=== PATIENT | female | born 1960 | race Caucasian/White ===

== ENCOUNTER 2023-08-22 06:49 | Outpatient (OUT) | payer OTHER, SELFPAY ==
--- NOTE | 2023-08-22 07:15 | MM_ITS ---
Patient Name: KEITH PELAEZ MR#: [id number] : 1960 Exam Date: 08/22/2023 Ordering Doctor: DR FRANKLIN [facility] REPORT PROCEDURE: MM TOMOSYNTHESIS SCREENING BI COMPARISON: MG MAMM SCREEN 3D LARY CAD, 08/13/2022. MG MAMM LT DIAG FU, 09/06/2022. INDICATIONS: Screening, Z12.31 Calculator Name NCI Breast Cancer Risk Assessment Tool 5 Year Breast Cancer Risk 2.40% Lifetime Breast Cancer Risk 10.00% Personal Breast Cancer No Personal Ovarian Cancer No Treatments None Family Cancers Grandmother-maternal with colon cancer at age ~60. LOCATION: [facility] BREAST COMPOSITION: Heterogeneously dense,which may obscure small masses. FINDINGS: DIAGNOSTIC CATEGORY 0--INCOMPLETE: NEED ADDITIONAL IMAGING EVALUATION. Heterogeneous nodular parenchymal pattern limits diagnostic sensitivity. RIGHT BREAST: New round density measuring 1.3 x 1.3 x 1.4 cm upper-outer quadrant, posterior breast. Ultrasound follow up recommended. Stable micro clip marker upper outer quadrant, anterior breast. Stable calcifications.. LEFT BREAST: New oval nodular density measuring 0.9 x 0.8 cm upper-outer quadrant, mid to posterior breast. Ultrasound follow-up recommended. RECOMMENDATIONS: ULTRASOUND: BILATERAL BREASTS PLEASE NOTE: A NORMAL MAMMOGRAM DOES NOT EXCLUDE THE POSSIBILITY OF BREAST CANCER. A CLINICALLY SUSPICIOUS PALPABLE LUMP SHOULD BE BIOPSIED. Dictated by: Franklin Renteria MD on 08/22/2023 at 07:27 Approved by: Franklin Renteria MD on 08/22/2023 at 07:30
== END 2023-08-22 06:50 | disposition home or self-care (01) ==
LOC: MAMMO 06:49
PROVIDERS: PCP Family Medicine; Visit Provider Family Medicine
DX: Z12.31 Encounter for screening mammogram for malignant neoplasm of breast (principal); Z80.0 Family history of malignant neoplasm of digestive organs; N63.11 Unspecified lump in the right breast, upper outer quadrant; N63.21 Unspecified lump in the left breast, upper outer quadrant
CPT/HCPCS: 77063; 77067

== ENCOUNTER 2023-09-05 13:56 | Outpatient (OUT) | payer OTHER, SELFPAY ==
--- NOTE | 2023-09-05 13:59 | US_ITS ---
Patient Name: KEITH PELAEZ MR#: [id number] : 1960 Exam Date: 09/05/2023 Ordering Doctor: DR FRANKLIN ST[facility] REPORT PROCEDURE: US BREAST BI LIMITED COMPARISON: MM TOMOSYNTHESIS SCREENING BI, 08/22/2023. INDICATIONS: Abnormal Mammogram TECHNIQUE: Breast ultrasound was performed, with evaluation focusing only on specific areas of concern. FINDINGS: DIAGNOSTIC CATEGORY 3--PROBABLY BENIGN FINDING. THE FOLLOWING FINDING(S) HAS A HIGH PROBABILITY OF A BENIGN ETIOLOGY: Ultrasound of the right breast demonstrates multiple cystic lesions many of which are anechoic and simple cysts. Identified in the retroareolar location is a multilocular complex cystic structure measuring 1.2 x 1.0 x 1.3 cm in size with some components having low-level echoes in the largest component being anechoic. Identified in the left breast are multiple cystic lesions, sub cm in size. These either anechoic or demonstrate some low level echoes and likely represent a combination of simple cysts and cysts with some debris Given the multiplicity of lesions and the ultrasound lesions not definitively matching in location to the mammographic lesions, I favor a 6 month follow-up to evaluate stability. RECOMMENDATIONS: SHORT TERM FOLLOW-UP DIAGNOSTIC MAMMOGRAM BILATERAL BREASTS IN 6 MONTHS. SHORT TERM FOLLOW-UP ULTRASOUND BILATERAL BREASTS IN 6 MONTHS. PLEASE NOTE: A NORMAL ULTRASOUND EXAMINATION DOES NOT EXCLUDE THE POSSIBILITY OF BREAST CANCER. A CLINICALLY SUSPICIOUS PALPABLE LUMP SHOULD BE BIOPSIED. Dictated by: Franklin Renteria MD on 09/05/2023 at 14:50 Approved by: Franklin Renteria MD on 09/05/2023 at 14:58
--- OUTSIDE RECORDS SUMMARY | 2023-09-05 13:59 | XMS_ITS | CCD ---
Author Name Unknown Address [address] [place] [address] Organization [facility] Care Team Providers Care Jinriksha Driver Name Role Phone FRANCISCORANCE, DR SHEPARD Admitting Unavailable DEFRANCE, DR SHEPARD Attending Unavailable ZIEBER, DR LAZ Albrecht Consulting Unavailable DEFRANCE, DR SHEPARD Primary Care Unavailable DEFRANCE, DR SHEPARD Consulting Unavailable DEFRANCE, DR SHEPARD Primary Care Unavailable DEFRANCE, DR SHEPADR Admitting Unavailable DEFRANCE, DR SHEPARD Attending Unavailable ZIEBER, DR LAZ Albrecht Consulting Unavailable DEFRANCE, DR SHEPARD Consulting Unavailable Defrance Drea ALBARRAN Primary Care Provider Medications Current Medications Medication Drug Class(es) Dates Sig (Normalized) Sig (Original) atorvastatin 10 mg oral tablet (2 sources) HMG-CoA Reductase Inhibitor Start: 06-26-20 atorvastatin (LIPITOR) 10 mg tablet TAKE 1 TABLET IN THE MORNING 90 tablet 3 06/26/2023 Active azithromycin 250 mg oral tablet (1 source) Macrolide Antimicrobial Start: 08-07-20 23 End: 08-11-19 24 azithromycin (ZITHROMAX) 250 mg tablet Take 2 tablets the first day, then 1 tablet daily for 4 days. 6 tablet 0 08/07/2023 08/11/2023 Active benzonatate 200 mg oral capsule (2 sources) Non-narcotic Antitussive Start: 08-07-20 23 take 1 capsule by mouth three times daily as needed for cough benzonatate (TESSALON PERLES) 200 mg capsule Take 1 capsule (200 mg total) by mouth 3 (three) times a day as needed for cough. 30 capsule 1 08/07/2023 Active candesartan cilexetil 32 mg oral tablet (2 sources) Angiotensin 2 Receptor Kim Start: 07-11-20 23 take 1 tablet by mouth in the morning candesartan (ATACAND) 32 mg tablet Take 1 tablet (32 mg total) by mouth in the morning. 90 tablet 3 07/11/2023 Active carisoprodol 350 mg oral tablet (2 sources) Muscle Relaxant Start: 04-24-20 take 1 tablet by mouth three times daily as needed for muscle spasms carisoprodoL (SOMA) 350 mg tablet Indications: Rheumatoid arthritis, erosive, seronegative (CMS-HCC) Take 1 tablet (350 mg total) by mouth 3 (three) times a day as needed for muscle spasms. 30 tablet 0 04/24/2023 Active celecoxib 200 mg oral capsule (2 sources) Nonsteroidal Anti-inflammatory Drug Start: 07-30-20 22 take 1 capsule by mouth in the morning, then take 1 capsule by mouth at bedtime celecoxib (CeleBREX) 200 mg capsule Take 1 capsule (200 mg total) by mouth in the morning and 1 capsule (200 mg total) before bedtime. 180 capsule 3 07/30/2022 Active diclofenac sodium 0.01 mg/mg topical gel (2 sources) Nonsteroidal Anti-inflammatory Drug Start: 04-10-20 diclofenac sodium (VOLTAREN) 1 % gel Apply 2 g topically in the morning and 2 g at noon and 2 g in the evening and 2 g before bedtime. 100 g 5 04/10/2022 Active esomeprazole 40 mg delayed release oral capsule (2 sources) Proton Pump Inhibitor Start: 07-11-20 take 1 capsule by mouth in the morning esomeprazole (NexIUM) 40 mg capsule Take 1 capsule (40 mg total) by mouth in the morning. 90 capsule 3 07/11/2023 Active estradiol 2 mg oral tablet (2 sources) Estrogen Start: 08-26-19 23 estradioL (ESTRACE) 2 mg tablet TAKE 1 TABLET IN THE MORNING 90 tablet 3 08/26/2022 Active fluconazole 100 mg oral tablet (1 source) Azole Antifungal Start: 08-08-20 End: 08-22-19 24 take 1 tablet by mouth in the morning fluconazole (DIFLUCAN) 100 mg tablet Take 1 tablet (100 mg total) by mouth in the morning for 14 days. 14 tablet 0 08/08/2023 08/22/2023 Active hydroCHLOROthiazide 25 mg oral tablet (2 sources) Thiazide Diuretic Start: 06-26-20 23 hydroCHLOROthiazide (HYDRODIURIL) 25 mg tablet TAKE 1 TABLET DAILY 90 tablet 3 06/26/2023 Active lidocaine 0.05 mg/mg medicated patch (2 sources) Antiarrhythmic, Amide Local Anesthetic Start: 02-27-20 apply 1 dose transdermal route once daily lidocaine (LIDODERM) 5 % APPLY 1 PATCH DAILY AND REMOVE AND DISCARD WITHIN 12 HOURS DIRECTED 90 patch 1 02/26/2021 Active meclizine hydrochloride 25 mg oral tablet (2 sources) Antiemetic Start: 07-28-20 21 take 1 tablet by mouth three times daily as needed for dizziness meclizine (ANTIVERT) 25 mg tablet Take 1 tablet (25 mg total) by mouth 3 (three) times a day as needed for dizziness. 30 tablet 5 07/28/2021 Active medroxyPROGESTERone acetate 5 mg oral tablet (2 sources) Progestin Start: 08-26-19 23 medroxyPROGESTERone (PROVERA) 5 mg tablet TAKE 1 TABLET EVERY MORNING 90 tablet 3 08/26/2022 Active meloxicam 15 mg oral tablet (2 sources) Nonsteroidal Anti-inflammatory Drug Start: 11-21-19 23 take 1 tablet by mouth in the morning meloxicam (MOBIC) 15 mg tablet Take 1 tablet (15 mg total) by mouth in the morning. 90 tablet 3 11/20/2022 Active predniSONE 10 mg oral tablet (3 sources) Start: 08-22-19 24 predniSONE (DELTASONE) 10 mg tablet Takes as needed 90 tablet 3 08/22/2023 Active Start: 09-09-2022 End: 08-22-2023 take 1 tablet by mouth once daily predniSONE (DELTASONE) 10 mg tablet TAKE 1 TABLET BY MOUTH EVERY DAY 90 tablet 3 09/09/2022 08/22/2023 Discontinued Problems Active Problems Problem Classification Problem Date Documented Date Episodic/Chronic Anxiety disorders (2 sources) Panic disorder; Translations: [Panic disorder [episodic paroxysmal anxiety]] 08-17-2021 Chronic Esophageal disorders (2 sources) Gastroesophageal reflux disease; Translations: [Gastro-esophageal reflux disease without esophagitis] 08-17-2021 Chronic Nonmalignant breast conditions (1 source) Solitary cyst of left breast; Translations: [SOLITARY CYST OF LEFT BREAST] Onset: 09-10-2022 Episodic Osteoarthritis (6 sources) Osteoarthritis of left knee joint; Translations: [Unilateral primary osteoarthritis, left knee] Onset: 04-16-2018 Resolved: 08-17-2021 08-17-2021 Chronic Other connective tissue disease (2 sources) History of total knee arthroplasty; Translations: [Presence of left artificial knee joint] Onset: 07-31-2022 07-31-2022 Chronic Other screening for suspected conditions (not mental disorders or infectious disease) (9 sources) Other abnormal and inconclusive findings on diagnostic imaging of breast; Translations: [Encounter for screening mammogram for malignant neoplasm of breast] Onset: 08-13-2022 Episodic Residual codes; unclassified (1 source) Family history of malignant neoplasm of digestive organs; Translations: [FAM HX MALIG NEOPLASM DIGESTIV ORGN] Onset: 08-18-2022 Episodic Rheumatoid arthritis and related disease (2 sources) Rheumatoid arthritis; Translations: [Rheumatoid arthritis, unspecified] Onset: 07-01-2020 08-17-2021 Chronic Past or Other Problems Problem Classification Problem Date Documented Date Episodic/Chronic Biliary tract disease (2 sources) Cholelithiasis without obstruction; Translations: [Calculus of gallbladder without cholecystitis without obstruction] Onset: 07-11-2022 07-11-2022 Episodic Calculus of urinary tract (2 sources) Kidney stone; Translations: [Calculus of kidney] Onset: 04-17-2022 08-20-2022 Episodic Genitourinary symptoms and ill-defined conditions (2 sources) Difficulty passing urine; Translations: [Other difficulties with micturition] Onset: 04-17-2022 05-15-2022 Episodic Menopausal disorders (2 sources) Postmenopausal state; Translations: [Hormone replacement therapy] Onset: 08-16-2021 08-17-2021 Episodic Mood disorders (2 sources) Mood disorders Onset: 07-10-2022 07-10-2022 Other diseases of kidney and ureters (2 sources) Cyst of kidney; Translations: [Cyst of kidney, acquired] Onset: 05-15-2022 05-15-2022 Episodic Other non-traumatic joint disorders (2 sources) Pain in left knee; Translations: [Pain in joint, lower leg] Onset: 08-01-2021 08-01-2021 Episodic Results Test Name Value Interpretation Reference Range Facil ity MG MAMM LT DIAG FUon 023 MG MAMM LT DIAG Patient: SALMA DING. Exam Date: 09/06/2022 : 1960 Gender:F Ordering : DR DREA STEVENS Admission #: [id number] Family : Order #: [id number] CLICK HERE TO VIEW EXAM RADIOLOGY REPORT PROCEDURE: MAMMOGRAM LEFT DIAGNOSTIC DIGITAL FOLLOW UP, 09/06/2022, 12:40 ULTRASOUND BREAST LEFT LIMITED, 09/06/2022, 13:13 COMPARISON: MG MAMM SCREEN 3D LARY CAD, 08/13/2022. INDICATIONS: Abnormal findings on diagnostic imaging of breast Calculator Name NCI Breast Cancer Risk Assessment Tool 5 Year Breast Cancer Risk 2.30% Lifetime Breast Cancer Risk 10.30% Personal Breast Cancer No Personal Ovarian Cancer No Treatments None Family Cancers Grandmother-maternal with colon cancer at age 60. LOCATION: [facility] BREAST COMPOSITION: Heterogeneously dense,which may obscure small masses. FINDINGS: DIAGNOSTIC CATEGORY 2--BENIGN FINDING: LEFT BREAST: Spot magnification views demonstrate persistence of small subtle round opacities within the subareolar region. Ultrasound evaluation demonstrates several benign-appearing cysts, largest is 9 millimeters. Slightly complex but overall benign-appearing cyst or collection of cysts at the 6 o'clock subareolar region, 13 x 10 x 5 millimeters. Annual screening mammography is recommended. RECOMMENDATIONS: ROUTINE MAMMOGRAM AND CLINICAL EVALUATION IN 12 MONTHS. PLEASE NOTE: A NORMAL MAMMOGRAM DOES NOT EXCLUDE THE POSSIBILITY OF BREAST CANCER. A CLINICALLY SUSPICIOUS PALPABLE LUMP SHOULD BE BIOPSIED. Dictated by: Laz Jean M.D. on 09/06/2022 at 13:21 Approved by: Laz Jean M.D. on 09/06/2022 at 14:52 Normal [facility] US BREAST LEFT LIMITEDon US BREAST LEFT LIMITED Patient: SALMA DING. Exam Date: 09/06/2022 : 1960 Gender:F Ordering : DR DREA STEVENS Admission #: [id number] Family : Order #: [id number] CLICK HERE TO VIEW EXAM RADIOLOGY REPORT PROCEDURE: MAMMOGRAM LEFT DIAGNOSTIC DIGITAL FOLLOW UP, 09/06/2022, 12:40 ULTRASOUND BREAST LEFT LIMITED, 09/06/2022, 13:13 COMPARISON: MG MAMM SCREEN 3D LARY CAD, 08/13/2022. INDICATIONS: Abnormal findings on diagnostic imaging of breast Calculator Name NCI Breast Cancer Risk Assessment Tool 5 Year Breast Cancer Risk 2.30% Lifetime Breast Cancer Risk 10.30% Personal Breast Cancer No Personal Ovarian Cancer No Treatments None Family Cancers Grandmother-maternal with colon cancer at age 60. LOCATION: [facility] BREAST COMPOSITION: Heterogeneously dense,which may obscure small masses. FINDINGS: DIAGNOSTIC CATEGORY 2--BENIGN FINDING: LEFT BREAST: Spot magnification views demonstrate persistence of small subtle round opacities within the subareolar region. Ultrasound evaluation demonstrates several benign-appearing cysts, largest is 9 millimeters. Slightly complex but overall benign-appearing cyst or collection of cysts at the 6 o'clock subareolar region, 13 x 10 x 5 millimeters. Annual screening mammography is recommended. RECOMMENDATIONS: ROUTINE MAMMOGRAM AND CLINICAL EVALUATION IN 12 MONTHS. PLEASE NOTE: A NORMAL MAMMOGRAM DOES NOT EXCLUDE THE POSSIBILITY OF BREAST CANCER. A CLINICALLY SUSPICIOUS PALPABLE LUMP SHOULD BE BIOPSIED. Dictated by: Laz Jean M.D. on 09/06/2022 at 13:21 Approved by: Laz Jena M.D. on 09/06/2022 at 14:52 Normal [facility] MG MAMM SCREEN 3D LARY CADon 08-13-2022 MG MAMM SCREEN 3D LARY CAD Patient: SALMA DING Exam Date: 08/13/2022 : 1960 Gender:F Ordering : DR DREA STEVENS Admission #: [id number] Family : Order #: [id number] CLICK HERE TO VIEW EXAM RADIOLOGY REPORT PROCEDURE: MAMMOGRAM SCREENING 3D BILATERAL CAD COMPARISON: MG MAMM SCREEN LARY W CAD, 07/11/2020. MG MAMM SCREEN LARY W CAD, 07/07/2019. MAMMO LARY SCREEN, 07/13/2010. MG MAMM SCREEN 3D LARY CAD, 07/31/2021. INDICATIONS: Screening mammography Calculator Name NCI Breast Cancer Risk Assessment Tool 5 Year Breast Cancer Risk 2.30% Lifetime Breast Cancer Risk 10.30% Personal Breast Cancer No Personal Ovarian Cancer No Treatments None Family Cancers Grandmother-maternal with colon cancer at age 60. LOCATION: [facility] BREAST COMPOSITION: Heterogeneously dense,which may obscure small masses. FINDINGS: DIAGNOSTIC CATEGORY 0--INCOMPLETE: NEED ADDITIONAL IMAGING EVALUATION. RIGHT BREAST: No significant suspicious finding. No significant change has occurred. LEFT BREAST: 2 adjacent well-circumscribed nodules within the subareolar region seen only on tomography; approximately 12 millimeters and 9 millimeters respectively. Spot magnification views and ultrasound evaluation recommended. RECOMMENDATIONS: ADDITIONAL MAMMOGRAPHIC VIEWS REQUIRED: LEFT BREAST - LEFT CRANIOCAUDAL SPOT MAGNIFICATION VIEW - LEFT OBLIQUE SPOT MAGNIFICATION VIEW - ULTRASOUND: LEFT BREAST PLEASE NOTE: A NORMAL MAMMOGRAM DOES NOT EXCLUDE THE POSSIBILITY OF BREAST CANCER. A CLINICALLY SUSPICIOUS PALPABLE LUMP SHOULD BE BIOPSIED. Dictated by: Laz Jean M.D. on 08/15/2022 at 08:08 Approved by: Laz Jean M.D. on 08/15/2022 at 08:14 Normal [facility] 06-03-2020 ALT No additional P-5'-P [Catalytic activity/Vol] 16 Int._Unit/L Normal - [facility] Comment on above: Performed By: #### 2 019466, 4392886, 38523013, 3827490, 2173843, 5616938, [id number] #### [facility] [address] [place] [address] Diane 06-03-2020 AST [Catalytic activity/Vol] 17 Int._Unit/L Normal -43 [facility] Comment on above: Performed By: #### 2 638487, 0647009, 76774242, 0176774, 2654916, 6106052, [id number] #### [facility] [address] [place] [address] BMPon 06-03-2020 Anion gap [Moles/Vol] 13 mmol/L Normal 01-24 [facility] Comment on above: Performed By: #### 2 897487, 2765326, 00480930, 3854512, 9497258, 6509147, [id number] #### [facility] [address] [place] [address] Calcium [Mass/Vol] 9.2 mg/dL Normal 8.9-11.1 [facility] Comment on above: Performed By: #### 2 872281, 2817654, 81391721, 2528871, 2234848, 9213185, [id number] #### [facility] [address] [place] [address] Chloride [Moles/Vol] 103 mmol/L Normal 101-111 [facility] Comment on above: Performed By: #### 2 372251, 0925844, 24793541, 3146697, 7793663, 2070279, [id number] #### [facility] [address] [place] [address] CO2 [Moles/Vol] 29 mmol/L Normal 21-31 [facility] Comment on above: Performed By: #### 2 100469, 0330073, 30126411, 6628110, 3825717, 1450445, 195101986 #### [facility] [address] [place] [address] Creatinine [Mass/Vol] 0.6 mg/dL Normal 0.5-1.3 [facility] Comment on above: Performed By: #### 2 787364, 4546253, 45187384, 7401240, 1843900, 0169289, [id number] #### [facility] [address] [place] [address] Glucose [Mass/Vol] 88 mg/dL Normal 55-199 [facility] Comment on above: Result Comment: If t his glucose result represents a fasting glucose, interpretation should refer to the following reference range: 55-99 mg/dL Performed By: #### 2 169279, 3625400, 70806734, 3837676, 6729036, 8360643, 793810298 #### [facility] [address] [place] [address] Potassium [Moles/Vol] 4.6 mmol/L Normal 3.5-5.3 [facility] Comment on above: Performed By: #### 2 433943, 7141814, 16947254, 3271285, 4181649, 1688346, 740232646 #### [facility] [address] [place] [address] Sodium [Moles/Vol] 140 mmol/L Normal 135-145 [facility] Comment on above: Performed By: #### 2 034259, 2604809, 84272935, 9364105, 8416743, 7421882, 551276215 #### [facility] [address] [place] [address] Urea nitrogen [Mass/Vol] 19 mg/dL Normal 5-21 [facility] Comment on above: Performed By: #### 2 743160, 4130193, 63554302, 4764090, 5481734, 8343784, 246063610 #### [facility] [address] [place] [address] Urea nitrogen/Creatinine [Mass ratio] 32 No Units High 10-20 [facility] Comment on above: Performed By: #### 2 029836, 5243365, 71092311, 4974461, 0452104, 6820035, 139026803 #### [facility] [address] [place] [address] CBC w/Indiceson 06-03-2020 Erythrocyte distribution width (RBC) [Ratio] 13.5 % Normal 10.9-14.2 [facility] Comment on above: Performed By: #### 2 695659, 3787960, 52757937, 8013461, 5658434, 6196438, 490956763 #### [facility] [address] [place] [address] Hematocrit (Bld) [Volume fraction] 41.7 % Normal 34.0-46.0 [facility] Comment on above: Performed By: #### 2 386956, 5003517, 95347064, 3029241, 1884532, 9548476, 953426513 #### [facility] [address] [place] [address] Hemoglobin (Bld) [Mass/Vol] 14.2 g/dL Normal 12.0-16.0 [facility] Comment on above: Performed By: #### 2 056893, 0397041, 50034009, 2175462, 6808496, 1891829, 598946636 #### [facility] [address] [place] [address] MCH (RBC) [Entitic mass] 30.7 pg Normal 27.0-34.0 [facility] Comment on above: Performed By: #### 2 396216, 2411845, 74915432, 1407249, 2555329, 3078897, 341074795 #### [facility] [address] [place] [address] MCHC (RBC) [Mass/Vol] 34.0 g/dL Normal 31.4-36.0 [facility] Comment on above: Performed By: #### 2 634019, 3402114, 72537414, 9227485, 7388675, 3912767, 758264911 #### [facility] [address] [place] [address] MCV (RBC) [Entitic vol] 90.3 fL Normal 80.0-100.0 [facility] Comment on above: Performed By: #### 2 979018, 6577309, 72738776, 7188276, 5565206, 7812976, 346007748 #### [facility] [address] [place] [address] Platelet mean volume (Bld) [Entitic vol] 8.5 fL Normal 6.4-10.8 [facility] Comment on above: Performed By: #### 2 399829, 4240780, 86235081, 0219126, 7765785, 4195759, 776314371 #### [facility] [address] [place] [address] Platelets (Bld) [#/Vol] 258.0 E9/L Normal 150.0-500.0 [facility] Comment on above: Performed By: #### 2 016215, 2467564, 32200045, 7058623, 0669262, 9325884, 748028920 #### [facility] [address] [place] [address] RBC (Bld) [#/Vol] 4.6 E12/L Normal 4.3-5.9 [facility] Comment on above: Performed By: #### 2 967764, 1110480, 80057388, 4663007, 6926790, 7234606, 761380470 #### [facility] [address] [place] [address] WBC corrected for nucl RBC Auto (Bld) [#/Vol] 8.6 E9/L Normal 4.0-11.0 [facility] Comment on above: Performed By: #### 2 000679, 6800420, 64863683, 0135304, 8279154, 6772179, 125097956 #### [facility] [address] [place] [address] Lipid Panelon 06-03-2020 Cholesterol [Mass/Vol] 172 mg/dL Normal 120-200 [facility] Comment on above: Performed By: #### 2 653839, 9174663, 46617132, 7311710, 0284452, 2431655, 115454223 #### [facility] [address] [place] [address] Cholesterol in HDL [Mass/Vol] 53 mg/dL [facility] Comment on above: Result Comment: HDL > or equal to 60 mg/dL: Low cardiovascular risk HDL < 40 mg/dL : High cardiovascular risk Performed By: #### 2 464854, 8976483, 38493091, 6492834, 3310881, 6885656, 532072191 #### [facility] [address] [place] [address] Cholesterol in LDL [Mass/Vol] 104 mg/dL Normal <=129 [facility] Comment on above: Performed By: #### 2 259663, 6656770, 52012174, 4278918, 4611664, 5920885, 443300970 #### [facility] [address] [place] [address] Cholesterol in VLDL [Mass/Vol] 18 mg/dL Normal 7-40 [facility] Comment on above: Performed By: #### 2 554700, 2046151, 80684662, 9211803, 2423531, 2186664, 262240076 #### [facility] [address] [place] [address] Triglyceride [Mass/Vol] 88 mg/dL Normal <=149 [facility] Comment on above: Performed By: #### 2 480685, 2866342, 78693561, 7788781, 1629536, 2586056, 274852523 #### [facility] [address] [place] [address] Vitamin D 25 Hydroxyon 06-03 Calcidiol [Mass/Vol] 32.2 ng/mL Normal 30.0-100.0 [facility] Comment on above: Result Comment: Vit lopez D deficiency has been defined as a level of serum 25-OH vitamin D less than 20 ng/mL (1,2) by the [place] [employer] and an Endocrine Society practice guideline. The Endocrine Society further defined vitamin D insufficiency as a level between 21 and 29 ng/mL (2). 1. IOM ([place] [employer]). 2010. Dietary reference intakes for calcium and D. [place]: The National Academies Press. 2. Cullen MF, Meri NC, Krissy PIERCE, et al. Evaluation, treatment, and prevention of vitamin D deficiency: an Endocrine Society clinical practice guideline. JCEM. 2010; 96 (7):1911-30. Performed By: #### 2 173194, 8448109, 57319580, 0254980, 2617407, 9709030, 143488540 #### [facility] [address] [place] [address] eGFRon 06-03-2020 GFR/1.73 sq M predicted among blacks MDRD (S/P/Bld) [Vol rate/Area] mL/min/{1.73_m2} Normal >=59 [facility] Comment on above: Order Comment: Order added by Discern Expert. Result Comment: eGFR is race adjusted. AA=. Performed By: #### 2 033440, 8564904, 46046368, 4625064, 6263834, 3414708, 299527189 #### [facility] [address] [place] [address] GFR/1.73 sq M predicted among non-blacks MDRD (S/P/Bld) [Vol rate/Area] mL/min/{1.73_m2} Normal >=59 [facility] Comment on above: Order Comment: Order added by Discern Expert. Result Comment: Education Teacher anh kidney disease could be indicated at eGFR's of less than 60 mL/min/1.73m2. Kidney failure is indicated at less than 15 mL/min/1.73m2. Performed By: #### 2 952863, 7019566, 73010228, 4027240, 4877403, 1096773, [id number] #### [facility] [address] [place] [address] Encounters Encounter Date Encounter Type Care Provider Facility Start: 08-22-2023 Refill Drea gomez MD Work Phone: [facility] Start: 08-07-2023 Orders Only Drea gomez MD Work Phone: [facility] Start: 09-06-2022 End: 09-07-[address] DREA STEVENS Facility:[facility] Start: 08-13-2022 End: 08-14-[address] DREA STEVENS Facility:[facility] Procedures Date Procedure Procedure Detail Performing Clinician Start: 08-22-2023 Mammography Drea altamirano MD Work Phone: Start: 09-06-2022 Mammography Drea altamirano MD Work Phone: Start: 07-10-2022 Adult depression scr eening assessment Drea Stevens MD Work Phone: Plan of Treatment Date Care Activity Detail Author Start: 08-22-2024 Screening for malignant neoplasm of breast Mammogram [facility] Start: 07-11-2024 Adult BMI Screening Adult BMI Screening [facility] Start: 07-11-2024 Tobacco Screening Tobacco Screening [facility] Start: 07-06-2024 End: 11-26-2024 Patient encounter procedure 07/06/2024 8:00 AM EST Office Visit [facility] [address] [place] [address] Drea Stevens MD [address] [place] [address] [facility] Start: 09-06-2023 Screening for malignant neoplasm of breast Mammogram [facility] Start: 07-10-2023 Depression Screening Depression Screening [facility] Start: 04-11-2023 COVID-19 Vaccine ( season) COVID-19 Vaccine () [facility] Start: 2009 Administration of varicella zoster vaccine Zoster (Shingles) Vaccine (1 of 2) [facility] Start: 1980 Screening for malignant neoplasm of cervix Pap Smear [facility] Start: 1978 DTaP,Tdap and Td Vaccines (1 - Tdap) DTaP,Tdap and Td Vaccines (1 - Tdap) [facility] Start: 1977 Adult BMI Follow Up Plan Adult BMI Follow Up Plan [facility] Immunizations Immunization Date Immunization Notes Care Provider [facility] 06-08-2022 influenza, injectabl e, quadrivalent, preservative free Drea Stevens MD Work Phone: [facility] 09-15-2020 COVID-19, mRNA, LNP- S, PF, 100mcg/0.5mL Dose Drea Stevens MD Work Phone: [facility] 08-18-2020 COVID-19, mRNA, LNP- S, PF, 100mcg/0.5mL Dose Drea Stevens MD Work Phone: [facility] 05-26-2020 influenza, injectabl e, quadrivalent, preservative free Drea Stevens MD Work Phone: [facility] Payers Date Payer Category Payer Unknown [employer] [id number] 2018-Present [phone] [address] [place] [address] [id number] 1959 Unknown [id number] 1959 Unknown [id number] 1959 Unknown [id number] Social History Date Type Detail Facility Start: 07-11-2022 Tobacco smoking status NHIS Never smoked tobacco [facility] Start: 07-11-2022 Tobacco use and exposure Smokeless tobacco non-user [facility] Start: 07-11-2023 Alcohol intake Current drinker of alcohol (finding) [facility] Start: 07-10-2022 End: 07-10-2023 History of Social function [facility] Start: 07-10-2022 End: 07-10-2023 Social connection and isolation panel [facility] Do you belong to any clubs or organizations such as latter-day groups, unions, fraternal or athletic groups, or school groups? No [facility] Are you now , , , , never or living with a partner? [facility] How often to you hav e a drink containing alcohol? Monthly or less [facility] How many standard dr inks containing alcohol do you have on a typical day? 1 or 2 [facility] How often do you hav e 6 or more drinks on 1 occasion? Never [facility] How hard is it for y ou to pay for the very basics like food, housing, medical care, and heating Not hard at all [facility] Do you feel stress - tense, restless, nervous, or anxious, or unable to sleep at night because your mind is troubled all the time - these days [OSQ] Not at all [facility] Start: 06-29-2020 Education 15 [facility] Start: 07-11-2022 Alcohol Comment rarely [facility] Start: 1960 Sex Assigned At Female [facility] Start: 05-30-2021 Gender identity Identifies as female gender (finding) [facility] Start: 05-30-2021 Sexual orientation Heterosexual (finding) [facility] Medical Equipment Procedure Code Equipment Code Equipment Origin al Text Equipment Identifier Dates Bearing Tib [id number] Kn Ant Stab Inlay Vngrd Arcm - [id number] Start: 08-16-2021 Cement Bn Bio 40 gm Rpl [id number] - [id number] Start: 08-16-2021 Component Ptlr T hn 6.2mm 31mm 3 Pg Wr Vngrd Kn Strl Ser A - [id number] Start: 08-16-2021 Goals Date Patient Goal Desired Activity /State Personal health goal Comment on above: Formatting of this n ote might be different from the original. Evaluation of progress towards goal: Maximize work with PT at discharge to strengthen L knee Instructions Note Date & Type Note Facility Instructions Not on filedocumented in this en counter [facility] Instructions Note Date & Type Note Facility Instructions Not on filedocumented in this en counter [facility] Summary Purpose Family History No Family History Records FoundNo Family History Records Found Advance Directives Documents on File Type Date Recorded Patient Promotional Representative Expl anation Living Will 08/06/2021 1:39 PM [employer]IV[employer] [place] [employer] Durable Power of Filling Layer Up 08/06/2021 1:39 PM POA Latest Code Status on File Code Status Date Activated Date Inactivated Comments Full Code 08/16/2021 11:50 AM 08/17/2021 11:53 AM Additional Source Comments INFORMATION SOURCE (unrecogn ized section and content) DATE CREATED AUTHOR 06/03/2020 Leblanc Yusef [facility] DATE CREATED AUTHOR AUTHOR'S ORGANIZ ATION 09/11/2022 [facility] (unrecognized sec tion and content) Jinriksha Driver Relationship Specialty Start Date End Date Drea Stevens MD [address] [place] [address] PCP - General Family Medicine 05/09/22 Jinriksha Driver Relationship Specialty Start Date End Date Drea Stevens MD [address] [address] PCP - General Family Medicine 05/09/22 Reason for Visit (unrecogniz ed section and content) Reason Comments Med Refill FOR RECORDS PERTAINING TO PATIENTS WHO ARE OR HAVE BEEN ENROLLED IN A CHEMICAL DEPENDENCY/SUBSTANCEABUSE PROGRAM, SOME INFORMATION MAY BE OMITTED. This clinical summary was aggregated from multiple sources. Caution should be exercised in using it in the provision of clinical care. This summary normalizes information from multiple sources, and as a consequence, information in this document may materially change the coding, format and clinical context of patient data. In addition, data may be omitted in some cases. CLINICAL DECISIONS SHOULD BE BASED ON THE PRIMARY CLINICAL RECORDS. [employer] provides no warranty or guarantee of the accuracy or completeness of information in this document.
== END 2023-09-05 13:57 | disposition home or self-care (01) ==
LOC: US 13:56
PROVIDERS: PCP Family Medicine; Visit Provider Family Medicine
DX: R92.8 Other abnormal and inconclusive findings on diagnostic imaging of breast (principal); N60.02 Solitary cyst of left breast; N60.01 Solitary cyst of right breast
CPT/HCPCS: 76642

== ENCOUNTER 2023-10-15 07:52 | Outpatient (OUT) | payer OTHER, SELFPAY ==
--- OUTSIDE RECORDS SUMMARY | 2023-10-15 07:55 | XMS_ITS | CCD ---
Author Name Unknown Address [address] [place] [id number] Organization [facility] Care Team Providers Care Supervisor Rework Name Role Phone RODNEY, DR SHEPARD Admitting Unavailable DEFRANCE, DR SHEPARD Attending Unavailable ZIEBER, DR LAZ Albrecht Consulting Unavailable DEFRANCE, DR SHEPARD Primary Care Unavailable DEFRANCE, DR SHEPARD Consulting Unavailable DEFRANCE, DR SHEPARD Primary Care Unavailable DEFRANCE, DR SHEPARD Admitting Unavailable DEFRANCE, DR SEHPARD Attending Unavailable ZIEBER, DR LAZ Albrecht Consulting Unavailable DEFRANCE, DR SHEPARD Consulting Unavailable Defrance Drea ALBARRAN Primary Care Provider [phone] RODNEY, DREA Macias Referring Unavailable RODNEY, DREA Macias Primary Care Unavailable PROVIDER, UNKNOWN Attending Unavailable PROVIDER, UNKNOWN Referring Unavailable DEFRANCE, DREA Macias Primary Care Unavailable Medications Current Medications Medication Drug Class(es) Dates Sig (Normalized) Sig (Original) atorvastatin 10 mg oral tablet (4 sources) HMG-CoA Reductase Inhibitor Start: 06-26-2023 atorvastatin (LIPITOR) 10 mg tablet TAKE 1 TABLET IN THE MORNING 90 tablet 3 06/26/2023 Active azithromycin 250 mg oral tablet (1 source) Macrolide Antimicrobial Start: 08-07-2023 End: 08-11-2023 azithromycin (ZITHROMAX) 250 mg tablet Take 2 tablets the first day, then 1 tablet daily for 4 days. 6 tablet 0 08/07/2023 08/11/2023 Active benzonatate 200 mg oral capsule (4 sources) Non-narcotic Antitussive Start: 08-07-2023 take 1 capsule by mouth three times daily as needed for cough benzonatate (TESSALON PERLES) 200 mg capsule Take 1 capsule (200 mg total) by mouth 3 (three) times a day as needed for cough. 30 capsule 1 08/07/2023 Active candesartan cilexetil 32 mg oral tablet (4 sources) Angiotensin 2 Receptor Kim Start: 07-11-2023 take 1 tablet by mouth in the morning candesartan (ATACAND) 32 mg tablet Take 1 tablet (32 mg total) by mouth in the morning. 90 tablet 3 07/11/2023 Active carisoprodol 350 mg oral tablet (5 sources) Muscle Relaxant Start: 09-29-2023 take 1 tablet by mouth three times daily as needed for muscle spasms carisoprodoL (SOMA) 350 mg tablet Indications: Rheumatoid arthritis, erosive, seronegative (CMS-HCC) Take 1 tablet (350 mg total) by mouth 3 (three) times a day as needed for muscle spasms. 30 tablet 0 09/29/2023 Active Start: 04-24-2023 End: 09-29-2023 take 1 tablet by mouth three times daily as needed for muscle spasms carisoprodoL (SOMA) 350 mg tablet Indications: Rheumatoid arthritis, erosive, seronegative (CMS-HCC) Take 1 tablet (350 mg total) by mouth 3 (three) times a day as needed for muscle spasms. 30 tablet 0 04/24/2023 09/29/2023 Discontinued (Reorder) celecoxib 200 mg oral capsule (4 sources) Nonsteroidal Anti-inflammatory Drug Start: 07-30-2022 take 1 capsule by mouth in the morning, then take 1 capsule by mouth at bedtime celecoxib (CeleBREX) 200 mg capsule Take 1 capsule (200 mg total) by mouth in the morning and 1 capsule (200 mg total) before bedtime. 180 capsule 3 07/30/2022 Active diclofenac sodium 0.01 mg/mg topical gel (4 sources) Nonsteroidal Anti-inflammatory Drug Start: 04-10-2022 diclofenac sodium (VOLTAREN) 1 % gel Apply 2 g topically in the morning and 2 g at noon and 2 g in the evening and 2 g before bedtime. 100 g 5 04/10/2022 Active esomeprazole 40 mg delayed release oral capsule (4 sources) Proton Pump Inhibitor Start: 07-11-2023 take 1 capsule by mouth in the morning esomeprazole (NexIUM) 40 mg capsule Take 1 capsule (40 mg total) by mouth in the morning. 90 capsule 3 07/11/2023 Active estradiol 2 mg oral tablet (5 sources) Estrogen Start: 09-11-2023 estradioL (ESTRACE) 2 mg tablet TAKE 1 TABLET EVERY MORNING 90 tablet 3 09/11/2023 Active Start: 08-26-2022 End: 09-11-2023 estradioL (ESTRACE) 2 mg tab let TAKE 1 TABLET IN THE MORNING 90 tablet 3 08/26/2022 09/11/2023 Discontinued fluconazole 100 mg oral tablet (1 source) Azole Antifungal Start: 08-08-2023 End: 08-22-2023 take 1 tablet by mouth in the morning fluconazole (DIFLUCAN) 100 mg tablet Take 1 tablet (100 mg total) by mouth in the morning for 14 days. 14 tablet 0 08/08/2023 08/22/2023 Active hydroCHLOROthiazide 25 mg oral tablet (4 sources) Thiazide Diuretic Start: 06-26-2023 hydroCHLOROthiazide (HYDRODIURIL) 25 mg tablet TAKE 1 TABLET DAILY 90 tablet 3 06/26/2023 Active lidocaine 0.05 mg/mg medicated patch (4 sources) Antiarrhythmi c, Amide Local Anesthetic Start: 02-26-2021 apply 1 dose transdermal route once daily lidocaine (LIDODERM) 5 % APPLY 1 PATCH DAILY AND REMOVE AND DISCARD WITHIN 12 HOURS DIRECTED 90 patch 1 02/26/2021 Active meclizine hydrochloride 25 mg oral tablet (4 sources) Antiemetic Start: 07-28-2021 take 1 tablet by mouth three times daily as needed for dizziness meclizine (ANTIVERT) 25 mg tablet Take 1 tablet (25 mg total) by mouth 3 (three) times a day as needed for dizziness. 30 tablet 5 07/28/2021 Active medroxyPROGESTERone acetate 5 mg oral tablet (5 sources) Progestin Start: 09-11-2023 medroxyPROGESTERone (PROVERA) 5 mg tablet TAKE 1 TABLET EVERY MORNING 90 tablet 3 09/11/2023 Active Start: 08-26-2022 End: 09-11-2023 medroxyPROGESTERone (PROVERA ) 5 mg tablet TAKE 1 TABLET EVERY MORNING 90 tablet 3 08/26/2022 09/11/2023 Discontinued meloxicam 15 mg oral tablet (4 sources) Nonsteroidal Anti-inflammatory Drug Start: 11-20-2022 take 1 tablet by mouth in the morning meloxicam (MOBIC) 15 mg tablet Take 1 tablet (15 mg total) by mouth in the morning. 90 tablet 3 11/20/2022 Active predniSONE 10 mg oral tablet (5 sources) Start: 08-22-2023 predniSONE (DELTASONE) 10 mg tablet Takes as needed 90 tablet 3 08/22/2023 Active Start: 09-09-2022 End: 08-22-2023 take 1 tablet by mouth once daily predniSONE (DELTASONE) 10 mg tablet TAKE 1 TABLET BY MOUTH EVERY DAY 90 tablet 3 09/09/2022 08/22/2023 Discontinued Problems Active Problems Problem Classification Problem Date Documented Date Episodic/Chronic Anxiety disorders (4 sources) Panic disorder; Translations: [Panic disorder [episodic paroxysmal anxiety]] 08-17-2021 Chronic Esophageal disorders (4 sources) Gastroesophageal reflux disease; Translations: [Gastro-esophageal reflux disease without esophagitis] 08-17-2021 Chronic Nonmalignant breast conditions (1 source) Solitary cyst of left breast; Translations: [SOLITARY CYST OF LEFT BREAST] Onset: 09-10-2022 Episodic Osteoarthritis (12 sources) Osteoarthritis of left knee joint; Translations: [Unilateral primary osteoarthritis, left knee] Onset: 04-16-2018 Resolved: 08-17-2021 08-17-2021 Chronic Other connective tissue disease (4 sources) History of total knee arthroplasty; Translations: [...] 08-18-2022 Episodic Rheumatoid arthritis and related disease (5 sources) Rheumatoid arthritis; Translations: [Rheumatoid arthritis, unspecified] Onset: 07-01-2020 08-17-2021 Chronic Past or Other Problems Problem Classification Problem Date Documented Date Episodic/Chronic Biliary tract disease (4 sources) Cholelithiasis without obstruction; Translations: [Calculus of gallbladder without cholecystitis without obstruction] Onset: 07-11-2022 07-11-2022 Episodic Calculus of urinary tract (5 sources) Kidney stone; Translations: [Calculus of kidney] Onset: 04-17-2022 08-20-2022 Episodic Genitourinary symptoms and ill-defined conditions (4 sources) Difficulty passing urine; Translations: [Other difficulties with micturition] Onset: 04-17-2022 05-15-2022 Episodic Menopausal disorders (4 sources) Postmenopausal state; Translations: [Hormone replacement therapy] Onset: 08-16-2021 08-17-2021 Episodic Mood disorders (4 sources) Mood disorders Onset: 07-10-2022 07-10-2022 Other diseases of kidney and ureters (4 sources) Cyst of kidney; Translations: [Cyst of kidney, acquired] Onset: 05-15-2022 05-15-2022 Episodic Other non-traumatic joint disorders (4 sources) Pain in left knee; Translations: [Pain in joint, lower leg] Onset: 08-01-2021 08-01-2021 Episodic Results Test Name Value Interpretation Reference Range Facil ity XR ABDOMEN AP 1 VWon 024 XR ABDOMEN AP 1 VW XR ABDOMEN AP 1 VW HISTORY: Nephrolithiasis. COMPARISON: CT abdomen and pelvis on 04/30/2022. Abdominal radiograph on 04/17/2022. TECHNIQUE: Frontal views of the abdomen. FINDINGS: Overlying bowel gas limits assessment. Within this limitation: Numerous calculi projecting over the bilateral renal shadows are redemonstrated, without significant change in size or position. The largest on the left within the superior renal pole and measures 5 mm. The largest on the right measures 4 mm in the right superior renal pole. Nonobstructive bowel gas pattern. Levoscoliosis of the lumbar spine, with apex at L2. IMPRESSION: Essentially stable numerous bilateral renal calculi measuring up to 5 mm on the left and 4 mm on the right. Approved by Resident Simi Dorantes MD on 09/12/2023 9:52 AM I, Michael Hughes MD have personally reviewed the image(s) and agree with and/or edited the report Finalized by Michael Hughes MD on 09/12/2023 10:00 AM Normal [facility] CBC AND AUTO DIFFon 09-04-19 ABSOLUTE BASOPHIL 0.0 X10E9/L Normal 0.0-0.2 [facility] Comment on above: Performed By: #### C BCA, CMP, 19309-1, THYR, 30501-9 #### [facility] ([id number]) [address] [address] [place] [address] ABSOLUTE NEUTROPHIL 4.1 X10E9/L Normal 1.5-6.6 [facility] Comment on above: Performed By: #### C BCA, CMP, 55402-8, THYR, 43902-2 #### [facility] ([id number]) [address] [address] [place] [address] Basophils/100 WBC (Bld) 0.4 % Normal [facility] Comment on above: Performed By: #### C BCA, CMP, 36967-5, THYR, 97580-5 #### [facility] ([id number]) [address] [place] [address] Eosinophils (Bld) [#/Vol] 0.2 10*3/uL Normal 0.0-0.4 [facility] Comment on above: Performed By: #### C BCA, CMP, 20959-0, THYR, 51744-8 #### [facility] ([id number]) [address] [address] [place] [address] Eosinophils/100 WBC (Bld) 3.4 % Normal [facility] Comment on above: Performed By: #### C BCA, CMP, 41819-1, THYR, 56706-6 #### [facility] ([id number]) [address] [address] [place] [address] Erythrocyte distribution width (RBC) [Ratio] 13.8 % Normal 11.5-15.0 [facility] Comment on above: Performed By: #### C BCA, CMP, 11094-5, THYR, 02430-1 #### [facility] ([id number]) [address] [address] [place] [address] Hematocrit (Bld) [Volume fraction] 39.0 % Normal 35-47 [facility] Comment on above: Performed By: #### C BCA, CMP, 64979-7, THYR, 03385-5 #### [facility] ([id number]) [address] [address] [place] [address] Hemoglobin (Bld) [Mass/Vol] 12.9 g/dL Normal 11.7-15.5 [facility] Comment on above: Performed By: #### C BCA, CMP, 88063-4, THYR, 64051-0 #### [facility] ([id number]) [address] [facility] [address] [place] [address] Lymphocytes (Bld) [#/Vol] 1.9 10*3/uL Normal 1.0-3.5 [facility] Comment on above: Performed By: #### C BCA, CMP, 12269-5, THYR, 36898-2 #### [facility] ([id number]) [address] [address] [place] [address] Lymphocytes/100 WBC (Bld) 28.0 % Normal [facility] Comment on above: Performed By: #### C BCA, CMP, 95437-6, THYR, 31028-0 #### [facility] ([id number]) [address] [facility] [address] [place] [address] MCH (RBC) [Entitic mass] 29.7 pg Normal 27-34 [facility] Comment on above: Performed By: #### C BCA, CMP, 21751-7, THYR, 81863-4 #### [facility] ([id number]) [address], [address] [place] [address] MCHC (RBC) [Mass/Vol] 33.1 g/dL Normal 32-36 [facility] Comment on above: Performed By: #### C BCA, CMP, 58575-7, THYR, 40807-7 #### [facility] ([id number]) [address], [address] [place] [address] MCV (RBC) [Entitic vol] 90 fL Normal 80-100 [facility] Comment on above: Performed By: #### C BCA, CMP, 25720-7, THYR, 57106-6 #### [facility] ([id number]) [address], [address] [place] [address] Monocytes (Bld) [#/Vol] 0.6 10*3/uL Normal 0-0.9 [facility] Comment on above: Performed By: #### C BCA, CMP, 64371-4, THYR, 26159-4 #### [facility] ([id number]) [address], [address] [place] [address] Monocytes/100 WBC (Bld) 8.8 % Normal [facility] Comment on above: Performed By: #### C BCA, CMP, 18370-5, THYR, 34090-5 #### [facility] ([id number]) [address], [address] [place] [address] Neutrophils/100 WBC (Bld) 59.4 % Normal [facility] Comment on above: Performed By: #### Daisy BCA, CMP, 97094-4, THYR, 59647-0 #### [facility] ([id number]) [address], [address] [place] [address] Platelet mean volume (Bld) [Entitic vol] 8.7 fL Normal 7-12 [facility] Comment on above: Performed By: #### C BCA, CMP, 49033-3, THYR, 77255-5 #### [facility] ([id number]) [address], [address] [place] [address] Platelets (Bld) [#/Vol] 248 10*3/uL Normal 150-450 [facility] Comment on above: Performed By: #### C BCA, CMP, 56299-0, THYR, 39872-8 #### [facility] ([id number]) [address], [address] [place] [address] RBC COUNT 4.36 X10E12/L Normal 3.80-5.20 [facility] Comment on above: Performed By: #### C BCA, CMP, 33460-5, THYR, 06466-0 #### [facility] ([id number]) [address], [address] [place] [address] WBC (Bld) [#/Vol] 6.9 10*3/uL Normal 4.0-11.0 [facility] Comment on above: Performed By: #### C BCA, CMP, 61689-3, THYR, 04453-4 #### [facility] ([id number]) [address] [place] [address] COMPREHENSIVE METABOLIC PANE Judah 09-04-2023 Albumin [Mass/Vol] 4.3 g/dL Normal 3.2-5.3 [facility] Comment on above: Performed By: #### C BCA, CMP, 56791-6, THYR, 87788-0 #### [facility] ([id number]) [address], [address] [place] [address] ALP [Catalytic activity/Vol] 51 U/L Normal 39-130 [facility] Comment on above: Performed By: #### C BCA, CMP, 75693-7, THYR, 57076-1 #### [facility] ([id number]) [address], [address] [place] [address] ALT [Catalytic activity/Vol] 13 U/L Normal 0-31 [facility] Comment on above: Performed By: #### C BCA, CMP, 39132-6, THYR, 85692-7 #### [facility] ([id number]) [address], [address] [place] [address] Anion gap [Moles/Vol] 6 mmol/L Normal 5-15 [facility] Comment on above: Performed By: #### C BCA, CMP, 60712-4, THYR, 78621-7 #### [facility] ([id number]) [address], [address] [place] [address] AST [Catalytic activity/Vol] 16 U/L Normal 0-41 [facility] Comment on above: Performed By: #### C BCA, CMP, 01690-3, THYR, 21815-0 #### [facility] ([id number]) [address], [address] [place] [address] Bilirubin [Mass/Vol] 0.4 mg/dL Normal 0.3-1.2 [facility] Comment on above: Performed By: #### C BCA, CMP, 47340-7, THYR, 59396-0 #### [facility] ([id number]) [address], [address] [place] [address] Calcium [Mass/Vol] 9.6 mg/dL Normal 8.5-10.5 [facility] Comment on above: Performed By: #### C BCA, CMP, 74595-3, THYR, 71478-5 #### [facility] ([id number]) [address] [place] [address] Chloride [Moles/Vol] 100 mmol/L Normal 98-109 [facility] Comment on above: Performed By: #### C BCA, CMP, 81611-3, THYR, 63350-6 #### [facility] ([id number]) [address] [place] [address] CO2 [Moles/Vol] 30 mmol/L Normal 22-32 [facility] Comment on above: Performed By: #### C BCA, CMP, 07310-7, THYR, 16961-0 #### [facility] ([id number]) [address] [address] [place] [address] Creatinine [Mass/Vol] 0.73 mg/dL Normal 0.40-1.00 [facility] Comment on above: Result Comment: METH OD TRACEABLE TO IDMS STANDARD Performed By: #### C BCA, CMP, 06533-7, THYR, 82269-3 #### [facility] ([id number]) [address] [place] [address] eGFR (CKD-EPI) NON-RACE DEPENDENT >90 Normal >59 [facility] Comment on above: Result Comment: Reported eGFR is based on the CKD-EPI 2020 equation that does not use a race coefficient. Performed By: #### C BCA, CMP, 18788-8, THYR, 46163-3 #### [facility] ([id number]) [address] [address] [place] [address] Glucose [Mass/Vol] 98 mg/dL Normal 65-99 [facility] Comment on above: Performed By: #### C BCA, CMP, 03118-4, THYR, 31801-8 #### [facility] ([id number]) [address] [address] [place] [address] Potassium [Moles/Vol] 4.0 mmol/L Normal 3.5-5.0 [facility] Comment on above: Performed By: #### C BCA, CMP, 00004-3, THYR, 19261-0 #### [facility] ([id number]) [address] [address] [place] [address] Protein [Mass/Vol] 7.2 g/dL Normal 6.0-8.0 [facility] Comment on above: Performed By: #### C BCA, CMP, 80369-6, THYR, 73706-7 #### [facility] ([id number]) [address] [address] [place] [address] Sodium [Moles/Vol] 136 mmol/L Normal 134-146 [facility] Comment on above: Performed By: #### Daisy BCA, CMP, 20213-1, THYR, 97906-6 #### [facility] ([id number]) [address], [address] [place] [address] Urea nitrogen [Mass/Vol] 24 mg/dL Normal 5-27 [facility] Comment on above: Performed By: #### Daisy BCA, CMP, 89266-7, THYR, 32327-5 #### [facility] ([id number]) [address] [place] [address] Lipid 1996 panelon 4 Cholesterol [Mass/Vol] 215 mg/dL High 150-200 [facility] Comment on above: Performed By: #### Daisy BCA, CMP, 99250-5, THYR, 25354-7 #### [facility] ([id number]) [address] [place] [address] Cholesterol in HDL [Mass/Vol] 47 mg/dL Normal >39 [facility] Comment on above: Result Comment: HDL <40 mg/dL - High Risk HDL > or = 40mg/dL- Desirable HDL >60 mg/dL - Negative Risk Performed By: #### Daisy BCA, CMP, 79563-9, THYR, 16967-9 #### [facility] ([id number]) [address] [place] [address] Cholesterol in LDL [Mass/Vol] 141 mg/dL High <130 [facility] Comment on above: Result Comment: LDL <100 mg/dL - Desirable LDL >160 mg/dL - High Risk Performed By: #### C BCA, CMP, 78931-2, THYR, 02528-4 #### [facility] ([id number]) [address] [place] [address] Cholesterol in VLDL [Mass/Vol] 27 mg/dL Normal 0-30 [facility] Comment on above: Performed By: #### C BCA, CMP, 33835-2, THYR, 25497-6 #### [facility] ([id number]) [address] [place] [address] CHOLESTEROL:HDL 4.6 Normal 1.0-5.0 [facility] Comment on above: Performed By: #### C BCA, CMP, 63876-8, THYR, 13338-7 #### [facility] ([id number]) [address] [place] [address] Triglyceride [Mass/Vol] 134 mg/dL Normal 27-150 [facility] Comment on above: Performed By: #### C BCA, CMP, 14218-4, THYR, 65531-0 #### [facility] ([id number]) [address] [place] [address] THYROID PROFILEon 09-04-2023 Free T4 [Mass/Vol] 0.67 ng/dL Normal 0.61-1.60 [facility] Comment on above: Performed By: #### C BCA, CMP, 78235-3, THYR, 15338-4 #### [facility] ([id number]) [address] [address] [place] [address] TSH 0.91 uIU/mL Normal 0.49-4.67 [facility] Comment on above: Performed By: #### C BCA, CMP, 58448-9, THYR, 08467-7 #### [facility] ([id number]) [address] [place] [address] Vitamin D+Metabolites [Mass/ Vol]on 09-04-2023 VITAMIN D 25 HYD TOT 35.0 ng/mL Normal 30-100 [facility] Comment on above: Result Comment: Vitamin D status 25 [place] Vitamin D Deficiency <20 ng/mL Insufficiency 20-29 ng/mL Sufficiency 30-100 ng/mL Toxicity >100 ng/mL NOTE: A pediatric reference range has not been established by the electrician office of this kit. The [employer] recommends a Vitamin D level of = or >20ng/mL in infants and children. Performed By: #### C BCA, CMP, 40283-1, THYR, 73820-2 #### [facility] ([id number]) [address] [facility] [place] [address] MG MAMM LT DIAG FUon 023 MG MAMM LT DIAG FU Patient: SALMA PELAEZ Exam Date: 09/06/2022 : 1960 Gender:F Ordering : DR DREA ROA Admission #: [id number] Family : Order #: [id number] CLICK HERE TO VIEW EXAM RADIOLOGY REPORT [...] colon cancer at age 59. LOCATION: [facility] BREAST COMPOSITION: Heterogeneously dense,which may obscure small [...] M.D. on 09/06/2022 at 14:52 Normal [facility] US BREAST LEFT LIMITEDon US BREAST LEFT LIMITED Patient: SALMA PELAEZ Exam Date: 09/06/2022 : 1960 Gender:F Ordering : DR DREA ROA Admission #: [id number] Family : Order #: [id number] CLICK HERE TO VIEW EXAM RADIOLOGY REPORT [...] colon cancer at age 59. LOCATION: [facility] BREAST COMPOSITION: Heterogeneously dense,which may obscure small [...] M.D. on 09/06/2022 at 14:52 Normal [facility] MG MAMM SCREEN 3D LARY CADon 08-13-2022 MG MAMM SCREEN 3D LARY CAD Patient: SALMA PELAEZ Exam Date: 08/13/2022 : 1960 Gender:F Ordering : DR DREA ROA Admission #: [id number] Family : Order #: [id number] CLICK HERE TO VIEW EXAM RADIOLOGY REPORT [...] colon cancer at age 59. LOCATION: [facility] BREAST COMPOSITION: Heterogeneously dense,which may obscure small [...] Jean M.D. on 08/15/2022 at 08:14 Normal [facility] [place] 06-03-2020 ALT No additional P-5'-P [Catalytic activity/Vol] 16 Int._Unit/L Normal 6-46 [facility] Comment on above: Performed By: #### 2 383037, 9568777, 86346060, 8014109, 5736581, 8331953, [id number] #### [facility] [address] [place] [address] [place] 06-03-2020 AST [Catalytic activity/Vol] 17 Int._Unit/L Normal 5-43 [facility] Comment on above: Performed By: #### 2 885349, 1476250, 58109931, 0623440, 5620763, 1423064, [id number] #### [facility] [address] [place] [address] BMPon 06-03-2020 Anion gap [Moles/Vol] 13 mmol/L Normal 6-16 [facility] Comment on above: Performed By: #### 2 699637, 6881973, 39890805, 3422626, 3059747, 4360810, [id number] #### [facility] [address] [place] [address] Calcium [Mass/Vol] 9.2 mg/dL Normal 8.9-11.1 [facility] Comment on above: Performed By: #### 2 562409, 0910823, 23395641, 0286984, 1210280, 8867842, [id number] #### [facility] [address] [place] [address] Chloride [Moles/Vol] 103 mmol/L Normal 101-111 [facility] Comment on above: Performed By: #### 2 123208, 1434028, 61914052, 5744576, 2198808, 5337171, [id number] #### [facility] [address] [place] [address] CO2 [Moles/Vol] 29 mmol/L Normal 21-31 [facility] Comment on above: Performed By: #### 2 706984, 0187395, 04146514, 2317863, 6071522, 3266434, [id number] #### [facility] [address] [place] [address] Creatinine [Mass/Vol] 0.6 mg/dL Normal 0.5-1.3 [facility] Comment on above: Performed By: #### 2 411261, 3373231, 97055813, 1749631, 8422567, 3573232, [id number] #### [facility] [address] [place] [address] Glucose [Mass/Vol] 88 mg/dL Normal 55-199 [facility] Comment on above: Result Comment: If t his glucose result represents a fasting glucose, interpretation should refer to the following reference range: 55-99 mg/dL Performed By: #### 2 202243, 7763872, 90043593, 2069371, 1581705, 2058655, [id number] #### [facility] [address] [place] [address] Potassium [Moles/Vol] 4.6 mmol/L Normal 3.5-5.3 [facility] Comment on above: Performed By: #### 2 507845, 8619004, 83288954, 5651215, 1049615, 0836822, 188016972 #### [facility] [address] [place] [address] Sodium [Moles/Vol] 140 mmol/L Normal 135-145 [facility] Comment on above: Performed By: #### 2 383556, 8359127, 74587040, 7412857, 8827178, 7015638, 912118524 #### [facility] [address] [place] [address] Urea nitrogen [Mass/Vol] 19 mg/dL Normal 5-21 [facility] Comment on above: Performed By: #### 2 110522, 8724383, 38230432, 5605550, 4519561, 4538005, 902913204 #### [facility] [address] [place] [address] Urea nitrogen/Creatinine [Mass ratio] 32 No Units High 10- [facility] Comment on above: Performed By: #### 2 161026, 7042551, 23613807, 4803803, 8751299, 8053489, 926346056 #### [facility] [address] [place] [address] CBC w/Indiceson 06-03-2020 Erythrocyte distribution width (RBC) [Ratio] 13.5 % Normal 10.9-14.2 [facility] Comment on above: Performed By: #### 2 784557, 1348614, 49616796, 3276254, 7282192, 6807648, 645286277 #### [facility] [address] [place] [address] Hematocrit (Bld) [Volume fraction] 41.7 % Normal 34.0-46.0 [facility] Comment on above: Performed By: #### 2 505130, 4595822, 69409128, 0160833, 1497265, 3146030, 550474439 #### [facility] [address] [place] [address] Hemoglobin (Bld) [Mass/Vol] 14.2 g/dL Normal 12.0-16.0 [facility] Comment on above: Performed By: #### 2 924760, 1602476, 79688470, 7845448, 5177184, 5176874, 737071195 #### [facility] [address] [place] [address] MCH (RBC) [Entitic mass] 30.7 pg Normal 27.0-34.0 [facility] Comment on above: Performed By: #### 2 560450, 3417255, 53642820, 9664757, 2512001, 0965741, 378649065 #### [facility] [address] [place] [address] MCHC (RBC) [Mass/Vol] 34.0 g/dL Normal 31.4-36.0 [facility] Comment on above: Performed By: #### 2 255542, 9126005, 32056343, 0240799, 0844519, 5819701, 742464537 #### [facility] [address] [place] [address] MCV (RBC) [Entitic vol] 90.3 fL Normal 80.0-100.0 [facility] Comment on above: Performed By: #### 2 249956, 0576069, 52660462, 1216517, 2536636, 7887997, 131663675 #### [facility] [address] [place] [address] Platelet mean volume (Bld) [Entitic vol] 8.5 fL Normal 6.4-10.8 [facility] Comment on above: Performed By: #### 2 745088, 6920997, 59888316, 4148236, 7422172, 7516296, 399562426 #### [facility] [address] [place] [address] Platelets (Bld) [#/Vol] 258.0 E9/L Normal 150.0-500.0 [facility] Comment on above: Performed By: #### 2 091367, 3226007, 93428525, 0128820, 9613151, 3008760, 567583273 #### [facility] [address] [place] [address] RBC (Bld) [#/Vol] 4.6 E12/L Normal 4.3-5.9 [facility] Comment on above: Performed By: #### 2 656978, 8259290, 03887022, 9325476, 0798149, 8669323, 310821395 #### [facility] [address] [place] [address] WBC corrected for nucl RBC Auto (Bld) [#/Vol] 8.6 E9/L Normal 4.0-11.0 [facility] Comment on above: Performed By: #### 2 900045, 4090751, 49499822, 4223891, 9628826, 4351475, 750818145 #### [facility] [address] [place] [address] Lipid Panelon 06-03-2020 Cholesterol [Mass/Vol] 172 mg/dL Normal 120-200 [facility] Comment on above: Performed By: #### 2 021160, 1765055, 31305951, 9516004, 7056639, 6041453, 880905595 #### [facility] [address] [place] [address] Cholesterol in HDL [Mass/Vol] 53 mg/dL [facility] Comment on above: Result Comment: HDL > or equal to 60 mg/dL: Low cardiovascular risk HDL < 40 mg/dL : High cardiovascular risk Performed By: #### 2 886169, 8408286, 48709343, 1308941, 5196873, 1121454, 060734978 #### [facility] [address] [place] [address] Cholesterol in LDL [Mass/Vol] 104 mg/dL Normal <=129 [facility] Comment on above: Performed By: #### 2 280832, 1254982, 44438305, 5730573, 2021499, 1803972, 442391917 #### [facility] [address] [place] [address] Cholesterol in VLDL [Mass/Vol] 18 mg/dL Normal 7-40 [facility] Comment on above: Performed By: #### 2 324382, 4067743, 20368171, 5561082, 9718329, 7372916, 253044259 #### [facility] [address] [place] [address] Triglyceride [Mass/Vol] 88 mg/dL Normal <=149 [facility] Comment on above: Performed By: #### 2 232263, 9579474, 99478991, 7793132, 7044777, 6024860, 038590438 #### [facility] [address] [place] [address] Vitamin D 25 Hydroxyon 10-24 -2020 Calcidiol [Mass/Vol] 32.2 ng/mL Normal 30.0-100.0 [facility] Comment on above: Result Comment: Vit lopez D deficiency has been defined as a level of serum 25-OH vitamin D less than 20 ng/mL (1,2) by the [employer] of [employer] and an Endocrine Society practice guideline. The Endocrine Society further defined vitamin D insufficiency as a level between 21 and 29 ng/mL (2). 1. IOM ([employer] of [employer]). 2010. Dietary reference intakes for calcium and D. [place]: The National Academies Press. 2. Cullen MF, Meri NC, Krissy PIERCE, et al. Evaluation, treatment, and prevention of vitamin D deficiency: an Endocrine Society clinical practice guideline. JCEM. 2010; 96 (7):1911-30. Performed By: #### 2 074778, 6122244, 17209158, 3688877, 1669204, 0751791, 775935063 #### [facility] [address] [place] [address] eGFRon 06-03-2020 GFR/1.73 sq M predicted among blacks MDRD (S/P/Bld) [Vol rate/Area] mL/min/{1.73_m2} Normal >=59 [facility] Comment on above: Order Comment: Order added by Discern Expert. Result Comment: eGFR is race adjusted. AA=. Performed By: #### 2 421529, 1538314, 26799389, 3322385, 9617369, 6468995, 715543679 #### [facility] [address] [place] [address] GFR/1.73 sq M predicted among non-blacks MDRD (S/P/Bld) [Vol rate/Area] mL/min/{1.73_m2} Normal >=59 [facility] Comment on above: Order Comment: Order added by Discern Expert. Result Comment: Junior Programmer Analyst anh kidney disease could be indicated at eGFR's of less than 60 mL/min/1.73m2. Kidney failure is indicated at less than 15 mL/min/1.73m2. Performed By: #### 2 528264, 6436275, 84750512, 6974525, 7470267, 7332082, 864237373 #### [facility] [address] [place] [address] Encounters Encounter Date Encounter Type Care Provider Facility Start: 09-29-2023 Orders Only Drea gomez MD Work Phone: [facility] Comment on above: Rheumatoid arthritis , erosive, seronegative ([facility]) Start: 09-11-2023 Refill Drea gomez MD Work Phone: [facility] Start: 09-11-2023 End: 09-12-2023 ambulatory UNKNOWN PROVIDER [facility] Start: 09-04-2023 End: 09-05-2023 ambulatory DREA ROA [facility] Start: 09-04-2023 Encounter for genera l adult medical examination without abnormal findings DREA ROA [facility] Start: 08-22-2023 Refill Drea gomez MD Work Phone: [facility] Start: 08-07-2023 Orders Only Drea gomez MD Work Phone: [facility] Start: 09-06-2022 End: 09-07-[address] DREA ROA Facility:[facility] Start: 08-13-2022 End: 08-14-[address] DREA ROA Facility:[facility] Procedures Date Procedure Procedure Detail Performing Clinician Start: 08-22-2023 Mammography Drea altamirano MD Work Phone: Start: 09-06-2022 Mammography Drea altamirano MD Work Phone: Start: 07-10-2022 Adult depression scr eening assessment Drea Roa MD Work Phone: Plan of Treatment Date Care Activity Detail Author Start: 08-22-2024 Screening for malignant neoplasm of breast Mammogram [facility] Start: 07-11-2024 Adult BMI Screening Adult BMI Screening [facility] Start: 07-11-2024 Tobacco Screening Tobacco Screening [facility] Start: 07-06-2024 End: 07-06-2024 Patient encounter procedure 07/06/2024 8:00 AM EST Office Visit [facility] [address] Drea Roa MD [address] [place], [place] [address] [facility] Start: 09-06-2023 Screening for malignant neoplasm of breast Mammogram [facility] Start: 07-10-2023 Depression Screening Depression Screening [facility] Start: 04-11-2023 COVID-19 Vaccine ( season) COVID-19 Vaccine ( season) [facility] Start: 2009 Administration of varicella zoster vaccine Zoster (Shingles) Vaccine (1 of 2) [facility] Start: 1980 Screening for malignant neoplasm of cervix Pap Smear [facility] Start: 1978 DTaP,Tdap and Td Vaccines (1 - Tdap) DTaP,Tdap and Td Vaccines (1 - Tdap) [facility] Start: 1977 Adult BMI Follow Up Plan Adult BMI Follow Up Plan [facility] Immunizations Immunization Date Immunization Notes Care Provider Fa [facility] 06-08-2022 influenza, injectabl e, quadrivalent, preservative free Drea Roa MD Work Phone: [facility] 09-15-2020 COVID-19, mRNA, LNP- S, PF, 100mcg/0.5mL Dose Drea Roa MD Work Phone: [facility] 08-18-2020 COVID-19, mRNA, LNP- S, PF, 100mcg/0.5mL Dose Drea Roa MD Work Phone: [facility] 05-26-2020 influenza, injectabl e, quadrivalent, preservative free Drea Roa MD Work Phone: [facility] Payers Date Payer Category Payer Unknown [employer] [id number] 2018-Present [phone] [address] [place] [address] [id number] 1959 Unknown [id number] 1959 Unknown [id number] 1959 Unknown [id number] 6 1960 Unknown [id number] 6 1960 Unknown [id number] Social History Date Type Detail Facility Start: 07-11-2022 Tobacco smoking status ORIS Never smoked tobacco [facility] Start: 07-11-2022 Tobacco use and exposure Smokeless tobacco non-user [facility] Start: 07-11-2023 Alcohol intake Current drinker of alcohol (finding) [facility] Start: 07-10-2022 End: 07-10-2023 History of Social function [facility] Start: 07-10-2022 End: 07-10-2023 Social connection and isolation panel [facility] Do you belong to any clubs or organizations such as bahai groups, unions, fraternal or athletic groups, or school groups? No [facility] Are you now , , , , never or living with a partner? [facility] How often to you hav e a drink containing alcohol? Monthly or less [facility] How many standard dr inks containing alcohol do you have on a typical day? 1 or [address] [facility] How often do you hav e 6 or more drinks on 1 occasion? Never [facility] How hard is it for y ou to pay for the very basics like food, housing, medical care, and heating Not hard at all [facility] Do you feel stress - tense, restless, nervous, or anxious, or unable to sleep at night because your mind is troubled all the time - these days [OSQ] Not at all [facility] Start: 06-29-2020 Education [address] [facility] Start: 07-11-2022 Alcohol Comment rarely [facility] Start: 1960 Sex Assigned At Female [facility] Start: 05-30-2021 Gender identity Identifies as female gender (finding) [facility] Start: 05-30-2021 Sexual orientation Heterosexual (finding) [facility] Medical Equipment Procedure Code Equipment Code Equipment Origin al Text Equipment Identifier Dates Bearing Tib [id number] Kn Ant Stab Inlay Vngrd Arcm - [id number] Start: 08-16-2021 Cement Bn Bio 40 gm Rpl [id number] - [id number] Start: 08-16-2021 Component Ptlr T hn 6.2mm 31mm 3 Pg Wr Vngrd Kn Strl Ser A - [id number] Start: 08-16-2021 Goals Date Patient Goal Desired Activity /State Personal health goal Comment on above: Formatting of this n ote might be different from the original. Evaluation of progress towards goal: Maximize work with PT at discharge to strengthen L knee History of Present illness Narrative 09-29-2023 Drea Roa MD - 09/29/2023 8:58 AM EST Note Date & Type Note Facility 09-29-2023 History of Presen t illness Narrative OAARS check for soma refill documented in this encounter [facility] Evaluation note Note Date & Type Note Facility Evaluation note Diagnosis Rheumatoid arthritis, erosive, seronegative (CMS-HCC) documented in this encounter [facility] Instructions Note Date & Type Note Facility Instructions Not on filedocumented in this en counter [facility] Instructions Note Date & Type Note Facility Instructions Not on filedocumented in this en counter [facility] Summary Purpose Family History No Family History Records FoundNo Family History Records FoundNo Family History Records Found Advance Directives Documents on File Type Date Recorded Patient Power Superintendent Expl anation Living Will 08/06/2021 1:39 PM LIVING [place] [employer] Durable Power of Physician Office Rep 08/06/2021 1:39 PM POA Latest Code Status on File Code Status Date Activated Date Inactivated Comments Full Code 08/16/2021 11:50 AM 08/17/2021 11:53 AM Additional Source Comments INFORMATION SOURCE (unrecogn ized section and content) DATE CREATED AUTHOR 06/03/2020 Benji Desouzaus [facility] DATE CREATED AUTHOR AUTHOR'S ORGANIZ ATION 09/11/2022 [facility] DATE CREATED AUTHOR AUTHOR'S ORGANIZ ATION 09/14/2023 [facility] Care Teams (unrecognized sec tion and content) Supervisor Rework Relationship Specialty Start Date End Date Drea Roa MD [address] [place] [address] PCP - General Family Medicine 05/09/22 Supervisor Rework Relationship Specialty Start Date End Date Drea Roa MD [address] [place] [address] PCP - General Family Medicine 05/09/22 Reason [...] BE BASED ON THE PRIMARY CLINICAL RECORDS. [facility] [employer] provides no warranty or guarantee of the accuracy or completeness of information in this document.
--- NOTE | 2023-10-15 07:58 | US_ITS ---
The [address] [address] Patient Name: KEITH PELAEZ MRN: [id number] date: 1960 Sex: F Assigned Patient Location: US Current Patient Location: US Accession/Order Number: [id number] Exam Date: 10/15/2023 08:00 Report Date: 10/15/2023 08:54 At the request of: DREA STEVENS Procedure: US right upper quadrant EXAM: US right upper quadrant HISTORY: Calculus Of Gallbladder K80.20 COMPARISON: None. TECHNIQUE: Grayscale, color and Doppler FINDINGS: The liver is normal in size, contour and echotexture with no focal mass. Hepatopedal flow in the main portal vein with a velocity of 27 cm/s. The gallbladder is normal in appearance. The gallbladder wall measures 1.4 mm per the common bile duct measures 2.3 mm. Negative sonographic Lozano sign. The visualized pancreas is normal The right kidney is normal measuring 10.2 x 6.0 x 5.4 cm. Echogenic foci measuring 4 mm, nonobstructing nephrolith No free fluid US/US right upper quadrant IMPRESSION: No cholelithiasis Electronically authenticated by: DREA LEON Date: 10/15/2023 08:54
== END 2023-10-15 07:53 | disposition home or self-care (01) ==
LOC: US 07:52
PROVIDERS: PCP Family Medicine; Visit Provider Family Medicine
DX: K80.20 Calculus of gallbladder without cholecystitis without obstruction (principal)
CPT/HCPCS: 76705

== ENCOUNTER 2024-03-19 12:44 | Outpatient (OUT) | payer OTHER, SELFPAY ==
--- NOTE | 2024-03-19 12:47 | MM_ITS ---
Patient Name: KEITH PELAEZ MR#: [id number] : 1960 Exam Date: 03/19/2024 Ordering Doctor: DR DREA STEVENS RADIOLOGY REPORT PROCEDURE: MM TOMOSYNTHESIS DIAGNOSTIC BI, 03/19/2024, 12:46 US BREAST BI LIMITED, 03/19/2024, 13:00 COMPARISON: US BREAST BI LIMITED, 09/05/2023. MM TOMOSYNTHESIS SCREENING BI, 08/22/2023. MG MAMM LT DIAG FU, 09/06/2022. MG MAMM SCREEN 3D LARY CAD, 08/13/2022. MAMMO LARY SCREEN, 07/13/2010. INDICATIONS: Abnormal Mammogram Calculator Name NCI Breast Cancer Risk Assessment Tool 5 Year Breast Cancer Risk 2.50% Lifetime Breast Cancer Risk 9.70% Personal Breast Cancer No Personal Ovarian Cancer No Treatments None Family Cancers Grandmother-maternal with colon cancer at age ~60. LOCATION: [facility] BREAST COMPOSITION: The breasts are heterogeneously dense,which may obscure small masses. FINDINGS: DIAGNOSTIC CATEGORY 3--PROBABLY BENIGN FINDING. THE FOLLOWING FINDING(S) HAS A HIGH PROBABILITY OF A BENIGN ETIOLOGY: RIGHT BREAST: Stable partially circumscribed masses and a few benign-appearing scattered calcifications. Ultrasound demonstrates multiple complex but overall benign-appearing cysts/lesions. No appreciable change. Follow-up diagnostic mammography and ultrasound in 6 months. LEFT BREAST: Stable partially circumscribed masses/cysts. Ultrasound demonstrates multiple complex but overall benign-appearing cysts/lesions. No appreciable change. Follow-up diagnostic mammography and ultrasound in 6 months. RECOMMENDATIONS: SHORT TERM FOLLOW-UP DIAGNOSTIC MAMMOGRAM BILATERAL BREASTS IN 6 MONTHS. FOLLOW-UP ULTRASOUND BILATERAL BREASTS IN 12 MONTHS. PLEASE NOTE: A NORMAL MAMMOGRAM DOES NOT EXCLUDE THE POSSIBILITY OF BREAST CANCER. A CLINICALLY SUSPICIOUS PALPABLE LUMP SHOULD BE BIOPSIED. Dictated by: Laz Jean M.D. on 03/19/2024 at 14:27 Approved by: Laz Jean M.D. on 03/19/2024 at 14:43
--- OUTSIDE RECORDS SUMMARY | 2024-03-19 12:47 | XMS_ITS | CCD ---
Author Organization [facility] Inform ion [facility] Care Team Providers Care Assembly Detailer Name Role Phone DEFRANCE, DR SHEPARD Admitting Unavailable DEFRANCE, DR SHEPARD Attending Unavailable ZIEBER, DR LAZ Albrecht Consulting Unavailable DEFRANCE, DR SHEPARD Primary Care Unavailable DEFRANCE, DR SHEPARD Consulting Unavailable DEFRANCE, DR SHEPARD Primary Care Unavailable DEFRANCE, DR SHEPARD Admitting Unavailable DEFRANCE, DR SHEPARD Attending Unavailable ZIEBER, DR LAZ Albrecht Consulting Unavailable DEFRANCE, DR SHEPARD Consulting Unavailable Defrance Drea ALBARRAN Primary Care Provider RODNEY, DREA Macias Referring Unavailable DEFRANCE, DREA Macias Primary Care Unavailable DEFRANCE, DREA Macias Referring Unavailable DEFRANCE, DREA Macias Primary Care Unavailable DEFRANCE, DREA Macias Referring Unavailable DEFRANCE, DREA Macias Primary Care Unavailable AGUSTO BELL Attending Unavailable AGUSTO BELL Referring Unavailable DEFRANCE, DREA Macias Primary Care Unavailable Medications Current Medications Medication Drug Class(es) Dates Sig (Normalized) Sig (Original) atorvastatin 10 mg oral tablet (7 sources) HMG-CoA Reductase Inhibitor Start: 06-26-20 atorvastatin [...] 08/11/2023 Active benzonatate 200 mg oral capsule (7 sources) Non-narcotic Antitussive Start: 08-07-20 23 take 1 capsule by mouth three times daily as needed for cough benzonatate (TESSALON PERLES) 200 mg capsule Take 1 capsule (200 mg total) by mouth 3 (three) times a day as needed for cough. 30 capsule 1 08/07/2023 Active candesartan cilexetil 32 mg oral tablet (7 sources) Angiotensin 2 Receptor Kim Start: 07-11-20 take 1 tablet by mouth in the morning candesartan (ATACAND) 32 mg tablet Take 1 tablet (32 mg total) by mouth in the morning. 90 tablet 3 07/11/2023 Active carisoprodol 350 mg oral tablet (8 sources) Muscle Relaxant Start: 04-24-20 23 End: 09-29-19 24 take 1 tablet by mouth three times daily as needed for muscle spasms carisoprodoL (SOMA) 350 mg tablet Indications: Rheumatoid arthritis, erosive, seronegative (CMS-HCC) Take 1 tablet (350 mg total) by mouth 3 (three) times a day as needed for muscle spasms. 30 tablet 0 09/29/2023 Active celecoxib 200 mg oral capsule (8 sources) Nonsteroidal Anti-inflammatory Drug Start: 07-30-20 End: 11-14-19 24 take 1 capsule by mouth in the morning, then take 1 capsule by mouth at bedtime celecoxib (CeleBREX) 200 mg capsule Take 1 capsule (200 mg total) by mouth in the morning and 1 capsule (200 mg total) before bedtime. 180 capsule 3 11/14/2023 Active diclofenac sodium 0.01 mg/mg topical gel (7 sources) Nonsteroidal Anti-inflammatory Drug Start: 04-10-20 diclofenac sodium (VOLTAREN) 1 % gel Apply 2 g topically in the morning and 2 g at noon and 2 g in the evening and 2 g before bedtime. 100 g 5 04/10/2022 Active esomeprazole 40 mg delayed release oral capsule (7 sources) Proton Pump Inhibitor Start: 07-11-20 take 1 capsule by mouth in the morning esomeprazole (NexIUM) 40 mg capsule Take 1 capsule (40 mg total) by mouth in the morning. 90 capsule 3 07/11/2023 Active estradiol 2 mg oral tablet (8 sources) Estrogen Start: 08-26-19 23 End: 09-11-19 24 estradioL (ESTRACE) 2 mg tablet TAKE 1 TABLET EVERY MORNING 90 tablet 3 09/11/2023 Active fluconazole 100 mg oral tablet (1 source) Azole Antifungal Start: 08-08-20 23 End: 08-22-19 24 take 1 tablet by mouth in the morning fluconazole (DIFLUCAN) 100 mg tablet Take 1 tablet (100 mg total) by mouth in the morning for 14 days. 14 tablet 0 08/08/2023 08/22/2023 Active hydroCHLOROthiazide 25 mg oral tablet (7 sources) Thiazide Diuretic Start: 06-26-20 23 hydroCHLOROthiazide (HYDRODIURIL) 25 mg tablet TAKE 1 TABLET DAILY 90 tablet 3 06/26/2023 Active lidocaine 0.05 mg/mg medicated patch (7 sources) Antiarrhythmic, Amide Local Anesthetic Start: 02-27-20 apply 1 dose transdermal route once daily lidocaine (LIDODERM) 5 % APPLY 1 PATCH DAILY AND REMOVE AND DISCARD WITHIN 12 HOURS DIRECTED 90 patch 1 02/26/2021 Active meclizine hydrochloride 25 mg oral tablet (7 sources) Antiemetic Start: 07-28-20 21 take 1 tablet by mouth three times daily as needed for dizziness meclizine (ANTIVERT) 25 mg tablet Take 1 tablet (25 mg total) by mouth 3 (three) times a day as needed for dizziness. 30 tablet 5 07/28/2021 Active medroxyPROGESTERone acetate 5 mg oral tablet (8 sources) Progestin Start: 08-26-19 End: 09-11-19 24 medroxyPROGESTERone (PROVERA) 5 mg tablet TAKE 1 TABLET EVERY MORNING 90 tablet 3 09/11/2023 Active predniSONE 10 mg oral tablet (9 sources) Start: 11-14-19 24 End: 11-22-19 24 take 6 tablets by mouth once daily, then take 1 tablet by mouth once daily at mealtime predniSONE (STERAPRED DS) 10 mg tablet pack Take by mouth daily for 8 days. 6 tabs qd x 3 d then 1 less each day with food 33 tablet 0 11/14/2023 11/22/2023 Active Start: 08-22-2023 predniSONE (DE LTASONE) 10 mg tablet Takes as needed 90 tablet 3 08/22/2023 Active Start: 09-09-2022 End: 08-22-2023 take 1 tablet by mouth once daily predniSONE (DELTASONE) 10 mg tablet TAKE 1 TABLET BY MOUTH EVERY DAY 90 tablet 3 09/09/2022 08/22/2023 Discontinued Completed/Discontinued Medications Medication Drug Class(es) Dates Sig (Normalized) Sig (Original) meloxicam 15 mg oral tablet (6 sources) Nonsteroidal Anti-inflammatory Drug Start: 11-20-2022 End: 11-14-2023 take 1 tablet by mouth in the morning meloxicam (MOBIC) 15 mg tablet Take 1 tablet (15 mg total) by mouth in the morning. 90 tablet 3 11/20/2022 11/14/2023 Discontinued Problems Active Problems Problem Classification Problem Date Documented Date Episodic/Chronic Anxiety disorders (7 sources) Panic disorder; Translations: [Panic disorder [episodic paroxysmal anxiety]] 08-17-2021 Chronic Esophageal disorders (7 sources) Gastroesophageal reflux disease; Translations: [Gastro-esophageal reflux disease without esophagitis] 08-17-2021 Chronic Nonmalignant breast conditions (1 source) Solitary cyst of left breast; Translations: [SOLITARY CYST OF LEFT BREAST] Onset: 09-10-2022 Episodic Osteoarthritis (20 sources) Osteoarthritis of left knee joint; Translations: [Unilateral primary osteoarthritis, left knee] Onset: 04-16-2018 Resolved: 08-17-2021 08-17-2021 Chronic Other acquired deformities (1 source) Other forms of scoliosis, site unspecified; Translations: [Other forms of scoliosis, site unspecified] Onset: 12-15-2023 Chronic Other connective tissue disease (7 sources) History of total knee arthroplasty; Translations: [Presence of left artificial knee joint] Onset: 07-31-2022 07-31-2022 Chronic Other non-traumatic joint disorders (1 source) Pain in right hip; Translations: [Pain in right hip] Onset: 12-15-2023 Episodic Other screening for suspected conditions (not mental [...] 08-18-2022 Episodic Rheumatoid arthritis and related disease (8 sources) Rheumatoid arthritis; Translations: [Rheumatoid arthritis, unspecified] Onset: 07-01-2020 08-17-2021 Chronic Past or Other Problems Problem Classification Problem Date Documented Date Episodic/Chronic Biliary tract disease (7 sources) Cholelithiasis without obstruction; Translations: [Calculus of gallbladder without cholecystitis without obstruction] Onset: 07-11-2022 07-11-2022 Episodic Calculus of urinary tract (8 sources) Kidney stone; Translations: [Calculus of kidney] Onset: 04-17-2022 08-20-2022 Episodic Genitourinary symptoms and ill-defined conditions (7 sources) Difficulty passing urine; Translations: [Other difficulties with micturition] Onset: 04-17-2022 05-15-2022 Episodic Menopausal disorders (7 sources) Postmenopausal state; Translations: [Hormone replacement therapy] Onset: 08-16-2021 08-17-2021 Episodic Mood disorders (7 sources) Mood disorders Onset: 07-10-2022 07-10-2022 Other diseases of kidney and ureters (7 sources) Cyst of kidney; Translations: [Cyst of kidney, acquired] Onset: 05-15-2022 05-15-2022 Episodic Other non-traumatic joint disorders (7 sources) Pain in left knee; Translations: [Pain in joint, lower leg] Onset: 08-01-2021 08-01-2021 Episodic Results Test Name Value Interpretation Reference Range Facil ity XR SPINE SCOLIOSIS 1 VIEWon 12-17-2023 XR SPINE SCOLIOSIS 1 VIEW XR SPINE SCOLIOSIS 1 VIEW STUDY: XR SPINE SCOLIOSIS 1 VIEW INDICATION: Levoscoliosis; Right hip pain. COMPARISON: None FINDINGS: 24 degrees dextroconvex curvature of the thoracic spine from T1-T12. 44 degrees levoconvex curvature of the lumbar spine from L1-L4. Slight pelvic tilt, with the right iliac crest roughly 1.3 cm above the left. No acute cardiopulmonary process. Mild colonic stool burden. IMPRESSION: Scoliotic changes as described. Finalized by Hipolito Trujillo on 12/17/2023 11:15 AM [facility] XR PELVIS 1 OR 2 VWSon 12-14 XR PELVIS 1 OR 2 VWS XR PELVIS 1 OR 2 VWS XR PELVIS 1 OR 2 VWS: 12/15/2023 5:34 PM CLINICAL INDICATION: Right hip pain COMPARISON: None. TECHNIQUE: AP view of the pelvis FINDINGS: The bony pelvis is intact without evidence of acute fracture or dislocation. SI joints are symmetric. The pubic symphysis is intact. Very left hip joints are aligned without acute abnormality. Degenerative changes of the lower lumbar spine are seen. IMPRESSION: No acute osseous abnormality of the pelvis. Finalized by Patrick Ibanez MD on 12/15/2023 9:32 PM Normal [facility] XR ABDOMEN AP 1 VWon 024 XR [...] Hughes MD on 09/12/2023 10:00 AM Normal [facility] CBC AND AUTO DIFFon 09-04-19 24 ABSOLUTE BASOPHIL 0.0 X10E9/L Normal 0.0-0.2 [facility] [place] Comment on above: Performed By: #### C BCA, CMP, 28930-9, THYR, 76013-8 #### [facility] ([id number]) [address], [address] [place] [address] ABSOLUTE NEUTROPHIL 4.1 X10E9/L Normal 1.5-6.6 [facility] Comment on above: Performed By: #### C BCA, CMP, 40912-3, THYR, 92258-3 #### [facility] ([id number]) [address], [address] [place] [address] Basophils/100 WBC (Bld) 0.4 % Normal [facility] Comment on above: Performed By: #### C BCA, CMP, 31285-3, THYR, 58251-7 #### [facility] ([id number]) [address], [address] [place] [address] Eosinophils (Bld) [#/Vol] 0.2 10*3/uL Normal 0.0-0.4 [facility] Comment on above: Performed By: #### C BCA, CMP, 54925-7, THYR, 47532-7 #### [facility] ([id number]) [address], [address] [place] [address] Eosinophils/100 WBC (Bld) 3.4 % Normal [facility] Comment on above: Performed By: #### C BCA, CMP, 37806-5, THYR, 36880-6 #### [facility] ([id number]) [address], [address] [place] [address] Erythrocyte distribution width (RBC) [Ratio] 13.8 % Normal 11.5-15.0 [facility] Comment on above: Performed By: #### C BCA, CMP, 64867-3, THYR, 72024-8 #### [facility] ([id number]) [address], [address] [place] [address] Hematocrit (Bld) [Volume fraction] 39.0 % Normal 35-47 [facility] Comment on above: Performed By: #### C BCA, CMP, 67115-6, THYR, 22203-3 #### [facility] ([id number]) [address], [address] [place] [address] Hemoglobin (Bld) [Mass/Vol] 12.9 g/dL Normal 11.7-15.5 [facility] Comment on above: Performed By: #### C BCA, CMP, 32431-4, THYR, 98815-6 #### [facility] ([id number]) [address] [place] [address] Lymphocytes (Bld) [#/Vol] 1.9 10*3/uL Normal 1.0-3.5 [facility] Comment on above: Performed By: #### C BCA, CMP, 29905-6, THYR, 45022-0 #### [facility] ([id number]) [address], [facility] [address] [place] [address] Lymphocytes/100 WBC (Bld) 28.0 % Normal [facility] Comment on above: Performed By: #### Daisy BCA, CMP, 06497-6, THYR, 32079-2 #### [facility] ([id number]) [address], [address] [place] [address] MCH (RBC) [Entitic mass] 29.7 pg Normal 27-34 [facility] Comment on above: Performed By: #### C BCA, CMP, 24200-6, THYR, 23541-8 #### [facility] ([id number]) [address] [place] [address] MCHC (RBC) [Mass/Vol] 33.1 g/dL Normal 32-36 [facility] Comment on above: Performed By: #### Daisy BCA, CMP, 53345-6, THYR, 79712-8 #### [facility] ([id number]) [address] [place] [address] MCV (RBC) [Entitic vol] 90 fL Normal 80-100 [facility] Comment on above: Performed By: #### C BCA, CMP, 38223-3, THYR, 57403-7 #### [facility] ([id number]) [address], [address] [place] [address] Monocytes (Bld) [#/Vol] 0.6 10*3/uL Normal 0-0.9 [facility] Comment on above: Performed By: #### C BCA, CMP, 83396-9, THYR, 85172-1 #### [facility] ([id number]) [address], [address] [place] [address] Monocytes/100 WBC (Bld) 8.8 % Normal [facility] Comment on above: Performed By: #### C BCA, CMP, 14609-9, THYR, 71577-1 #### [facility] ([id number]) [address], [address] [place] [address] Neutrophils/100 WBC (Bld) 59.4 % Normal [facility] Comment on above: Performed By: #### C BCA, CMP, 82764-2, THYR, 66948-1 #### [facility] ([id number]) [address], [address] [place] [address] Platelet mean volume (Bld) [Entitic vol] 8.7 fL Normal 7-12 [facility] Comment on above: Performed By: #### C BCA, CMP, 34954-6, THYR, 58899-6 #### [facility] ([id number]) [address], [address] [place] [address] Platelets (Bld) [#/Vol] 248 10*3/uL Normal 150-450 [facility] Comment on above: Performed By: #### C BCA, CMP, 55794-3, THYR, 03761-6 #### [facility] ([id number]) [address], [address] [place] [address] RBC COUNT 4.36 X10E12/L Normal 3.80-5.20 [facility] Comment on above: Performed By: #### C BCA, CMP, 37823-2, THYR, 19052-7 #### [facility] ([id number]) [address], [address] [place] [address] WBC (Bld) [#/Vol] 6.9 10*3/uL Normal 4.0-11.0 [facility] [place] Comment on above: Performed By: #### C BCA, CMP, 32522-0, THYR, 35138-8 #### [facility] ([id number]) [address], [address] [place] [address] COMPREHENSIVE METABOLIC PANE Judah 09-04-2023 Albumin [Mass/Vol] 4.3 g/dL Normal 3.2-5.3 [facility] [place] Comment on above: Performed By: #### C BCA, CMP, 93042-5, THYR, 34592-9 #### [facility] ([id number]) [address], [address] [place] [address] ALP [Catalytic activity/Vol] 51 U/L Normal 39-130 [facility] Comment on above: Performed By: #### C BCA, CMP, 24034-5, THYR, 63364-0 #### [facility] ([id number]) [address], [address] [place] [address] ALT [Catalytic activity/Vol] 13 U/L Normal 0-31 [facility] Comment on above: Performed By: #### C BCA, CMP, 33985-1, THYR, 89412-5 #### [facility] ([id number]) [address], [address] [place] [address] Anion gap [Moles/Vol] 6 mmol/L Normal 5-15 [facility] Comment on above: Performed By: #### C BCA, CMP, 39791-6, THYR, 30454-8 #### [facility] ([id number]) [address], [address] [place] [address] AST [Catalytic activity/Vol] 16 U/L Normal 0-41 [facility] Comment on above: Performed By: #### C BCA, CMP, 78519-9, THYR, 79250-6 #### [facility] ([id number]) [address], [address] [place] [address] Bilirubin [Mass/Vol] 0.4 mg/dL Normal 0.3-1.2 [facility] Comment on above: Performed By: #### C BCA, CMP, 40511-3, THYR, 00044-4 #### [facility] ([id number]) [address], [address] [place] [address] Calcium [Mass/Vol] 9.6 mg/dL Normal 8.5-10.5 [facility] [place] Comment on above: Performed By: #### C BCA, CMP, 33450-5, THYR, 16519-0 #### [facility] ([id number]) [address], [address] [place] [address] Chloride [Moles/Vol] 100 mmol/L Normal 98-109 [facility] Comment on above: Performed By: #### C BCA, CMP, 16816-0, THYR, 18138-4 #### [facility] ([id number]) [address], [address] [place] [address] CO2 [Moles/Vol] 30 mmol/L Normal 22-32 [facility] Comment on above: Performed By: #### C BCA, CMP, 48285-7, THYR, 99979-4 #### [facility] ([id number]) [address], [address] [place] [address] Creatinine [Mass/Vol] 0.73 mg/dL Normal 0.40-1.00 [facility] Comment on above: Result Comment: METH OD TRACEABLE TO IDMS STANDARD Performed By: #### C BCA, CMP, 22585-7, THYR, 51107-9 #### [facility] ([id number]) [address] [place] [address] eGFR (CKD-EPI) NON-RACE DEPENDENT >90 Normal >59 [facility] Comment on above: Result Comment: Reported eGFR is based on the CKD-EPI 2020 equation that does not use a race coefficient. Performed By: #### C BCA, CMP, 48933-7, THYR, 96808-0 #### [facility] ([id number]) [address], [address] [place] [address] Glucose [Mass/Vol] 98 mg/dL Normal 65-99 [facility] [place] Comment on above: Performed By: #### C BCA, CMP, 66982-7, THYR, 63229-7 #### [facility] ([id number]) [address] [address] [place] [address] Potassium [Moles/Vol] 4.0 mmol/L Normal 3.5-5.0 [facility] Comment on above: Performed By: #### C BCA, CMP, 96542-6, THYR, 92380-2 #### [facility] ([id number]) [address] [place] [address] Protein [Mass/Vol] 7.2 g/dL Normal 6.0-8.0 [facility] [place] Comment on above: Performed By: #### C BCA, CMP, 60774-4, THYR, 18603-3 #### [facility] ([id number]) [address] [place] [address] Sodium [Moles/Vol] 136 mmol/L Normal 134-146 [facility] [place] Comment on above: Performed By: #### C BCA, CMP, 31193-2, THYR, 80292-0 #### [facility] ([id number]) [address] [place] [address] Urea nitrogen [Mass/Vol] 24 mg/dL Normal 5-27 [facility] Comment on above: Performed By: #### C BCA, CMP, 79782-5, THYR, 90030-8 #### [facility] ([id number]) [address] [place] [address] Lipid 1996 panelon 4 Cholesterol [Mass/Vol] 215 mg/dL High 150-200 [facility] Comment on above: Performed By: #### Daisy BCA, CMP, 92751-0, THYR, 78745-9 #### [facility] ([id number]) [address], [address] [place] [address] Cholesterol in HDL [Mass/Vol] 47 mg/dL Normal >39 [facility] Comment on above: Result Comment: HDL <40 mg/dL - High Risk HDL > or = 40mg/dL- Desirable HDL >60 mg/dL - Negative Risk Performed By: #### C BCA, CMP, 90774-4, THYR, 93649-1 #### [facility] ([id number]) [address], [address] [place] [address] Cholesterol in LDL [Mass/Vol] 141 mg/dL High <130 [facility] Comment on above: Result Comment: LDL <100 mg/dL - Desirable LDL >160 mg/dL - High Risk Performed By: #### C BCA, CMP, 65340-2, THYR, 50336-3 #### [facility] ([id number]) [address], [address] [place] [address] Cholesterol in VLDL [Mass/Vol] 27 mg/dL Normal 0-30 [facility] Comment on above: Performed By: #### C BCA, CMP, 88498-9, THYR, 43359-4 #### [facility] ([id number]) [address], [address] [place] [address] CHOLESTEROL:HDL 4.6 Normal 1.0-5.0 [facility] Comment on above: Performed By: #### C SILVIANO, CMP, 04603-9, THYR, 57607-5 #### [facility] ([id number]) [address], [address] [place] [address] Triglyceride [Mass/Vol] 134 mg/dL Normal 27-150 [facility] Comment on above: Performed By: #### C BCA, CMP, 26821-6, THYR, 42409-3 #### [facility] ([id number]) [address], [address] [place] [address] THYROID PROFILEon 09-04-2023 Free T4 [Mass/Vol] 0.67 ng/dL Normal 0.61-1.60 [facility] [place] Comment on above: Performed By: #### Daisy SHORE, CMP, 22618-7, THYR, 06829-1 #### [facility] ([id number]) [address] [place] [address] TSH 0.91 uIU/mL Normal 0.49-4.67 [facility] Comment on above: Performed By: #### C SILVIANO, CMP, 17426-5, THYR, 79569-4 #### [facility] ([id number]) [address] [place] [address] Vitamin D+Metabolites [Mass/ Vol]on 09-04-2023 VITAMIN D 25 HYD TOT 35.0 ng/mL Normal 30-100 [facility] Comment on above: Result Comment: Vitamin D status 25 [place] Vitamin D Deficiency <20 ng/mL Insufficiency 20-29 ng/mL Sufficiency 30-100 ng/mL Toxicity >100 ng/mL NOTE: A pediatric reference range has not been established by the wheat [employer] oats flake miller of this kit. The [employer] [employer] recommends a Vitamin D level of = or >20ng/mL in infants and children. Performed By: #### C BCA, [facility], 12427-7, THYR, 82822-1 #### [facility] ([id number]) [address] [place] [address] MG MAMM LT DIAG FUon 023 MG MAMM LT DIAG FU Patient: KEITH PELAEZ Exam Date: 09/06/2022 : 1960 Gender:F Ordering : DR DREA ROA Admission #: [id number] Family : Order #: [id number] CLICK HERE TO VIEW EXAM RADIOLOGY REPORT [...] colon cancer at age 59. LOCATION: [facility] BREAST COMPOSITION: Heterogeneously dense,which may obscure [...] PALPABLE LUMP SHOULD BE BIOPSIED. Dictated by: Lza Jean M.D. on 09/06/2022 at 13:21 Approved by: Laz Jean M.D. on 09/06/2022 at 14:52 Normal [facility] US BREAST LEFT LIMITEDon US BREAST LEFT LIMITED Patient: KEITH PELAEZ Exam Date: 09/06/2022 : 1960 Gender:F Ordering : DR DREA ROA Admission #: [id number] Family : Order #: [id number] CLICK HERE TO VIEW EXAM RADIOLOGY REPORT [...] colon cancer at age 59. LOCATION: [facility] BREAST COMPOSITION: Heterogeneously dense,which may obscure [...] M.D. on 09/06/2022 at 14:52 Normal [facility] MAMM SCREEN 3D LARY CADon 08-13-2022 MG MAMM SCREEN 3D LARY CAD Patient: KEITH PELAEZ Exam Date: 08/13/2022 : 1960 Gender:F Ordering : DR DREA ROA Admission #: [id number] Family : Order #: [id number] CLICK HERE TO VIEW EXAM RADIOLOGY REPORT [...] colon cancer at age 59. LOCATION: [facility] BREAST COMPOSITION: Heterogeneously dense,which may obscure [...] Jean M.D. on 08/15/2022 at 08:14 Normal [facility] 06-03-2020 ALT No additional P-5'-P [Catalytic activity/Vol] 16 Int._Unit/L Normal 6-46 [facility] Comment on above: Performed By: #### 2 [id number], [id number], [id number], [id number], [id number], [id number], [id number] #### [facility] [address] [place] [address] Diane 06-03-2020 AST [Catalytic activity/Vol] 17 Int._Unit/L Normal 5-43 [facility] Comment on above: Performed By: #### 2 199351, 8736996, 70682629, 3901783, 3972211, 0326640, [id number] #### [facility] [address] [place] [address] BMPon 06-03-2020 Anion gap [Moles/Vol] 13 mmol/L Normal 6-16 [facility] Comment on above: Performed By: #### 2 486803, 7136327, 04579695, 0261594, 2820363, 5200452, [id number] #### [facility] [address] [place] [address] Calcium [Mass/Vol] 9.2 mg/dL Normal 8.9-11.1 [facility] Comment on above: Performed By: #### 2 669151, 9259871, 59082192, 5169384, 9537791, 4352560, 959691707 #### [facility] [address] [place] [address] Chloride [Moles/Vol] 103 mmol/L Normal 101-111 [facility] Comment on above: Performed By: #### 2 047939, 6930099, 09408618, 4651651, 4814263, 5943105, 248333130 #### [facility] [address] [place] [address] CO2 [Moles/Vol] 29 mmol/L Normal 21-31 [facility] Comment on above: Performed By: #### 2 362523, 0822052, 56631717, 6838847, 7282461, 2814469, [id number] #### [facility] [address] [place] [address] Creatinine [Mass/Vol] 0.6 mg/dL Normal 0.5-1.3 [facility] Comment on above: Performed By: #### 2 534901, 2917179, 69438269, 0157936, 6038418, 2579229, [id number] #### [facility] [address] [place] [address] Glucose [Mass/Vol] 88 mg/dL Normal 55-199 [facility] Comment on above: Result Comment: If t his glucose result represents a fasting glucose, interpretation should refer to the following reference range: 55-99 mg/dL Performed By: #### 2 894470, 2151321, 79610012, 9598350, 4936630, 3919136, 279517535 #### [facility] [address] [place] [address] Potassium [Moles/Vol] 4.6 mmol/L Normal 3.5-5.3 [facility] Comment on above: Performed By: #### 2 896167, 7524471, 35703194, 5054089, 7796345, 3378808, 157375916 #### [facility] [address] [place] [address] Sodium [Moles/Vol] 140 mmol/L Normal 135-145 [facility] Comment on above: Performed By: #### 2 657244, 5354442, 16567050, 7256852, 2020446, 8040526, 248787896 #### [facility] [address] [place] [address] Urea nitrogen [Mass/Vol] 19 mg/dL Normal 5-21 [facility] Comment on above: Performed By: #### 2 889847, 5839425, 79320159, 5659266, 8319124, 8536415, 036663212 #### [facility] [address] [place] [address] Urea nitrogen/Creatinine [Mass ratio] 32 No Units High 10-20 [facility] Comment on above: Performed By: #### 2 017209, 0017272, 25793835, 6528710, 3319243, 8772813, 379304907 #### [facility] [address] [place] [address] CBC w/Indiceson 06-03-2020 Erythrocyte distribution width (RBC) [Ratio] 13.5 % Normal 10.9-14.2 [facility] Comment on above: Performed By: #### 2 219304, 1791459, 78690426, 2456814, 1124016, 4035147, 408558420 #### [facility] [address] [place] [address] Hematocrit (Bld) [Volume fraction] 41.7 % Normal 34.0-46.0 [facility] Comment on above: Performed By: #### 2 171428, 9608744, 17556093, 7128903, 3288021, 1673675, 552870101 #### [facility] [address] [place] [address] Hemoglobin (Bld) [Mass/Vol] 14.2 g/dL Normal 12.0-16.0 [facility] Comment on above: Performed By: #### 2 095198, 3776779, 46900906, 3664911, 9578281, 9389783, 151179463 #### [facility] [address] [place] [address] MCH (RBC) [Entitic mass] 30.7 pg Normal 27.0-34.0 [facility] Comment on above: Performed By: #### 2 039892, 5617952, 18211716, 7319941, 5283584, 1873001, 811418130 #### [facility] [address] [place] [address] MCHC (RBC) [Mass/Vol] 34.0 g/dL Normal 31.4-36.0 [facility] Comment on above: Performed By: #### 2 886013, 7253382, 55140437, 5174391, 9631592, 9727999, 201770548 #### [facility] [address] [place] [address] MCV (RBC) [Entitic vol] 90.3 fL Normal 80.0-100.0 [facility] Comment on above: Performed By: #### 2 444356, 9446403, 65595716, 9392196, 9331854, 9656305, 918364303 #### [facility] [address] [place] [address] Platelet mean volume (Bld) [Entitic vol] 8.5 fL Normal 6.4-10.8 [facility] Comment on above: Performed By: #### 2 187757, 8360377, 09194804, 7670551, 5423047, 6158484, 573354431 #### [facility] [address] [place] [address] Platelets (Bld) [#/Vol] 258.0 E9/L Normal 150.0-500.0 [facility] Comment on above: Performed By: #### 2 825408, 5410425, 21647894, 2042392, 3087605, 6332758, 745133360 #### [facility] [address] [place] [address] RBC (Bld) [#/Vol] 4.6 E12/L Normal 4.3-5.9 [facility] Comment on above: Performed By: #### 2 468038, 0305258, 52906916, 8672716, 2571417, 7162393, 868586245 #### [facility] [address] [place] [address] WBC corrected for nucl RBC Auto (Bld) [#/Vol] 8.6 E9/L Normal 4.0-11.0 [facility] Comment on above: Performed By: #### 2 321826, 4539880, 51994862, 0130072, 5579553, 8109333, 497543465 #### [facility] [address] [place] [address] Lipid Panelon 06-03-2020 Cholesterol [Mass/Vol] 172 mg/dL Normal 120-200 [facility] Comment on above: Performed By: #### 2 431168, 4278737, 53527181, 9925811, 3405065, 0707546, 018148616 #### [facility] [address] [place] [address] Cholesterol in HDL [Mass/Vol] 53 mg/dL [facility] Comment on above: Result Comment: HDL > or equal to 60 mg/dL: Low cardiovascular risk HDL < 40 mg/dL : High cardiovascular risk Performed By: #### 2 294585, 9215396, 45970222, 9373700, 2122102, 6413182, 845952262 #### [facility] [address] [place] [address] Cholesterol in LDL [Mass/Vol] 104 mg/dL Normal <=129 [facility] Comment on above: Performed By: #### 2 042170, 5857944, 15181627, 9037815, 8727565, 7194567, 760276205 #### [facility] [address] [place] [address] Cholesterol in VLDL [Mass/Vol] 18 mg/dL Normal 7-40 [facility] Comment on above: Performed By: #### 2 443742, 8598629, 62328929, 4565598, 1834893, 9237922, 324229196 #### [facility] [address] [place] [address] Triglyceride [Mass/Vol] 88 mg/dL Normal <=149 [facility] Comment on above: Performed By: #### 2 301590, 0471842, 74114241, 9534161, 4429752, 6775433, 444538154 #### [facility] [address] [place] [address] Vitamin D 25 Hydroxyon 06-03 Calcidiol [Mass/Vol] 32.2 ng/mL Normal 30.0-100.0 [facility] Comment on above: Result Comment: Vit lopez D deficiency has been defined as a level of serum 25-OH vitamin D less than 20 ng/mL (1,2) by the [place] of [employer] and an Endocrine Society practice guideline. The Endocrine Society further defined vitamin D insufficiency as a level between 21 and 29 ng/mL (2). 1. IOM ([place] of [employer]). 2010. Dietary reference intakes for calcium and D. [place]: The National Academies Press. 2. Cullen LONG, Meri NC, Krissy PIERCE, et al. Evaluation, treatment, and prevention of vitamin D deficiency: an Endocrine Society clinical practice guideline. JCEM. 2010; 96 (7):1911-30. Performed By: #### 2 569878, 1275928, 07612686, 5209859, 8051965, 4414348, 531131001 #### [facility] [address] [place] [address] eGFRon 06-03-2020 GFR/1.73 sq M predicted among blacks MDRD (S/P/Bld) [Vol rate/Area] mL/min/{1.73_m2} Normal >=59 [facility] Comment on above: Order Comment: Order added by Discern Expert. Result Comment: eGFR is race adjusted. AA=. Performed By: #### 2 559191, 3593095, 18165372, 2116810, 1437209, 2910256, 930898646 #### [facility] [address] [place] [address] GFR/1.73 sq M predicted among non-blacks MDRD (S/P/Bld) [Vol rate/Area] mL/min/{1.73_m2} Normal >=59 [facility] Comment on above: Order Comment: Order added by Discern Expert. Result Comment: Envelope Maker anh kidney disease could be indicated at eGFR's of less than 60 mL/min/1.73m2. Kidney failure is indicated at less than 15 mL/min/1.73m2. Performed By: #### 2 354493, 2775769, 50896820, 9392737, 5384437, 9127742, 484977582 #### [facility] [address] [place] [address] Encounters Encounter Date Encounter Type Care Provider Facility Start: 12-15-2023 End: 12-16-2023 ambulatory DRAE ROA [facility] Start: 11-14-2023 Orders Only Drea gomez MD Work Phone: [facility] Start: 10-16-2023 Telephone encounter Drea Sam MD Work Phone: [facility] Start: 09-29-2023 Orders Only Drea gomez MD Work Phone: [facility] Comment on above: Rheumatoid arthritis , erosive, seronegative ([facility]) Start: 09-11-2023 Refill Drea gomez MD Work Phone: [facility] Start: 09-11-2023 End: 09-12-2023 ambulatory AGUSTO BELL [facility] Start: 09-04-2023 End: 09-05-2023 ambulatory DREA ROA [facility] Start: 09-04-2023 Encounter for genera l adult medical examination without abnormal findings DREA ROA [facility] Start: 08-22-2023 Refill Drea gomez MD Work Phone: [facility] Start: 08-07-2023 Orders Only Drea gomez MD Work Phone: [facility] Start: 09-06-2022 End: 09-07-[address] DREA [...] Screening for malignant neoplasm of breast Mammogram [facility] Start: 07-11-2024 Adult BMI Screening Adult BMI Screening [facility] Start: 07-11-2024 Tobacco Screening Tobacco Screening [facility] Start: 07-06-2024 End: 07-06-2024 Patient encounter procedure 07/06/2024 8:00 AM EST Office Visit [facility] [address] [address] Drea Roa MD [address] [place], [place] [id number] [facility] Start: 04-11-2024 Influenza vaccination Influenza Vaccine [facility] Start: 09-06-2023 Screening for malignant neoplasm of breast Mammogram [facility] Start: 07-10-2023 Depression Screening Depression Screening [facility] Start: 04-11-2023 COVID-19 Vaccine ( season) COVID-19 Vaccine ( season) [facility] Start: 2009 Administration of varicella zoster vaccine Zoster (Shingles) Vaccine (1 of 2) [facility] Start: 1980 Screening for malignant neoplasm of cervix Pap Smear [facility] Start: 1978 DTaP,Tdap and Td Vaccines (1 - Tdap) DTaP,Tdap and Td Vaccines (1 - Tdap) [facility] Start: 1977 Adult BMI Follow Up Plan Adult BMI Follow Up Plan [facility] Immunizations Immunization Date Immunization Notes Care Provider Fa [facility] 05-28-2023 influenza virus vaccine, unspecified formulation Drea Roa MD Work Phone: [facility] 06-08-2022 influenza, injectabl e, quadrivalent, preservative free Drea Roa MD Work Phone: [facility] 09-15-2020 COVID-19, mRNA, LNP- S, PF, 100mcg/0.5mL Dose Drea Roa MD Work Phone: [facility] 08-18-2020 COVID-19, mRNA, LNP- S, PF, 100mcg/0.5mL Dose Drea Roa MD Work Phone: [facility] 05-26-2020 influenza, injectabl e, quadrivalent, preservative free Drea Roa MD Work Phone: [facility] Payers Date Payer Category Payer Unknown [employer] [id number] 2018-Present [phone] [address] [place] [address] [id number] 1959 Unknown [id number] 1959 Unknown [id number] 1959 Unknown [id number] 6 1959 Unknown [id number] 6 1959 Unknown [id number] 6 1959 Unknown [id number] 6 1960 Unknown [id number] Social History Date Type Detail Facility Start: 07-11-2022 Tobacco smoking status MIIS Never smoked tobacco [facility] Start: 07-11-2022 Tobacco use and exposure Smokeless tobacco non-user [facility] Start: 07-11-2023 Alcohol intake Current drinker of alcohol (finding) [facility] Start: 07-10-2022 End: 07-10-2023 History of Social function [facility] Start: 07-10-2022 End: 07-10-2023 Social connection and isolation panel [facility] Do you belong to any clubs or organizations such as orthodoxy groups, unions, fraternal or athletic groups, or school groups? No [facility] Are you now , , , , never or living with a partner? [facility] How often to you hav e a drink containing alcohol? Monthly or less [facility] How many standard dr inks containing alcohol do you have on a typical day? 1 or 2 [facility] How often do you hav e 6 or more drinks on 1 occasion? Never [facility] How hard is it for y ou to pay for the very basics like food, housing, medical care, and heating Not hard at all [facility] Do you feel stress - tense, restless, nervous, or anxious, or unable to sleep at night because your mind is troubled all the time - these days [OSQ] Not at all [facility] Start: 06-29-2020 Education 15 [facility] Start: 07-11-2022 Alcohol Comment rarely [facility] Start: 1960 Sex Assigned At Female [facility] Start: 05-30-2021 Gender identity Identifies as female gender (finding) [facility] Start: 05-30-2021 Sexual orientation Heterosexual (finding) [facility] Medical Equipment Procedure Code Equipment Code Equipment Origin al Text Equipment Identifier Dates Bearing Tib [id number] Kn Ant Stab Inlay Vngrd Arcm - [id number] Start: 08-16-2021 Cement Bn Bio 40 gm Rpl [id number] - [id number] Start: 08-16-2021 Component Ptlr T hn 6.2mm 31mm 3 Pg Wr Vngrd Kn Strl Ser A - [id number] Start: 08-16-2021 Goals Date Patient Goal Desired Activity /State Personal health goal Comment on above: Formatting of this n ote might be different from the original. Evaluation of progress towards goal: Maximize work with PT at discharge to strengthen L knee Note 10-16-2023 Telephone Encounter - Drea Roa MD - 10/16/2023 8:16 AM EST Note Date & Type Note Facility 10-16-2023 Miscellaneous Notes Formattin g of this note might be different from the original. US wnl's documented in this encounter [facility] Telephone encounter Note 10-16-2023 Telephone Encounter - Drea Roa MD - 10/16/2023 8:16 AM EST Note Date & Type Note Facility 10-16-2023 Telephone encount er Note US wnl's [facility] History of Present illness Narrative 09-29-2023 Drea [...] on filedocumented in this en counter [facility] Instructions Note Date & Type Note Facility Instructions Not on filedocumented in this en counter [facility] Instructions Note Date & Type Note Facility Instructions Not on filedocumented in this en counter [facility] Summary Purpose Family History No Family History Records FoundNo Family History Records FoundNo Family History Records Found Advance Directives No Advanced Directives Records FoundDocuments on File Type Date Recorded Patient Animal Sitter Expl anation Living Will 08/06/2021 1:39 PM LIVING [place] [employer] Durable Power of Business Systems Developer 08/06/2021 1:39 PM POA Latest Code Status on File Code Status Date Activated Date Inactivated Comments Full Code 08/16/2021 11:50 AM 08/17/2021 11:53 AM Additional Source Comments INFORMATION SOURCE (unrecogn ized section and content) DATE CREATED AUTHOR 06/03/2020 Leblanc Yusef [facility] DATE CREATED AUTHOR AUTHOR'S ORGANIZ ATION 09/11/2022 [facility] DATE CREATED AUTHOR AUTHOR'S ORGANIZ ATION 12/19/2023 [facility] Care Teams (unrecognized sec tion and content) Assembly Detailer Relationship Specialty Start Date End Date Drea Roa MD [address] [address] PCP - General Family Medicine 05/09/22 Assembly Detailer Relationship Specialty Start Date End Date Drea Roa MD [address] [place] [address] PCP - General Family Medicine 05/09/22 Assembly Detailer Relationship Specialty Start Date End Date Drea Roa MD [address] [address] PCP - General Family Medicine 05/09/22 Reason [...] BE BASED ON THE PRIMARY CLINICAL RECORDS. [facility]. provides no warranty or guarantee of the accuracy or completeness of information in this document.
== END 2024-03-19 12:45 | disposition home or self-care (01) ==
LOC: MAMMO 12:44
PROVIDERS: PCP Family Medicine; Visit Provider Family Medicine
DX: R92.8 Other abnormal and inconclusive findings on diagnostic imaging of breast (principal); Z80.0 Family history of malignant neoplasm of digestive organs
CPT/HCPCS: 76642; 77066; G0279

== ENCOUNTER 2024-10-08 07:57 | Outpatient (OUT) | payer MEDICARE, SELFPAY ==
--- OUTSIDE RECORDS SUMMARY | 2024-10-08 08:19 | XMS_ITS | CCD ---
Author Organization [facility] Care Team Providers Care Ship'S Officer Name Role Phone DEFRANCE, DR SHEPARD Admitting Unavailable DEFRANCE, DR SHEPARD Attending Unavailable ZIEBER, DR LAZ Albrecht Consulting Unavailable DEFRANCE, DR SHEPARD Primary Care Unavailable DEFRANCE, DR SHEPARD Consulting Unavailable DEFRANCE, DR SHEPARD Primary Care Unavailable DEFRANCE, DR SHEPARD Admitting Unavailable DEFRANCE, DR SHEPARD Attending Unavailable ZIEBER, DR LAZ Albrecht Consulting Unavailable DEFRANCE, DR SHEPARD Consulting Unavailable DEFRANCE, DREA Macias Attending Unavailable DEFRANCE, DREA Macias Referring Unavailable DEFRANCE, DREA Macias Primary Care Unavailable DEFRANCE, DREA Macias Referring Unavailable DEFRANCE, DREA Macias Primary Care Unavailable DEFRANCE, DREA Macias Referring Unavailable DEFRANCE, DREA Macias Primary Care Unavailable DEFRANCE, DREA Macias Referring Unavailable DEFRANCE, DREA Macias Primary Care Unavailable ARABELLA, AGUSTO Coon Attending Unavailable ARABELLA, AGUSTO Coon Referring Unavailable DEFRANCE, DREA Macias Primary Care Unavailable DEFRANCE, DREA Macias Referring Unavailable DEFRANCE, DREA Macias Primary Care Unavailable DEFRANCE, DREA Macias Referring Unavailable DEFRANCE, DREA Macias Primary Care Unavailable Defrance Drea ALBARRAN Primary Care Provider Medications Current Medications Medication Drug Class(es) Dates Sig (Normalized) Sig (Original) atorvastatin 10 mg oral tablet (17 sources) HMG-CoA Reductase Inhibitor Start: 07-14-2024 take 1 tablet by mouth in the morning atorvastatin (LIPITOR) 10 mg tablet Take 1 tablet (10 mg total) by mouth in the morning. 90 tablet 3 07/14/2024 Active Start: 06-26-2023 End: 07-14-2024 take 1 tablet by mouth in the morning atorvastatin (LIPITOR) 10 mg tablet Take 1 tablet (10 mg total) by mouth in the morning. 90 tablet 3 07/14/2024 Active azithromycin 250 mg oral tablet (3 sources) Macrolide Antimicrobial Start: 07-06-2024 End: 07-11-2024 azithromycin (ZITHROMAX) 250 mg tablet Take 2 tablets the first day, then 1 tablet daily for 4 days. 6 tablet 07/06/2024 07/11/2024 Active Start: 08-07-2023 End: 08-11-2023 azithromycin (ZITHROMAX) 250 mg tablet Take 2 tablets the first day, then 1 tablet daily for 4 days. 6 tablet 0 08/07/2023 08/11/2023 Active benzonatate 200 mg oral capsule (14 sources) Non-narcotic Antitussive Start: 03-17-2024 End: 07-14-2024 take 1 capsule by mouth three times daily as needed for cough benzonatate (TESSALON PERLES) 200 mg capsule Take 1 capsule (200 mg total) by mouth 3 (three) times a day as needed for cough. 30 capsule 1 03/17/2024 07/14/2024 Discontinued (Alternate therapy) Start: 08-07-2023 take 1 capsule by [facility] three times daily as needed for cough benzonatate (TESSALON PERLES) 200 mg capsule Take 1 capsule (200 mg total) by mouth 3 (three) times a day as needed for cough. 30 capsule 1 08/07/2023 Active candesartan cilexetil 32 mg oral tablet (17 sources) Angiotensin 2 Receptor Kim Start: 07-14-2024 take 1 tablet by mouth in the morning candesartan (ATACAND) 32 mg tablet Take 1 tablet (32 mg total) by mouth in the morning. 90 tablet 3 07/14/2024 Active Start: 07-11-2023 End: 07-14-2024 take 1 tablet by mouth in the morning candesartan (ATACAND) 32 mg tablet Take 1 tablet (32 mg total) by mouth in the morning. 90 tablet 3 07/14/2024 Active carisoprodol 350 mg oral tablet (17 sources) Muscle Relaxant Start: 10-07-2024 take 1 tablet by mouth three times daily as needed for muscle spasms carisoprodoL (SOMA) 350 mg tablet Indications: Levoscoliosis Take 1 tablet (350 mg total) by mouth 3 (three) times a day as needed for muscle spasms. 60 tablet 10/07/2024 Active Start: 10-05-2024 End: 10-07-2024 take 1 tablet by mouth three times daily as needed for muscle spasms carisoprodoL (SOMA) 350 mg tablet Indications: Levoscoliosis Take 1 tablet (350 mg total) by mouth 3 (three) times a day as needed for muscle spasms. 60 tablet 10/05/2024 10/07/2024 Discontinued (Reorder) Start: 08-06-2024 take 1 tablet by frankie th three times daily as needed for muscle spasms carisoprodoL (SOMA) 350 mg tablet Indications: Levoscoliosis Take 1 tablet (350 mg total) by mouth 3 (three) times a day as needed for muscle spasms. 60 tablet 08/06/2024 Active Start: 02-27-2024 End: 05-20-2024 take 1 tablet by mouth three times daily as needed for muscle spasms carisoprodoL (SOMA) 350 mg tablet Indications: Rheumatoid arthritis, erosive, seronegative (CMS-HCC) Take 1 tablet (350 mg total) by mouth 3 (three) times a day as needed for muscle spasms for up to 20 days. 60 tablet 04/30/2024 05/20/2024 Active Start: 04-24-2023 End: 09-29-2023 take 1 tablet by mouth three times daily as needed for muscle spasms carisoprodoL (SOMA) 350 mg tablet Indications: Rheumatoid arthritis, erosive, seronegative (CMS-HCC) Take 1 tablet (350 mg total) by mouth 3 (three) times a day as needed for muscle spasms. 30 tablet 0 09/29/2023 Active celecoxib 200 mg oral capsule (18 sources) Nonsteroidal Anti-inflammatory Drug Start: 07-14-2024 take 1 capsule by mouth in the morning, then take 1 capsule by mouth at bedtime celecoxib (CeleBREX) 200 mg capsule Take 1 capsule (200 mg total) by mouth in the morning and 1 capsule (200 mg total) before bedtime. 180 capsule 3 07/14/2024 Active Start: 07-30-2022 End: 07-14-2024 take 1 capsule by mouth in the morning, then take 1 capsule by mouth at bedtime celecoxib (CeleBREX) 200 mg capsule Take 1 capsule (200 mg total) by mouth in the morning and 1 capsule (200 mg total) before bedtime. 180 capsule 3 07/14/2024 Active 12 hr chlorpheniramine polistirex 1.6 mg/ml / HYDROcodone polistirex 2 mg/ml extended release suspension (2 sources) Histamine-1 Receptor Antagonist, Opioid Agonist Start: 07-07-2024 End: 07-14-2024 chlorpheniramine-HYDROcodone (TUSSIONEX PENNKINETIC) 8-10 mg/5 mL ER suspension Indications: Acute cough Take 5 mL by mouth every 12 (twelve) hours as needed for cough. Max Daily Amount: 10 mL 115 mL 07/07/2024 07/14/2024 Discontinued (Alternate therapy) clotrimazole 10 mg oral lozenge (7 sources) Azole Antifungal Start: 04-29-2024 End: 10-21-2024 take 1 tablet by mouth three times daily clotrimazole (MYCELEX) 10 mg brian DISSOLVE 1 TABLET (10 MG TOTAL) IN THE MOUTH 3 (THREE) TIMES A DAY 140 tablet 3 09/06/2024 10/21/2024 Active Start: 01-29-2024 End: 03-09-2024 take 1 tablet by mouth three times daily clotrimazole (MYCELEX) 10 mg brian Dissolve 1 tablet (10 mg total) in the mouth 3 (three) times a day for 40 days. 30 tablet 3 01/29/2024 03/09/2024 Active diclofenac sodium 0.01 mg/mg topical gel (16 sources) Nonsteroidal Anti-inflammatory Drug Start: 08-06-2024 diclofenac sodium (VOLTAREN) 1 % gel Apply 2 g topically in the morning and 2 g at noon and 2 g in the evening and 2 g before bedtime. 100 g 5 08/06/2024 Active Start: 04-10-2022 diclofenac sod ium (VOLTAREN) 1 % gel Apply 2 g topically in the morning and 2 g at noon and 2 g in the evening and 2 g before bedtime. 100 g 5 04/10/2022 Active esomeprazole 40 mg delayed release oral capsule (16 sources) Proton Pump Inhibitor Start: 07-28-2024 take 1 capsule by mouth once daily in the morning esomeprazole (NexIUM) 40 mg capsule TAKE 1 CAPSULE BY MOUTH EVERY DAY IN THE MORNING 90 capsule 3 07/28/2024 Active Start: 07-11-2023 End: 07-14-2024 take 1 capsule by mouth in the morning esomeprazole (NexIUM) 40 mg capsule Take 1 capsule (40 mg total) by mouth in the morning. 90 capsule 3 07/11/2023 07/14/2024 Discontinued (Alternate therapy) estradiol 2 mg oral tablet (18 sources) Estrogen Start: 07-14-2024 take 1 tablet by mouth in the morning estradioL (ESTRACE) 2 mg tablet Take 1 tablet (2 mg total) by mouth in the morning. 90 tablet 3 07/14/2024 Active Start: 08-26-2022 End: 07-14-2024 take 1 tablet by mouth in the morning estradioL (ESTRACE) 2 mg tablet Take 1 tablet (2 mg total) by mouth in the morning. 90 tablet 3 07/14/2024 Active fluconazole 100 mg oral tablet (1 source) Azole Antifungal Start: 08-08-2023 End: 08-22-2023 take 1 tablet by mouth in the morning fluconazole (DIFLUCAN) 100 mg tablet Take 1 tablet (100 mg total) by mouth in the morning for 14 days. 14 tablet 0 08/08/2023 08/22/2023 Active hydroCHLOROthiazide 25 mg oral tablet (17 sources) Thiazide Diuretic Start: 07-14-2024 take 1 tablet by mouth once daily hydroCHLOROthiazide (HYDRODIURIL) 25 mg tablet Take 1 tablet (25 mg total) by mouth daily. 90 tablet 3 07/14/2024 Active Start: 06-26-2023 End: 07-14-2024 take 1 tablet by mouth once daily hydroCHLOROthiazide (HYDRODIURIL) 25 mg tablet Take 1 tablet (25 mg total) by mouth daily. 90 tablet 3 07/14/2024 Active lidocaine 0.05 mg/mg medicated patch (16 sources) Antiarrhythmic, Amide Local Anesthetic Start: 08-06-2024 apply 1 dose transdermal route once daily, then apply 1 dose transdermal route every twelve hours lidocaine (LIDODERM) 5 % Place 1 patch on the skin daily. Remove & Discard patch within 12 hours or as directed by 90 patch 3 08/06/2024 Active Start: 02-26-2021 apply 1 dose transde rmal route once daily lidocaine (LIDODERM) 5 % APPLY 1 PATCH DAILY AND REMOVE AND DISCARD WITHIN 12 HOURS DIRECTED 90 patch 1 02/26/2021 Active meclizine hydrochloride 25 mg oral tablet (16 sources) Antiemetic Start: 08-06-2024 take 1 tablet by mouth three times daily as needed for dizziness meclizine (ANTIVERT) 25 mg tablet Take 1 tablet (25 mg total) by mouth 3 (three) times a day as needed for dizziness. 270 tablet 08/06/2024 Active Start: 07-28-2021 take 1 tablet by frankie th three times daily as needed for dizziness meclizine (ANTIVERT) 25 mg tablet Take 1 tablet (25 mg total) by mouth 3 (three) times a day as needed for dizziness. 30 tablet 5 07/28/2021 Active medroxyPROGESTERone acetate 5 mg oral tablet (18 sources) Progestin Start: 07-14-2024 take 1 tablet by mouth in the morning medroxyPROGESTERone (PROVERA) 5 mg tablet Take 1 tablet (5 mg total) by mouth in the morning. 90 tablet 3 07/14/2024 Active Start: 08-26-2022 End: 07-14-2024 take 1 tablet by mouth in the morning medroxyPROGESTERone (PROVERA) 5 mg tablet Take 1 tablet (5 mg total) by mouth in the morning. 90 tablet 3 07/14/2024 Active meloxicam 7.5 mg oral tablet (9 sources) Nonsteroidal Anti-inflammatory Drug Start: 08-06-2024 take 2 tablets by mouth in the morning meloxicam (MOBIC) 7.5 mg tablet Take 2 tablets (15 mg total) by mouth in the morning. 90 tablet 3 08/06/2024 Active Start: 11-20-2022 End: 11-14-2023 take 1 tablet by mouth in the morning meloxicam (MOBIC) 15 mg tablet Take 1 tablet (15 mg total) by mouth in the morning. 90 tablet 3 11/20/2022 11/14/2023 Discontinued meloxicam (MOBIC ) 7.5 mg tablet Active pantoprazole 40 mg delayed release oral tablet (1 source) Proton Pump Inhibitor Start: 07-14-2024 take 1 tablet by mouth in the morning, then take 1 tablet by mouth at bedtime pantoprazole (PROTONIX) 40 mg EC tablet Take 1 tablet (40 mg total) by mouth in the morning and 1 tablet (40 mg total) before bedtime. 180 tablet 3 07/14/2024 Active Start: 07-14-2024 take 1 tablet by frankie th in the morning, then take 1 tablet by mouth at bedtime pantoprazole (PROTONIX) 40 mg EC tablet Take 1 tablet (40 mg total) by mouth in the morning and 1 tablet (40 mg total) before bedtime. 180 tablet 3 07/14/2024 Active predniSONE 10 mg oral tablet (20 sources) Start: 10-05-2024 End: 10-13-2024 take 6 tablets by mouth once daily, then take 1 tablet by mouth once daily at mealtime predniSONE (STERAPRED DS) 10 mg tablet pack Take by mouth daily for 8 days. 6 tabs qd x 3 d then 1 less each day with food 33 tablet 10/05/2024 10/13/2024 Active Start: 03-05-2024 predniSONE (DE LTASONE) 10 mg tablet TAKE 6 TABS DAILY X 3 DAYS THEN 1 LESS EACH DAY WITH FOOD 33 tablet 03/05/2024 Active Start: 11-14-2023 End: 11-22-2023 take 6 tablets by mouth once daily, [...] tablet 3 08/22/2023 Active Start: 09-09-2022 End: 07-14-2024 take 1 tablet by mouth in the morning predniSONE (DELTASONE) 10 mg tablet Take 1 tablet (10 mg total) by mouth in the morning. 90 tablet 3 07/14/2024 Active Problems Active Problems Problem Classification Problem Date Documented Date Episodic/Chronic Anxiety disorders (16 sources) Panic disorder; Translations: [Panic disorder [episodic paroxysmal anxiety]] 08-17-2021 Chronic Esophageal disorders (16 sources) Gastroesophageal reflux disease; Translations: [Gastro-esophageal reflux disease without esophagitis] 08-17-2021 Chronic Nonmalignant breast conditions (1 source) Solitary cyst of left breast; Translations: [SOLITARY CYST OF LEFT BREAST] Onset: 09-10-2022 Episodic Osteoarthritis (20 sources) Osteoarthritis of left knee joint; Translations: [Unilateral primary osteoarthritis, left knee] Onset: 04-16-2018 Resolved: 08-17-2021 08-17-2021 Chronic Other acquired deformities (2 sources) Other forms of scoliosis, site unspecified; Translations: [Other forms of scoliosis, site unspecified] Onset: 12-15-2023 Chronic Other acquired deformities (2 sources) Levoscoliosis; Translations: [Other forms of scoliosis, site unspecified] 07-14-2024 Chronic Other connective tissue disease (16 sources) History of total knee arthroplasty; Translations: [Presence of left artificial knee joint] Onset: 07-31-2022 07-31-2022 Chronic Other connective tissue disease (1 source) Trigger finger, unspecified finger; Translations: [Trigger finger, unspecified finger] Onset: 07-14-2024 Episodic Other connective tissue disease (2 sources) Trigger finger of left hand; Translations: [Trigger finger, unspecified finger] 07-14-2024 Episodic Other lower respiratory disease (1 source) Cough; Translations: [Acute cough] 07-07-2024 Episodic Other screening for suspected conditions (not mental disorders or infectious disease) (12 sources) Other abnormal and inconclusive findings on diagnostic imaging of breast; Translations: [Encounter for screening mammogram for malignant neoplasm of breast] Onset: 08-13-2022 Episodic Residual codes; unclassified (1 source) Family history of malignant neoplasm of digestive organs; Translations: [FAM HX MALIG NEOPLASM DIGESTIV ORGN] Onset: 08-18-2022 Episodic Rheumatoid arthritis and related disease (18 sources) Rheumatoid arthritis; Translations: [Rheumatoid arthritis, unspecified] Onset: 07-01-2020 08-17-2021 Chronic Unclassified (1 source) Annual Exam Onset: 07-14-2024 Past or Other Problems Problem Classification Problem Date Documented Date Episodic/Chronic Biliary tract disease (16 sources) Cholelithiasis without obstruction; Translations: [Calculus of gallbladder without cholecystitis without obstruction] Onset: 07-11-2022 07-11-2022 Episodic Calculus of urinary tract (17 sources) Calculus of kidney; Translations: [Kidney stone] Onset: 04-17-2022 08-20-2022 Episodic Genitourinary symptoms and ill-defined conditions (16 sources) Difficulty passing urine; Translations: [Other difficulties with micturition] Onset: 04-17-2022 05-15-2022 Episodic Menopausal disorders (16 sources) Postmenopausal state; Translations: [Hormone replacement therapy] Onset: 08-16-2021 08-17-2021 Episodic Mood disorders (16 sources) Mood disorders Onset: 07-10-2022 Resolved: 07-14-2024 07-14-2024 Other diseases of kidney and ureters (16 sources) Cyst of kidney; Translations: [Cyst of kidney, acquired] Onset: 05-15-2022 05-15-2022 Episodic Other non-traumatic joint disorders (1 source) Pain in right hip; Translations: [Pain in right hip] Onset: 12-15-2023 Episodic Other non-traumatic joint disorders (16 sources) Pain in left knee; Translations: [Pain in joint, lower leg] Onset: 08-01-2021 08-01-2021 Episodic Results Test Name Value Interpretation Reference Range Facil ity CBC AND AUTO DIFFon 07-26-20 ABSOLUTE BASOPHIL 0.1 X10E9/L Normal 0.0-0.2 [facility] Comment on above: Performed By: #### C BCA, CMP, 52381-9, THYR, 30992-0 #### [facility] ([id number]) [address], [address] [place] [address] ABSOLUTE NEUTROPHIL 4.3 X10E9/L Normal 1.5-6.6 [facility] Comment on above: Performed By: #### C BCA, CMP, 02715-7, THYR, 27476-5 #### [facility] ([id number]) [address], [address] [place] [address] Basophils/100 WBC (Bld) 0.7 % Normal [facility] Comment on above: Performed By: #### C BCA, CMP, 05148-1, THYR, 00290-1 #### [facility] ([id number]) [address], [address] [place] [address] Eosinophils (Bld) [#/Vol] 0.2 10*3/uL Normal 0.0-0.4 [facility] Comment on above: Performed By: #### C BCA, CMP, 17226-3, THYR, 66296-0 #### [facility] ([id number]) [address] [place] [address] Eosinophils/100 WBC (Bld) 2.5 % Normal [facility] Comment on above: Performed By: #### C BCA, CMP, 22951-6, THYR, 27695-6 #### [facility] ([id number]) [address] [place] [address] Erythrocyte distribution width (RBC) [Ratio] 13.6 % Normal 11.5-15.0 [facility] Comment on above: Performed By: #### C BCA, CMP, 39050-9, THYR, 16210-6 #### [facility] ([id number]) [address] [place] [address] Hematocrit (Bld) [Volume fraction] 39.8 % Normal 35-47 [facility] Comment on above: Performed By: #### C BCA, CMP, 11544-7, THYR, 78608-1 #### [facility] ([id number]) [address] [place] [address] Hemoglobin (Bld) [Mass/Vol] 13.2 g/dL Normal 11.7-15.5 [facility] Comment on above: Performed By: #### C BCA, CMP, 81621-6, THYR, 27967-0 #### [facility] ([id number]) [address] [place] [address] Lymphocytes (Bld) [#/Vol] 1.8 10*3/uL Normal 1.0-3.5 [facility] Comment on above: Performed By: #### C BCA, CMP, 64485-3, THYR, 02524-8 #### [facility] ([id number]) [address] [address] [place] [address] Lymphocytes/100 WBC (Bld) 26.2 % Normal [facility] Comment on above: Performed By: #### C BCA, CMP, 05800-5, THYR, 89462-3 #### [facility] ([id number]) [address], [address] [place] [address] MCH (RBC) [Entitic mass] 30.2 pg Normal 27-34 [facility] Comment on above: Performed By: #### C BCA, CMP, 87401-7, THYR, 34360-2 #### [facility] ([id number]) [address], [address] [place] [address] MCHC (RBC) [Mass/Vol] 33.1 g/dL Normal 32-36 [facility] Comment on above: Performed By: #### C BCA, CMP, 78156-9, THYR, 57924-7 #### [facility] ([id number]) [address], [address] [place] [address] MCV (RBC) [Entitic vol] 91 fL Normal 80-100 [facility] Comment on above: Performed By: #### C BCA, CMP, 25277-0, THYR, 06408-7 #### [facility] ([id number]) [address], [address] [place] [address] Monocytes (Bld) [#/Vol] 0.6 10*3/uL Normal 0-0.9 [facility] Comment on above: Performed By: #### C BCA, CMP, 61655-8, THYR, 12201-8 #### [facility] ([id number]) [address], [address] [place] [address] Monocytes/100 WBC (Bld) 9.0 % Normal [facility] Comment on above: Performed By: #### C BCA, CMP, 78145-2, THYR, 21778-8 #### [facility] ([id number]) [address], [address] [place] [address] Neutrophils/100 WBC (Bld) 61.6 % Normal [facility] Comment on above: Performed By: #### C BCA, CMP, 77426-7, THYR, 36596-3 #### [facility] ([id number]) [address], [address] [place] [address] Platelet mean volume (Bld) [Entitic vol] 9.1 fL Normal 7-12 [facility] Comment on above: Performed By: #### C BCA, CMP, 96098-3, THYR, 62867-8 #### [facility] ([id number]) [address], [address] [place] [address] Platelets (Bld) [#/Vol] 245 10*3/uL Normal 150-450 [facility] Comment on above: Performed By: #### C BCA, CMP, 95578-5, THYR, 59034-6 #### [facility] ([id number]) [address] [facility] [place] [address] RBC COUNT 4.36 X10E12/L Normal 3.80-5.20 [facility] Comment on above: Performed By: #### C BCA, CMP, 59189-0, THYR, 99839-0 #### [facility] ([id number]) [address] [facility] [place] [address] WBC (Bld) [#/Vol] 6.9 10*3/uL Normal 4.0-11.0 [facility] Comment on above: Performed By: #### C BCA, CMP, 69286-1, THYR, 33971-8 #### [facility] ([id number]) [address], [address] [place] [address] COMPREHENSIVE METABOLIC PANE Judah 07-26-2024 Albumin [Mass/Vol] 4.2 g/dL Normal 3.2-5.3 [facility] Comment on above: Performed By: #### C PHYLLIS, 76807-1, CBCA #### [facility] ([id number]) [address], [address] [place] [address] ALP [Catalytic activity/Vol] 49 U/L Normal 39-130 [facility] Comment on above: Performed By: #### C PHYLLIS, 02258-4, CBCA #### [facility] ([id number]) [address], [address] [place] [address] ALT [Catalytic activity/Vol] 10 U/L Normal 0-31 [facility] Comment on above: Performed By: #### Daisy FERGUSON, 70546-1, CBCA #### [facility] ([id number]) [address], [address] [place] [address] Anion gap [Moles/Vol] 9 mmol/L Normal 5-15 [facility] Comment on above: Performed By: #### Daisy FERGUSON, 77150-6, CBCA #### [facility] ([id number]) [address], [address] [place] [address] AST [Catalytic activity/Vol] 16 U/L Normal 0-41 [facility] Comment on above: Performed By: #### Daisy FERGUSON, 67015-0, CBCA #### [facility] ([id number]) [address], [address] [place] [address] Bilirubin [Mass/Vol] 0.4 mg/dL Normal 0.3-1.2 [facility] Comment on above: Performed By: #### Daisy FERGUSON, 33835-2, CBCA #### [facility] ([id number]) [address], [address] [place] [address] Calcium [Mass/Vol] 9.1 mg/dL Normal 8.5-10.5 [facility] Comment on above: Performed By: #### Daisy FERGUSON 35015-0, CBCA #### [facility] ([id number]) [address], [address] [place] [address] Chloride [Moles/Vol] 104 mmol/L Normal 98-109 [facility] Comment on above: Performed By: #### Daisy FERGUSON, 02953-0, CBCA #### [facility] ([id number]) [address], [address] [place] [address] CO2 [Moles/Vol] 26 mmol/L Normal 22-32 [facility] Comment on above: Performed By: #### Daisy FERGUSON 31854-1, CBCA #### [facility] ([id number]) [address], [address] [place] [address] Creatinine [Mass/Vol] 0.72 mg/dL Normal 0.40-1.00 [facility] Comment on above: Result Comment: METH OD TRACEABLE TO IDMS STANDARD Performed By: #### Daisy FERGUSON 11455-0, CBCA #### [facility] ([id number]) [address] [place] [address] eGFR (CKD-EPI) NON-RACE DEPENDENT >90 Normal >59 [facility] Comment on above: Result Comment: Reported eGFR is based on the CKD-EPI 1 equation that does not use a race coefficient. Performed By: #### Daisy FERGUSON 97243-5, CBCA #### [facility] ([id number]) [address], [address] [place] [address] Glucose [Mass/Vol] 85 mg/dL Normal 65-99 [facility] Comment on above: Performed By: #### Daisy FERGUSON 99001-2, CBCA #### [facility] ([id number]) [address] [place] [address] Potassium [Moles/Vol] 4.2 mmol/L Normal 3.5-5.0 [facility] Comment on above: Performed By: #### Daisy FERGUSON 47486-8, CBCA #### [facility] ([id number]) [address], [address] [place] [address] Protein [Mass/Vol] 7.0 g/dL Normal 6.0-8.0 [facility] Comment on above: Performed By: #### Daisy FERGUSON, 55507-6, CBCA #### [facility] ([id number]) [address], [address] [place] [address] Sodium [Moles/Vol] 139 mmol/L Normal 134-146 [facility] Comment on above: Performed By: #### Daisy FERGUSON, 53434-2, CBCA #### [facility] ([id number]) [address], [facility] [address] [place] [address] Urea nitrogen [Mass/Vol] 14 mg/dL Normal 5-27 [facility] Comment on above: Performed By: #### Daisy FERGUSON, 47504-8, CBCA #### [facility] ([id number]) [address], [address] [place] [address] Lipid 1996 panelon 4 Cholesterol [Mass/Vol] 171 mg/dL Normal 150-200 [facility] Comment on above: Performed By: #### Daisy FERGUSON, 85386-7, CBCA #### [facility] ([id number]) [address], [facility] [address] [place] [address] Cholesterol in HDL [Mass/Vol] 42 mg/dL Normal >39 [facility] Comment on above: Result Comment: HDL <40 mg/dL - High Risk HDL > or = 40mg/dL- Desirable HDL >60 mg/dL - Negative Risk Performed By: #### Daisy FERGUSON, 82455-6, CBCA #### [facility] ([id number]) [address], [address] [place] [address] Cholesterol in LDL [Mass/Vol] 102 mg/dL Normal <130 [facility] Comment on above: Result Comment: LDL <100 mg/dL - Desirable LDL >160 mg/dL - High Risk Performed By: #### C PHYLLIS, 57663-3, CBCA #### [facility] ([id number]) [address], [facility] [address] [place] [address] Cholesterol in VLDL [Mass/Vol] 27 mg/dL Normal 0-30 [facility] Comment on above: Performed By: #### Daiys FERGUSON, 50633-1, CBCA #### [facility] ([id number]) [address], [facility] [address] [place] [address] CHOLESTEROL:HDL 4.1 Normal 1.0-5.0 [facility] Comment on above: Performed By: #### Daisy FERGUSON, 20919-5, CBCA #### [facility] ([id number]) [address], [facility] [address] [place] [address] Triglyceride [Mass/Vol] 137 mg/dL Normal 27-150 [facility] Comment on above: Performed By: #### Daisy FERGUSON, 11547-5, CBCA #### [facility] ([id number]) [address], [facility] [address] [place] [address] XR SPINE SCOLIOSIS 1 VIEWon 12-17-2023 XR [...] by Hipolito Trujillo on 12/17/2023 11:15 AM Normal [facility] XR PELVIS 1 OR 2 VWSon 12-14 [...] Ibanez MD on 12/15/2023 9:32 PM Normal [facility] XR ABDOMEN AP 1 VWon 024 XR [...] Hughes MD on 09/12/2023 10:00 AM Normal [facility] CBC AND AUTO DIFFon 09-04-19 24 ABSOLUTE BASOPHIL 0.0 X10E9/L Normal 0.0-0.2 [facility] Comment on above: Performed By: #### C BCA, CMP, 90262-8, THYR, 46754-8 #### [facility] ([id number]) [address], [address] [place] [address] ABSOLUTE NEUTROPHIL 4.1 X10E9/L Normal 1.5-6.6 [facility] Comment on above: Performed By: #### C BCA, CMP, 12160-1, THYR, 82848-8 #### [facility] ([id number]) [address], [address] [place] [address] Basophils/100 WBC (Bld) 0.4 % Normal [facility] Comment on above: Performed By: #### C BCA, CMP, 51651-9, THYR, 09296-9 #### [facility] ([id number]) [address], [address] [place] [address] Eosinophils (Bld) [#/Vol] 0.2 10*3/uL Normal 0.0-0.4 [facility] Comment on above: Performed By: #### C BCA, CMP, 89524-7, THYR, 92048-2 #### [facility] ([id number]) [address], [address] [place] [address] Eosinophils/100 WBC (Bld) 3.4 % Normal [facility] Comment on above: Performed By: #### C BCA, CMP, 90452-4, THYR, 71123-1 #### [facility] ([id number]) [address] [address] [place] [address] Erythrocyte distribution width (RBC) [Ratio] 13.8 % Normal 11.5-15.0 [facility] Comment on above: Performed By: #### C BCA, CMP, 71277-6, THYR, 51915-9 #### [facility] ([id number]) [address], [address] [place] [address] Hematocrit (Bld) [Volume fraction] 39.0 % Normal 35-47 [facility] Comment on above: Performed By: #### C BCA, CMP, 80499-3, THYR, 24335-7 #### [facility] ([id number]) [address], [address] [place] [address] Hemoglobin (Bld) [Mass/Vol] 12.9 g/dL Normal 11.7-15.5 [facility] Comment on above: Performed By: #### C BCA, CMP, 12205-6, THYR, 37134-7 #### [facility] ([id number]) [address], [address] [place] [address] Lymphocytes (Bld) [#/Vol] 1.9 10*3/uL Normal 1.0-3.5 [facility] Comment on above: Performed By: #### C BCA, CMP, 54557-8, THYR, 05930-9 #### [facility] ([id number]) [address], [address] [place] [address] Lymphocytes/100 WBC (Bld) 28.0 % Normal [facility] Comment on above: Performed By: #### C BCA, CMP, 54067-8, THYR, 39975-6 #### [facility] ([id number]) [address], [address] [place] [address] MCH (RBC) [Entitic mass] 29.7 pg Normal 27-34 [facility] Comment on above: Performed By: #### C BCA, CMP, 92860-2, THYR, 40824-7 #### [facility] ([id number]) [address], [address] [place] [address] MCHC (RBC) [Mass/Vol] 33.1 g/dL Normal 32-36 [facility] Comment on above: Performed By: #### C BCA, CMP, 59645-0, THYR, 87580-8 #### [facility] ([id number]) [address], [address] [place] [address] MCV (RBC) [Entitic vol] 90 fL Normal 80-100 [facility] Comment on above: Performed By: #### C BCA, CMP, 26416-0, THYR, 57162-9 #### [facility] ([id number]) [address], [address] [place] [address] Monocytes (Bld) [#/Vol] 0.6 10*3/uL Normal 0-0.9 [facility] Comment on above: Performed By: #### C BCA, CMP, 60284-9, THYR, 08821-4 #### [facility] ([id number]) [address], [address] [place] [address] Monocytes/100 WBC (Bld) 8.8 % Normal [facility] Comment on above: Performed By: #### Daisy BCA, CMP, 43699-1, THYR, 35923-2 #### [facility] ([id number]) [address], [address] [place] [address] Neutrophils/100 WBC (Bld) 59.4 % Normal [facility] Comment on above: Performed By: #### C BCA, CMP, 30521-8, THYR, 08748-8 #### [facility] ([id number]) [address], [address] [place] [address] Platelet mean volume (Bld) [Entitic vol] 8.7 fL Normal 7-12 [facility] Comment on above: Performed By: #### C BCA, CMP, 94266-1, THYR, 15323-7 #### [facility] ([id number]) [address], [address] [place] [address] Platelets (Bld) [#/Vol] 248 10*3/uL Normal 150-450 [facility] Comment on above: Performed By: #### C BCA, CMP, 94763-8, THYR, 54038-0 #### [facility] ([id number]) [address], [address] [place] [address] RBC COUNT 4.36 X10E12/L Normal 3.80-5.20 [facility] Comment on above: Performed By: #### C BCA, CMP, 71060-7, THYR, 70973-1 #### [facility] ([id number]) [address], [address] [place] [address] WBC (Bld) [#/Vol] 6.9 10*3/uL Normal 4.0-11.0 [facility] Comment on above: Performed By: #### C BCA, CMP, 50573-1, THYR, 92146-9 #### [facility] ([id number]) [address], [address] [place] [address] COMPREHENSIVE METABOLIC PANE Judah 09-04-2023 Albumin [Mass/Vol] 4.3 g/dL Normal 3.2-5.3 [facility] Comment on above: Performed By: #### C BCA, CMP, 17866-1, THYR, 63284-2 #### [facility] ([id number]) [address], [address] [place] [address] ALP [Catalytic activity/Vol] 51 U/L Normal 39-130 [facility] Comment on above: Performed By: #### C BCA, CMP, 12349-2, THYR, 47199-1 #### [facility] ([id number]) [address], [address] [place] [address] ALT [Catalytic activity/Vol] 13 U/L Normal 0-31 [facility] Comment on above: Performed By: #### C BCA, CMP, 87093-3, THYR, 43385-5 #### [facility] ([id number]) [address], [address] [place] [address] Anion gap [Moles/Vol] 6 mmol/L Normal 5-15 [facility] Comment on above: Performed By: #### C BCA, CMP, 29025-7, THYR, 97960-4 #### [facility] ([id number]) [address], [address] [place] [address] AST [Catalytic activity/Vol] 16 U/L Normal 0-41 [facility] Comment on above: Performed By: #### C BCA, CMP, 14332-1, THYR, 38640-2 #### [facility] ([id number]) [address], [address] [place] [address] Bilirubin [Mass/Vol] 0.4 mg/dL Normal 0.3-1.2 [facility] Comment on above: Performed By: #### C BCA, CMP, 27179-6, THYR, 37561-5 #### [facility] ([id number]) [address], [address] [place] [address] Calcium [Mass/Vol] 9.6 mg/dL Normal 8.5-10.5 [facility] Comment on above: Performed By: #### C BCA, CMP, 84909-0, THYR, 74652-6 #### [facility] ([id number]) [address], [address] [place] [address] Chloride [Moles/Vol] 100 mmol/L Normal 98-109 [facility] Comment on above: Performed By: #### C BCA, CMP, 54511-0, THYR, 71153-5 #### [facility] ([id number]) [address], [address] [place] [address] CO2 [Moles/Vol] 30 mmol/L Normal 22-32 [facility] Comment on above: Performed By: #### C BCA, CMP, 57586-4, THYR, 46084-2 #### [facility] ([id number]) [address], [address] [place] [address] Creatinine [Mass/Vol] 0.73 mg/dL Normal 0.40-1.00 [facility] Comment on above: Result Comment: METH OD TRACEABLE TO IDMS STANDARD Performed By: #### C BCA, CMP, 55051-3, THYR, 22879-1 #### [facility] ([id number]) [address], [address] [place] [address] eGFR (CKD-EPI) NON-RACE DEPENDENT >90 Normal >59 [facility] Comment on above: Result Comment: Reported eGFR is based on the CKD-EPI 2020 equation that does not use a race coefficient. Performed By: #### C BCA, CMP, 18623-3, THYR, 05566-1 #### [facility] ([id number]) [address], [address] [place] [address] Glucose [Mass/Vol] 98 mg/dL Normal 65-99 [facility] Comment on above: Performed By: #### C BCA, CMP, 95318-3, THYR, 47760-1 #### [facility] ([id number]) [address], [address] [place] [address] Potassium [Moles/Vol] 4.0 mmol/L Normal 3.5-5.0 [facility] Comment on above: Performed By: #### C BCA, CMP, 55567-4, THYR, 00711-7 #### [facility] ([id number]) [address], [address] [place] [address] Protein [Mass/Vol] 7.2 g/dL Normal 6.0-8.0 [facility] Comment on above: Performed By: #### C BCA, CMP, 18527-3, THYR, 19032-9 #### [facility] ([id number]) [address], [address] [place] [address] Sodium [Moles/Vol] 136 mmol/L Normal 134-146 [facility] Comment on above: Performed By: #### Daisy BCA, CMP, 09477-6, THYR, 97081-7 #### [facility] ([id number]) [address], [address] [place] [address] Urea nitrogen [Mass/Vol] 24 mg/dL Normal 5-27 [facility] Comment on above: Performed By: #### Daisy BCA, CMP, 96549-6, THYR, 17596-8 #### [facility] ([id number]) [address], [address] [place] [address] Lipid 1996 panelon 4 Cholesterol [Mass/Vol] 215 mg/dL High 150-200 [facility] Comment on above: Performed By: ###Enio Villa BCA, CMP, 27415-3, THYR, 53613-0 #### [facility] ([id number]) [address], [address] [place] [address] Cholesterol in HDL [Mass/Vol] 47 mg/dL Normal >39 [facility] Comment on above: Result Comment: HDL <40 mg/dL - High Risk HDL > or = 40mg/dL- Desirable HDL >60 mg/dL - Negative Risk Performed By: ###Enio Villa BCA, CMP, 29058-7, THYR, 78037-0 #### [facility] ([id number]) [address], [address] [place] [address] Cholesterol in LDL [Mass/Vol] 141 mg/dL High <130 [facility] Comment on above: Result Comment: LDL <100 mg/dL - Desirable LDL >160 mg/dL - High Risk Performed By: #### Daisy BCA, CMP, 35683-4, THYR, 88269-2 #### [facility] ([id number]) [address], [address] [place] [address] Cholesterol in VLDL [Mass/Vol] 27 mg/dL Normal 0-30 [facility] Comment on above: Performed By: #### C BCA, CMP, 29263-8, THYR, 17678-4 #### [facility] ([id number]) [address], [address] [place] [address] CHOLESTEROL:HDL 4.6 Normal 1.0-5.0 [facility] Comment on above: Performed By: #### C BCA, CMP, 53170-7, THYR, 87688-7 #### [facility] ([id number]) [address], [address] [place] [address] Triglyceride [Mass/Vol] 134 mg/dL Normal 27-150 [facility] Comment on above: Performed By: #### C BCA, CMP, 61304-0, THYR, 91908-6 #### [facility] ([id number]) [address], [address] [place] [address] THYROID PROFILEon 09-04-2023 Free T4 [Mass/Vol] 0.67 ng/dL Normal 0.61-1.60 [facility] Comment on above: Performed By: #### C BCA, CMP, 29503-1, THYR, 19705-0 #### [facility] ([id number]) [address], [address] [place] [address] TSH 0.91 uIU/mL Normal 0.49-4.67 [facility] Comment on above: Performed By: #### C BCA, CMP, 69985-7, THYR, 14002-0 #### [facility] ([id number]) [address], [address] [place] [address] Vitamin D+Metabolites [Mass/ Vol]on 09-04-2023 VITAMIN D 25 HYD TOT 35.0 ng/mL Normal 30-100 [facility] Comment on above: Result Comment: Vitamin D status 25 [place] Vitamin D Deficiency <20 ng/mL Insufficiency 20-29 ng/mL Sufficiency 30-100 ng/mL Toxicity >100 ng/mL NOTE: A pediatric reference range has not been established by the lower in supervisor of this kit. The [place] [employer] recommends a Vitamin D level of = or >20ng/mL in infants and children. Performed By: #### C BCA, CMP, 07630-5, THYR, 01737-9 #### [facility] ([id number]) [address] [place] [address] MG MAMM LT DIAG FUon 023 MG MAMM LT DIAG FU Patient: SALMA PELAEZ Exam Date: 09/06/2022 : 1960 Gender:F Ordering : DR DREA ROA Admission #: [id number] Family : Order #: [id number] CLICK HERE TO VIEW EXAM RADIOLOGY REPORT [...] colon cancer at age 59. LOCATION: [facility] BREAST COMPOSITION: Heterogeneously dense,which may [...] Jean M.D. on 09/06/2022 at 14:52 Normal [facility] US BREAST LEFT LIMITEDon US BREAST LEFT LIMITED Patient: SALMA PELAEZ Exam Date: 09/06/2022 : 1960 Gender:F Ordering : DR DREA ROA Admission #: [id number] Family : Order #: [id number] CLICK HERE TO VIEW EXAM RADIOLOGY REPORT [...] colon cancer at age 59. LOCATION: [facility] BREAST COMPOSITION: Heterogeneously dense,which may [...] Jean M.D. on 09/06/2022 at 14:52 Normal [facility] MG MAMM SCREEN 3D LARY CADon 08-13-2022 MG MAMM SCREEN 3D LARY CAD Patient: SALMA PELAEZ Exam Date: 08/13/2022 : 1960 Gender:F Ordering : DR DREA ROA Admission #: [id number] Family : Order #: [id number] CLICK HERE TO VIEW EXAM RADIOLOGY REPORT PROCEDURE: MAMMOGRAM SCREENING 3D BILATERAL CAD COMPARISON: MG MAMM SCREEN LARY W CAD, 07/11/2020. MG MAMM SCREEN LARY W CAD, 07/07/2019. MAMMO LARY SCREEN, 07/13/2010. MG MAMM SCREEN 3D LARY CAD, 07/31/2021. INDICATIONS: Screening mammography Calculator Name [facility] Breast Cancer Risk Assessment Tool 5 Year Breast Cancer Risk 2.30% Lifetime Breast Cancer Risk 10.30% Personal Breast Cancer No Personal Ovarian Cancer No Treatments None Family Cancers Grandmother-maternal with colon cancer at age 60. LOCATION: [facility] BREAST COMPOSITION: Heterogeneously dense,which may [...] M.D. on 08/15/2022 at 08:14 Normal [facility] [place] 06-03-2020 ALT No additional P-5'-P [Catalytic activity/Vol] 16 Int._Unit/L Normal 6-46 [facility] Comment on above: Performed By: #### 2 285214, 3022056, 28213119, 2647548, 9641784, 0655017, 796350354 #### [facility] [address] [place] [address] Diane 06-03-2020 AST [Catalytic activity/Vol] 17 Int._Unit/L Normal 5-43 [facility] Comment on above: Performed By: #### 2 361282, 3512902, 28293148, 6651293, 3426251, 8804959, 379330303 #### [facility] [address] [place] [address] [facility] 06-03-2020 Anion gap [Moles/Vol] 13 mmol/L Normal 6-16 [facility] Comment on above: Performed By: #### 2 090864, 2595095, 31418098, 0416077, 6176535, 4894867, 987344553 #### [facility] [address] [place] [address] Calcium [Mass/Vol] 9.2 mg/dL Normal 8.9-11.1 [facility] Comment on above: Performed By: #### 2 212300, 3329113, 53314710, 0526956, 2714588, 4989126, 441279335 #### [facility] [address] [place] [address] Chloride [Moles/Vol] 103 mmol/L Normal 101-111 [facility] Comment on above: Performed By: #### 2 765566, 0715855, 19978009, 3956066, 7009829, 1971400, 140381946 #### [facility] [address] [place] [address] CO2 [Moles/Vol] 29 mmol/L Normal 21-31 [facility] Comment on above: Performed By: #### 2 929067, 2482092, 78962613, 3661018, 9133123, 6355096, 663338122 #### [facility] [address] [place] [address] Creatinine [Mass/Vol] 0.6 mg/dL Normal 0.5-1.3 [facility] Comment on above: Performed By: #### 2 328419, 5805750, 79232014, 6105845, 7752679, 4424477, 173996504 #### [facility] [address] [place] [address] Glucose [Mass/Vol] 88 mg/dL Normal 55-199 [facility] Comment on above: Result Comment: If t his glucose result represents a fasting glucose, interpretation should refer to the following reference range: 55-99 mg/dL Performed By: #### 2 222329, 1995730, 23222165, 0014436, 0897255, 5744255, 693492563 #### [facility] [address] [place] [address] Potassium [Moles/Vol] 4.6 mmol/L Normal 3.5-5.3 [facility] Comment on above: Performed By: #### 2 783311, 2261342, 93994626, 0487668, 0027639, 5684886, 958372012 #### [facility] [address] [place] [address] Sodium [Moles/Vol] 140 mmol/L Normal 135-145 [facility] Comment on above: Performed By: #### 2 480027, 0399300, 50291777, 1070573, 0663192, 1859416, 650991344 #### [facility] [address] [place] [address] Urea nitrogen [Mass/Vol] 19 mg/dL Normal 5-21 [facility] Comment on above: Performed By: #### 2 657772, 3499271, 62414314, 6583393, 6280896, 8075286, 558193671 #### [facility] [address] [place] [address] Urea nitrogen/Creatinine [Mass ratio] 32 No Units High 10-20 [facility] Comment on above: Performed By: #### 2 559911, 7892956, 64710725, 6670318, 8597336, 0382986, 156224359 #### [facility] [address] [place] [address] CBC w/Indiceson 06-03-2020 Erythrocyte distribution width (RBC) [Ratio] 13.5 % Normal 10.9-14.2 [facility] Comment on above: Performed By: #### 2 498473, 1316088, 59809481, 8843340, 8615216, 4519460, 318979569 #### [facility] [address] [place] [address] Hematocrit (Bld) [Volume fraction] 41.7 % Normal 34.0-46.0 [facility] Comment on above: Performed By: #### 2 187476, 1726236, 37366645, 8376906, 2369329, 2121381, 761521554 #### [facility] [address] [place] [address] Hemoglobin (Bld) [Mass/Vol] 14.2 g/dL Normal 12.0-16.0 [facility] Comment on above: Performed By: #### 2 716759, 9092421, 56811721, 6373570, 3840430, 3643398, 154219743 #### [facility] [address] [place], [place] [address] MCH (RBC) [Entitic mass] 30.7 pg Normal 27.0-34.0 [facility] Comment on above: Performed By: #### 2 884690, 0622438, 14401320, 4947433, 8133477, 5833186, 804576355 #### [facility] [address] [place] [address] MCHC (RBC) [Mass/Vol] 34.0 g/dL Normal 31.4-36.0 [facility] Comment on above: Performed By: #### 2 575873, 3542902, 42717508, 4054286, 9959772, 1602776, 387852601 #### [facility] [address] [place] [address] MCV (RBC) [Entitic vol] 90.3 fL Normal 80.0-100.0 [facility] Comment on above: Performed By: #### 2 908656, 0814316, 37513863, 9633721, 4564677, 0390555, 161053801 #### [facility] [address] [place] [address] Platelet mean volume (Bld) [Entitic vol] 8.5 fL Normal 6.4-10.8 [facility] Comment on above: Performed By: #### 2 406676, 6985469, 68619303, 2007325, 7433356, 8278029, 110163065 #### [facility] [address] [place] [address] Platelets (Bld) [#/Vol] 258.0 E9/L Normal 150.0-500.0 [facility] Comment on above: Performed By: #### 2 303656, 2895796, 49683134, 4960905, 6241012, 5965300, 188252167 #### [facility] [address] [place] [address] RBC (Bld) [#/Vol] 4.6 E12/L Normal 4.3-5.9 [facility] Comment on above: Performed By: #### 2 699178, 9104513, 40332022, 4463436, 9545604, 8339548, 843077651 #### [facility] [address] [place] [address] WBC corrected for nucl RBC Auto (Bld) [#/Vol] 8.6 E9/L Normal 4.0-11.0 [facility] Comment on above: Performed By: #### 2 289033, 7762886, 26913885, 2493514, 8599266, 9486898, 842028161 #### [facility] [address] [place] [address] Lipid Panelon 06-03-2020 Cholesterol [Mass/Vol] 172 mg/dL Normal 120-200 [facility] Comment on above: Performed By: #### 2 593422, 6192779, 00393662, 2069663, 7121876, 9935060, 006874265 #### [facility] [address] [place] [address] Cholesterol in HDL [Mass/Vol] 53 mg/dL [facility] Comment on above: Result Comment: HDL > or equal to 60 mg/dL: Low cardiovascular risk HDL < 40 mg/dL : High cardiovascular risk Performed By: #### 2 959634, 3153054, [id number], [id number], [id number], [id number], [id number] #### [facility] [address] [place] [address] Cholesterol in LDL [Mass/Vol] 104 mg/dL Normal <=129 [facility] Comment on above: Performed By: #### 2 [id number], [id number], [id number], [id number], [id number], [id number], [id number] #### [facility] [address] [place] [address] Cholesterol in VLDL [Mass/Vol] 18 mg/dL Normal 7-40 [facility] Comment on above: Performed By: #### 2 [id number], [id number], [id number], [id number], [id number], [id number], [id number] #### [facility] [address] [place] [address] Triglyceride [Mass/Vol] 88 mg/dL Normal <=149 [facility] Comment on above: Performed By: #### 2 [id number], [id number], [id number], [id number], 2721307, [id number], [id number] #### [facility] [address] [place] [address] Vitamin D 25 Hydroxyon 06-03 Calcidiol [Mass/Vol] 32.2 ng/mL Normal 30.0-100.0 [facility] Comment on above: Result Comment: Vit lopez D deficiency has been defined as a level of serum 25-OH vitamin D less than 20 ng/mL (1,2) by the [employer] and an Endocrine Society practice guideline. The Endocrine Society further defined vitamin D insufficiency as a level between 21 and 29 ng/mL (2). 1. IOM ([employer]). 2010. Dietary reference intakes for calcium and D. [place]: The National Academies Press. 2. Holick MF, Meri NC, Krissy PIERCE, et al. Evaluation, treatment, and prevention of vitamin D deficiency: an Endocrine Society clinical practice guideline. JCEM. 2010; 96 (7):1911-30. Performed By: #### 2 [id number] #### [facility] [address] [place] [address] eGFRon 06-03-2020 GFR/1.73 sq M predicted among blacks MDRD (S/P/Bld) [Vol rate/Area] mL/min/{1.73_m2} Normal >=59 [facility] Comment on above: Order Comment: Order added by Discern Expert. Result Comment: eGFR is race adjusted. AA=. Performed By: #### 2 [id number] #### [facility] [address] [place] [address] GFR/1.73 sq M predicted among non-blacks MDRD (S/P/Bld) [Vol rate/Area] mL/min/{1.73_m2} Normal >=59 [facility] Comment on above: Order Comment: Order added by Discern Expert. Result Comment: Serging Machine Operator Automatic anh kidney disease could be indicated at eGFR's of less than 60 mL/min/1.73m2. Kidney failure is indicated at less than 15 mL/min/1.73m2. Performed By: #### 2 [id number] #### [facility] [address] [place] [address] Vital Signs Date Time Vital Sign Value Performing Clinician Alexandr matamoros 07-14-2024 07:33-0500 Body height 172.7 cm Drea Roa MD Work Phone: [employer] 07-14-2024 07:33-0500 Body mass index (BMI) [Ratio] 28.89 kg/m2 Drea Roa MD Work Phone: [facility] 07-14-2024 07:33-0500 Body temperature 97.9 [degF] Drea Roa MD Work Phone: [facility] 07-14-2024 07:33-0500 Body weight 86.18 kg Drea Roa MD Work Phone: [facility] 07-14-2024 07:33-0500 Diastolic blood pressure 88 mm[Hg] Drea Roa MD Work Phone: [facility] 07-14-2024 07:33-0500 Respiratory rate 16 /min Drea Roa MD Work Phone: [facility] 07-14-2024 07:33-0500 Systolic blood pressure 140 mm[Hg] Drea Roa MD Work Phone: [facility] Encounters Encounter Date Encounter Type Care Provider Facility Start: 10-07-2024 End: 10-07-2024 Orders Only Drea Roa MD Work Phone: [facility] Comment on above: Levoscoliosis Start: 09-06-2024 End: 09-06-2024 Refill Drea Roa MD Work Phone: [facility] Start: 07-26-2024 End: 07-26-2024 ambulatory DREA ORA [facility] Start: 07-22-2024 End: 07-22-2024 ambulatory DREA ROA [facility] Start: 07-22-2024 Encounter for genera l adult medical examination without abnormal findings DREA ROA [facility] Start: 07-14-2024 End: 07-14-2024 Patient encounter status Drea Roa MD Work Phone: [facility] Start: 07-14-2024 End: 07-14-2024 Periodic preventive med est patient 40-64yrs Drea Roa MD Work Phone: [facility] Comment on above: Routine general medi mario examination at a health care facility (Primary Dx); Encounter for screening mammogram for malignant neoplasm of breast; Levoscoliosis; Trigger finger of left hand, unspecified finger Start: 07-14-2024 End: 07-14-2024 [facility] Start: 07-14-2024 Encounter for genera l adult medical examination without abnormal findings [facility] Start: 07-07-2024 End: 07-07-2024 Orders Only Drea Roa MD Work Phone: [facility] Comment on above: Acute cough (Primary Dx) Start: 07-06-2024 End: 07-06-2024 Orders Only Drea Roa MD Work Phone: [facility] Start: 04-30-2024 End: 04-30-2024 Orders Only Drea Roa MD Work Phone: [facility] Comment on above: Rheumatoid arthritis , erosive, seronegative ([facility]) Start: 03-08-2024 End: 03-08-2024 Orders Only Drea Roa MD Work Phone: [facility] Comment on above: Abnormal mammogram o f both breasts (Primary Dx) Start: 03-05-2024 End: 03-05-2024 Refill Drea Roa MD Work Phone: [facility] Start: 01-29-2024 End: 01-29-2024 Orders Only Drea Roa MD Work Phone: [facility] Start: 12-15-2023 End: 12-15-2023 ambulatory DREA ROA [facility] Start: 11-14-2023 Orders Only Drea gomez MD Work Phone: [facility] Start: 10-16-2023 Telephone encounter Drea Sam MD Work Phone: [facility] Start: 09-29-2023 Orders Only Drea gomez MD Work Phone: [facility] Comment on above: Rheumatoid arthritis , erosive, seronegative ([facility]) Start: 09-11-2023 Refill Drea gomez MD Work Phone: [facility] Start: 09-11-2023 End: 09-11-2023 ambulatory AGUSTO BELL [facility] Start: 09-04-2023 End: 09-04-2023 ambulatory DREA ROA [facility] Start: 09-04-2023 Encounter for genera l adult medical examination without abnormal findings DREA ROA [facility] Start: 08-22-2023 Refill Drea gomez MD Work Phone: [facility] Start: 08-07-2023 Orders Only Drea gomez MD Work Phone: [facility] Start: 09-06-2022 End: 09-07-[address] DREA ROA Facility:[facility] Start: 08-13-2022 End: 08-14-[address] DREA ROA Facility:[facility] Procedures Date Procedure Procedure Detail Performing Clinician Start: 07-14-2024 Adult depression scr eening assessment Drea Roa MD Work Phone: Start: 03-19-2024 Mammography Drea altamirano MD Work Phone: Start: 08-22-2023 Mammography Drea altamirano MD Work Phone: Start: 09-06-2022 Mammography Drea altamirano MD Work Phone: Start: 07-10-2022 Adult depression scr eening assessment Drea Roa MD Work Phone: Plan of Treatment Date Care Activity Detail Author Start: 07-14-2025 Adult BMI Screening Adult BMI Screen ing [facility] Start: 07-14-2025 End: 07-14-2025 DBT Breast - bilateral screening Mammography screening bilateral with CAD Imaging Routine Encounter for screening mammogram for malignant neoplasm of breast Expected: 07/14/2025 (Approximate), Expires: 07/14/2025 [facility] Work Phone: Comment on above: Expected: 07/14/2025 (Approximate), Expires: 07/14/2025 Start: 07-14-2025 Depression Screening Depression Scre ening [facility] Start: 07-14-2025 Tobacco Screening Tobacco Screening [facility] Start: 03-19-2025 Screening for malign ant neoplasm of breast Mammogram [facility] Start: 2024 Fall Risk Screening Fall Risk Screen ing [facility] Start: 08-22-2024 Screening for malign ant neoplasm of breast Mammogram [facility] Start: 07-14-2024 End: 07-14-2025 CBC W Auto Differential panel - Blood CBC auto differential Lab Routine Routine general medical examination at a health care facility Expected: 07/14/2024, Expires: 07/14/2025 [facility] Comment on above: Expected: 07/14/2024 , Expires: 07/14/2025 Start: 07-14-2024 End: 07-14-2025 Comprehensive metabolic 2000 panel - Serum or Plasma Comprehensive metabolic panel Lab Routine Routine general medical examination at a health care facility Expected: 07/14/2024, Expires: 07/14/2025 [facility] Comment on above: Expected: 07/14/2024 , Expires: 07/14/2025 Start: 07-14-2024 End: 07-14-2025 DXA Skeletal system Views for bone density Dexa scan central skeletal Imaging Routine Routine general medical examination at a health care facility Expected: 07/14/2024, Expires: 07/14/2025 [facility] Comment on above: Expected: 07/14/2024 , Expires: 07/14/2025 Start: 07-14-2024 End: 07-14-2025 Lipid 1996 panel - Serum or Plasma Lipid profile Lab Routine Routine general medical examination at a health care facility Expected: 07/14/2024, [facility] Expected: 07/14/2024 , Expires: 07/14/2025 Start: 07-14-2024 End: 07-14-2025 XR Thoracic and lumbar spine for scoliosis single view X-ray spine scoliosis 1 view Imaging Routine Levoscoliosis Expected: 07/14/2024, Expires: 07/14/2025 [facility] Comment on above: Expected: 07/14/2024 , Expires: 07/14/2025 Start: 07-14-2024 End: 07-14-2024 Patient encounter procedure 07/14/2024 8:00 AM EST Office Visit [facility] [address] [place] [id number] Drea Roa MD [address] [place] [address] [facility] Start: 07-11-2024 Adult BMI Screening Adult BMI Screen ing [facility] Start: 07-11-2024 Tobacco Screening Tobacco Screening [facility] Start: 07-06-2024 End: 07-06-2024 Patient encounter procedure 07/06/2024 8:00 AM EST Office Visit [facility] [address] [id number] Drea Roa MD [address] [place] [address] [facility] Start: 04-11-2024 COVID-19 Vaccine ( season) COVID-19 Vaccine ( season) [facility] Start: 04-11-2024 COVID-19 Vaccine ( season) COVID-19 Vaccine ( season) [facility] Start: 04-11-2024 Influenza vaccination Influenza Vacc ine [facility] Start: 03-08-2024 End: 03-08-2025 US Breast - bilateral limited Ultrasound breast limited bilateral Imaging Routine Abnormal mammogram of both breasts Expected: 03/08/2024, Expires: 03/08/2025 [facility] Work Phone: Comment on above: Expected: 03/08/2024 , Expires: 03/08/2025 Start: 09-06-2023 Screening for malign ant neoplasm of breast Mammogram [facility] Start: 07-10-2023 Depression Screening Depression Scre ening [facility] Start: 04-11-2023 COVID-19 Vaccine ( season) COVID-19 Vaccine ( season) [facility] Start: 2009 Administration of varicella zoster vaccine Zoster (Shingles) Vaccine (1 of 2) [facility] Start: 1980 Screening for malign ant neoplasm of cervix Pap Smear [facility] Start: 1978 DTaP,Tdap and Td Vaccines (1 - Tdap) DTaP,Tdap and Td Vaccines (1 - Tdap) [facility] Start: 1977 Adult BMI Follow Up Plan Adult BMI Follow Up Plan [facility] End: 07-14-2025 Immune Fecal OB - FIT Immune Fecal OB - FIT Lab Routine Routine general medical examination at a health care facility 1 Occurrences starting 07/14/2024 until 07/14/2025 [facility] Comment on above: 1 Occurrences starti ng 07/14/2024 until 07/14/2025 Immunizations Immunization Date Immunization Notes Care Provider Marlin rios 05-28-2023 influenza virus vaccine, unspecified formulation Drea Roa MD Work Phone: [facility] 06-08-2022 influenza, injectabl e, quadrivalent, preservative free Drea Roa MD Work Phone: [facility] 09-15-2020 COVID-19, mRNA, LNP- S, PF, 100mcg/0.5mL Dose Drea Roa MD Work Phone: [facility] 08-18-2020 COVID-19, mRNA, LNP- S, PF, 100mcg/0.5mL Dose Drea Roa MD Work Phone: [facility] 05-26-2020 influenza, injectabl e, quadrivalent, preservative free Drea Roa MD Work Phone: [facility] Payers Date Payer Category Payer Commercial Managed C are - HMO [employer] [id number] 2018 Unknown [employer] [id number] 2018-Present [phone] [address] [place] [address] [id number] 1959 Unknown [id number] 1959 Unknown [id number] [id number] 1959 Unknown [id number] [id number] 1959 Unknown [id number] [id number] 1959 Unknown [id number] [id number] 1959 Unknown [id number] [id number] 1959 Unknown [id number] [id number] 1959 Unknown [id number] [id number] 1959 Unknown [id number] [id number] 1959 Unknown [id number] Social History Date Type Detail Facility Start: 07-11-2022 Tobacco smoking status [facility] Never smoked tobacco [facility] Start: 07-11-2022 Tobacco use and exposure Smokeless tobacco non-user [facility] Start: 07-11-2023 End: 07-14-2024 Alcoholic beverage intake Current drinker of alcohol (finding) [facility] Start: 07-10-2022 End: 07-14-2024 History of Social function [facility] Start: 07-10-2022 End: 07-14-2024 Social connection and isolation panel [facility] Do you belong to any clubs or organizations such as scientologist groups, unions, fraTianji or athletic groups, or school groups? No [facility] Are you now , , , , never or living with a partner? [facility] How often to you hav e a drink containing alcohol? Monthly or less [facility] How many standard dr inks containing alcohol do you have on a typical day? 1 or 2 [facility] How often do you hav e 6 or more drinks on 1 occasion? Never [facility] How hard is it for y ou to pay for the very basics like food, housing, medical care, and heating Not hard at all [facility] Do you feel stress - tense, restless, nervous, or anxious, or unable to sleep at night because your mind is troubled all the time - these days [OSQ] Not at all [facility] Start: 06-29-2020 Education 15 [facility] Start: 07-11-2022 Alcohol Comment rarely [facility] Start: 1960 Sex assigned at Female [facility] Start: 03-16-2015 Sex Female (finding) [facility] Start: 05-30-2021 Gender identity Identifies as female gender (finding) [facility] Start: 05-30-2021 Sexual orientation Heterosexual (finding) [facility] Medical Equipment Procedure Code Equipment Code Equipment Origin al Text Equipment Identifier Dates Bearing Tib [id number] Kn Ant Stab Inlay Vngrd Arcm - [id number] Start: 08-16-2021 Cement Bn Bio 40 gm Rpl [id number] - [id number] Start: 08-16-2021 Component Fem Kn Lt 70mm Crcte Rtn Cmnt Prm Vngrd Intlk Cocr - [id number] Start: 08-16-2021 Tray Tib Ascnt M xm 75mm Intlk Cocr Kn I Beam - [id number] Start: 08-16-2021 Component Ptlr T hn 6.2mm 31mm 3 Pg Wr Vngrd Kn Strl Ser A - [id number] Start: 08-16-2021 Goals Date Patient Goal Desired Activity /State Personal health goal Comment on above: Formatting of this n ote might be different from the original. Evaluation of progress towards goal: Maximize work with PT at discharge to strengthen L knee Clinical Notes 09-29-2023 to 07-14-2024 Drea Roa MD - 07/14/2024 8:00 AM ESTTelephone Encounter - Drea Roa MD - 10/16/2023 8:16 AM ESTTelephone Encounter - Drea Roa MD - 10/16/2023 8:16 AM EST Note Date & Type Note Facility 07-14-2024 History of Present illness Narrative Images from the original note were not included. [id number] [facility] [address] Subjective: Salma Pelaez is a 63 y.o. female who presents for an Annual Wellness exam. 63 yo W with RA appears to be worsening, nonsmoker, rare to no ethanol, pt trying to walk, pt is concerned to check scoliosis and dexascan, labs, FIT test and mammogram, if not for RA pt would be doing well The following portions of the patient's history were reviewed and updated as appropriate: medications, allergies, past medical history, past surgical history, social history, family history and immunization history Vitals: Vitals: 07/14/24 0733 BP: 140/88 Resp: 16 Temp: 36.6 C (97.9 F) TempSrc: Tympanic Weight: 86.2 kg (190 lb) Height: 172.7 cm (5' 8 ) History: Patient Active Problem List Diagnosis Date Noted Status post left knee replacement 07/31/2022 Calculus of gallbladder without cholecystitis without obstruction 07/11/2022 Renal cyst 05/15/2022 Nephrolithiasis 04/17/2022 Difficulty voiding 04/17/2022 Postmenopausal HRT (hormone replacement therapy) 08/16/2021 GERD (gastroesophageal reflux disease) Panic disorder Osteoarthritis 08/06/2021 Left knee pain 08/01/2021 Rheumatoid arthritis ([facility]) 07/01/2020 Primary osteoarthritis of left knee 04/16/2018 Past Medical History: Diagnosis Date Breast disorder Benign Dental disease Crowns GERD (gastroesophageal reflux disease) Hyperlipidemia Hypertension Kidney stones Osteoarthritis PONV (postoperative nausea and vomiting) Primary generalized (osteo)arthritis Rheumatoid arthritis ([facility]) Visual impairment Past Surgical History: Procedure Laterality Date BONE RESECTION, RIB In 's BREAST SURGERY Bilateral Breast biopsies x 5 KNEE ARTHROSCOPY Left 2000 REPLACEMENT TOTAL JOINT KNEE Left 08/16/2021 Performed by Drea Pierson MD at [facility] TUBAL LIGATION Age 24 Family History Problem Relation Age of Onset Kidney disease Mother Heart disease Mother Stroke Father Diabetes Father Kidney failure Father Heart disease Father Hypertension Sister Diabetes Sister Colon cancer Maternal Grandmother Heart disease Maternal Grandfather Anesthesia problems Neg Hx Bleeding Disorder Neg Hx Social History Tobacco Use Smoking status: Never Smokeless tobacco: Never Substance Use Topics Alcohol use: Yes Comment: rarely Allergies: No Known Allergies Immunization History Administered Date(s) Administered COVID-19, mRNA, LNP-S, PF, 100mcg/0.5mL Dose 08/18/2020, 09/15/2020 Influenza, Injectable, quadrivalent (PF) 05/26/2020, 06/08/2022 Review of Systems: Review of Systems Musculoskeletal: Positive for arthralgias and back pain. Objective: BP 140/88 Temp 36.6 C (97.9 F) (Tympanic) Resp 16 Ht 172.7 cm (5' 8 ) Wt 86.2 kg (190 lb) BMI 28.89 kg/m Physical Exam Vitals and nursing note reviewed. Constitutional: Appearance: Normal appearance. HENT: Head: Normocephalic and atraumatic. Eyes: Extraocular Movements: Extraocular movements intact. Pupils: Pupils are equal, round, and reactive to light. Cardiovascular: Rate and Rhythm: Normal rate and regular rhythm. Pulses: Normal pulses. Heart sounds: Normal heart sounds. Pulmonary: Effort: Pulmonary effort is normal. Breath sounds: Normal breath sounds. Musculoskeletal: Comments: Trochanteric tenderness bilat, scoliosis, arthritic changes, left middle finger trigger Skin: General: Skin is warm and dry. Neurological: General: No focal deficit present. Mental Status: She is alert and oriented to person, place, and time. Psychiatric: Mood and Affect: Mood normal. Behavior: Behavior normal. Assessment/Plan: Salma was seen today for annual exam. Diagnoses and all orders for this visit: Encounter for screening mammogram for malignant neoplasm of breast - Mammography screening bilateral with CAD; Future Routine general medical examination at a health care facility - Dexa scan central skeletal; Future - CBC auto differential; Future - Comprehensive metabolic panel; Future - Lipid profile; Future - Immune Fecal OB - FIT; Future Levoscoliosis - X-ray spine scoliosis 1 view; Future Trigger finger of left hand, unspecified finger - Ambulatory referral to Orthopedic Surgery; Future Other orders - candesartan (ATACAND) 32 mg tablet; Take 1 tablet (32 mg total) by mouth in the morning. - celecoxib (CeleBREX) 200 mg capsule; Take 1 capsule (200 mg total) by mouth in the morning and 1 capsule (200 mg total) before bedtime. - estradioL (ESTRACE) 2 mg tablet; Take 1 tablet (2 mg total) by mouth in the morning. - hydroCHLOROthiazide (HYDRODIURIL) 25 mg tablet; Take 1 tablet (25 mg total) by mouth daily. - medroxyPROGESTERone (PROVERA) 5 mg tablet; Take 1 tablet (5 mg total) by mouth in the morning. - predniSONE (DELTASONE) 10 mg tablet; Take 1 tablet (10 mg total) by mouth in the morning. - atorvastatin (LIPITOR) 10 mg tablet; Take 1 tablet (10 mg total) by mouth in the morning. - pantoprazole (PROTONIX) 40 mg EC tablet; Take 1 tablet (40 mg total) by mouth in the morning and 1 tablet (40 mg total) before bedtime. Plan Outpatient Medications Prior to Visit Medication Sig Dispense Refill carisoprodoL (SOMA) 350 mg tablet Take 1 tablet (350 mg total) by mouth 3 (three) times a day as needed. clotrimazole (MYCELEX) 10 mg brian DISSOLVE 1 TABLET (10 MG TOTAL) IN THE MOUTH 3 (THREE) TIMES A DAY diclofenac sodium (VOLTAREN) 1 % gel Apply 2 g topically in the morning and 2 g at noon and 2 g in the evening and 2 g before bedtime. 100 g 5 lidocaine (LIDODERM) 5 % APPLY 1 PATCH DAILY AND REMOVE AND DISCARD WITHIN 12 HOURS DIRECTED 90 patch 1 meclizine (ANTIVERT) 25 mg tablet Take 1 tablet (25 mg total) by mouth 3 (three) times a day as needed for dizziness. 30 tablet 5 meloxicam (MOBIC) 7.5 mg tablet atorvastatin (LIPITOR) 10 mg tablet TAKE 1 TABLET IN THE MORNING 90 tablet 3 candesartan (ATACAND) 32 mg tablet Take 1 tablet (32 mg total) by mouth in the morning. 90 tablet 3 celecoxib (CeleBREX) 200 mg capsule Take 1 capsule (200 mg total) by mouth in the morning and 1 capsule (200 mg total) before bedtime. 180 capsule 3 esomeprazole (NexIUM) 40 mg capsule Take 1 capsule (40 mg total) by mouth in the morning. 90 capsule 3 estradioL (ESTRACE) 2 mg tablet TAKE 1 TABLET EVERY MORNING 90 tablet 3 hydroCHLOROthiazide (HYDRODIURIL) 25 mg tablet TAKE 1 TABLET DAILY 90 tablet 3 medroxyPROGESTERone (PROVERA) 5 mg tablet TAKE 1 TABLET EVERY MORNING 90 tablet 3 predniSONE (DELTASONE) 10 mg tablet Take 1 tablet (10 mg total) by mouth in the morning. predniSONE (DELTASONE) 10 mg tablet TAKE 6 TABS DAILY X 3 DAYS THEN 1 LESS EACH DAY WITH FOOD (Patient not taking: Reported on 07/14/2024) 33 tablet 0 benzonatate (TESSALON PERLES) 200 mg capsule Take 1 capsule (200 mg total) by mouth 3 (three) times a day as needed for cough. (Patient not taking: Reported on 07/14/2024) 30 capsule 1 chlorpheniramine-HYDROcodone (TUSSIONEX PENNKINETIC) 8-10 mg/5 mL ER suspension Take 5 mL by mouth every 12 (twelve) hours as needed for cough. Max Daily Amount: 10 mL (Patient not taking: Reported on 07/14/2024) 115 mL 0 No facility-administered medications prior to visit. Follow Up: [facility] Miscellaneous Notes US wnl's documented in this encounter [facility] 10-16-2023 Telephone encounter Note US wnl's [facility] 09-29-2023 History of Present illness Narrative OAARS check for soma refill documented in this encounter [facility] Evaluation note Diagnosis Rheumatoid arthritis, erosive, seronegative (CMS-HCC) [facility] Diagnosis Abnormal mammogram of both breasts- Primary [facility] Rheumatoid arthritis, erosive, seronegative (CMS-HCC) [facility] Diagnosis Difficulty voiding- Primary Other symptoms involving urinary system Nephrolithiasis Calculus of kidney Nephrolithiasis- Primary Calculus of kidney Difficulty voiding Other symptoms involving urinary system Renal cyst Unspecified congenital cystic kidney disease Acute cough- Primary [facility] Diagnosis Difficulty voiding- Primary Other symptoms involving urinary system Nephrolithiasis Calculus of kidney Nephrolithiasis- Primary Calculus of kidney Difficulty voiding Other symptoms involving urinary system Renal cyst Unspecified congenital cystic kidney disease Routine general medical examination at a health care facility- Primary Encounter for screening mammogram for malignant neoplasm of breast Levoscoliosis Trigger finger of left hand, unspecified finger documented in this encounter [facility] Diagnosis Difficulty voiding- Primary Other symptoms involving urinary system Nephrolithiasis Calculus of kidney Nephrolithiasis- Primary Calculus of kidney Difficulty voiding Other symptoms involving urinary system Renal cyst Unspecified congenital cystic kidney disease Levoscoliosis documented in this encounter [facility] filedocumented in this encounter [facility] on filedocumented in this encounter [facility] on filedocumented in this encounter [facility] filedocumented in this encounter [facility] on filedocumented in this encounter [facility] on filedocumented in this encounter [facility] on filedocumented in this encounter [facility] on filedocumented in this encounter [facility]* Attachments The following attachments cannot be sent through Care Everywhere. * Yearly Physical for Adults (Luxembour[employer]) documented in this encounterProMedica Health SystemInstructionsNot on file documented in this [facility] Summary Purpose Family History No Family History Records FoundNo Family History Records FoundNo Family History Records FoundNo Family History Records FoundNo Family History Records Found Advance Directives Documents on File Type Date Recorded Patient Inspector Paper Products Expl anation Living Will 08/06/2021 1:39 PM [place] Durable Power of Molding Engineer 08/06/2021 1:39 PM POA Date Activated Date Inactivated Comments 08/16/2021 11:50 AM 08/17/2021 11:53 AM Latest Code Status on File Code Status Date Activated Date Inactivated Comments Full Code 08/16/2021 11:50 AM 08/17/2021 11:53 AM Documents on File Type Date Recorded Patient Inspector Paper Products Expl anation Living Will 08/06/2021 1:39 PM [place]IV[place] Durable Power of Molding Engineer 08/06/2021 1:39 PM POA Date Activated Date Inactivated Comments 08/16/2021 11:50 AM 08/17/2021 11:53 AM Additional Source Comments INFORMATION SOURCE (unrecogn ized section and content) DATE CREATED AUTHOR 06/03/2020 [facility] DATE CREATED AUTHOR AUTHOR'S ORGANIZ ATION 09/11/2022 [facility] DATE CREATED AUTHOR AUTHOR'S ORGANIZ ATION 07/16/2024 [facility] DATE CREATED AUTHOR AUTHOR'S ORGANIZ ATION 07/27/2024 [facility] DATE CREATED AUTHOR AUTHOR'S ORGANIZ ATION 08/20/2024 [facility] Reason for Visit (unrecogniz ed section and content) Reason Comments Med Refill Reason Comments Annual Exam Care Teams (unrecognized sec tion and content) Ship'S Officer Relationship Specialty Start Date End Date Drea Roa MD [address] [place] [address] PCP - General Family [facility] 05/09/22 Ship'S Officer Relationship Specialty Start Date End Date Drea Roa MD [address] [place] [address] PCP - General Family Medicine 05/09/22 Ship'S Officer Relationship Specialty Start Date End Date Drea Roa MD [address] [place] [address] PCP - General Family Medicine 05/09/22 Ship'S Officer Relationship Specialty Start Date End Date Drea Roa MD [address] [place] [address] PCP - General Family Medicine 05/09/22 Ship'S Officer Relationship Specialty Start Date End Date Drea Roa MD [address] [place] [address] PCP - General Family Medicine 05/09/22 Ship'S Officer Relationship Specialty Start Date End Date Drea Roa MD [address] [place] [address] PCP - General Family Medicine 05/09/22 Ship'S Officer Relationship Specialty Start Date End Date Drea Roa MD [address] [place] [address] PCP - General Family Medicine 05/09/22 Ship'S Officer Relationship Specialty Start Date End Date Drea Roa MD [address] [place] [address] PCP - General Family Medicine 05/09/22 Ship'S Officer Relationship Specialty Start Date End Date Drea Roa MD [address] [address] PCP - [facility] Medicine 05/09/22 Ship'S Officer Relationship Specialty Start Date End Date Drea Roa MD [address] [address] PCP - General Family Medicine 05/09/22 FOR RECORDS PERTAINING TO PATIENTS WHO ARE [...] BE BASED ON THE PRIMARY CLINICAL RECORDS. [facility]. provides no warranty or guarantee of the accuracy or completeness of information in this document.
--- NOTE | 2024-10-08 08:26 | MM_ITS ---
Patient Name: KEITH PELAEZ MR#: [id number] : 1960 Exam Date: 10/08/2024 Ordering Doctor: DR DREA STEVENS RADIOLOGY REPORT PROCEDURE: MM TOMOSYNTHESIS SCREENING BI COMPARISON: MM TOMOSYNTHESIS DIAGNOSTIC BI, 03/19/2024. MM TOMOSYNTHESIS SCREENING BI, 08/22/2023. MG MAMM LT DIAG FU, 09/06/2022. MG MAMM SCREEN 3D LARY CAD, 08/13/2022. INDICATIONS: Screening Calculator Name NCI Breast Cancer Risk Assessment Tool 5 Year Breast Cancer Risk 2.50% Lifetime Breast Cancer Risk 9.40% Personal Breast Cancer No Personal Ovarian Cancer No Treatments None Family Cancers Grandmother-maternal with colon cancer at age ~60. LOCATION: [facility] BREAST COMPOSITION: The breasts are heterogeneously dense,which may obscure small masses. FINDINGS: DIAGNOSTIC CATEGORY 2--BENIGN FINDING. NO CHANGE FROM COMPARISON. RIGHT BREAST: No significant suspicious finding. There is a biopsy clip on the right. There is a similar focal asymmetry 3rd LEFT BREAST: No significant suspicious finding. There are a few punctate benign-appearing calcifications. RECOMMENDATIONS: ROUTINE MAMMOGRAM AND CLINICAL EVALUATION IN 12 MONTHS. PLEASE NOTE: A NORMAL MAMMOGRAM DOES NOT EXCLUDE THE POSSIBILITY OF BREAST CANCER. A CLINICALLY SUSPICIOUS PALPABLE LUMP SHOULD BE BIOPSIED. Dictated by: Chi Simmons MD on 10/08/2024 at 13:49 Approved by: Chi Simmons MD on 10/08/2024 at 13:54
== END 2024-10-08 07:58 | disposition home or self-care (01) ==
LOC: MAMMO 07:57
PROVIDERS: PCP Family Medicine; Visit Provider Family Medicine
DX: Z12.31 Encounter for screening mammogram for malignant neoplasm of breast (principal); Z80.0 Family history of malignant neoplasm of digestive organs
CPT/HCPCS: 77063; 77067

== ENCOUNTER 2024-10-11 07:53 | Outpatient (OUT) | payer MEDICARE, SELFPAY ==
--- OUTSIDE RECORDS SUMMARY | 2024-10-11 08:14 | XMS_ITS | CCD ---
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 Phone DEFRANCE, DR SHEPARD Admitting [...] Unavailable Defrance Drea ALBARRAN Primary Care Provider [phone] Medications Current Medications Medication Drug Class(es) Dates [...] therapy) Start: 08-07-2023 take 1 capsule by [facility] three times daily as needed for [...] 07-26-20 ABSOLUTE BASOPHIL 0.1 X10E9/L Normal 0.0-0.2 [facility] Comment on above: Performed By: #### C BCA, CMP, 90942-1, THYR, 36274-9 #### [facility] ([id number]) [address], [address] [place] [address] ABSOLUTE NEUTROPHIL 4.3 X10E9/L Normal 1.5-6.6 [facility] Comment on above: Performed By: #### C BCA, CMP, 48503-6, THYR, 74918-6 #### [facility] ([id number]) [address], [address] [place] [address] Basophils/100 WBC (Bld) 0.7 % Normal [facility] Comment on above: Performed By: #### C BCA, CMP, 16093-8, THYR, 46971-3 #### [facility] ([id number]) [address], [address] [place] [address] Eosinophils (Bld) [#/Vol] 0.2 10*3/uL Normal 0.0-0.4 [facility] Comment on above: Performed By: #### C BCA, CMP, 97373-6, THYR, 68257-5 #### [facility] ([id number]) [address] [address] [place] [address] Eosinophils/100 WBC (Bld) 2.5 % Normal [facility] Comment on above: Performed By: #### C BCA, CMP, 00034-4, THYR, 47621-6 #### [facility] ([id number]) [address] [address] [place] [address] Erythrocyte distribution width (RBC) [Ratio] 13.6 % Normal 11.5-15.0 [facility] Comment on above: Performed By: #### C BCA, CMP, 09443-4, THYR, 06730-3 #### [facility] ([id number]) [address] [address] [place] [address] Hematocrit (Bld) [Volume fraction] 39.8 % Normal 35-47 [facility] Comment on above: Performed By: #### C BCA, CMP, 10141-8, THYR, 73236-4 #### [facility] ([id number]) [address] [address] [place] [address] Hemoglobin (Bld) [Mass/Vol] 13.2 g/dL Normal 11.7-15.5 [facility] Comment on above: Performed By: #### C BCA, CMP, 35974-7, THYR, 30124-0 #### [facility] ([id number]) [address] [address] [place] [address] Lymphocytes (Bld) [#/Vol] 1.8 10*3/uL Normal 1.0-3.5 [facility] Comment on above: Performed By: #### C BCA, CMP, 21261-4, THYR, 80062-7 #### [facility] ([id number]) [address] [address] [place] [address] Lymphocytes/100 WBC (Bld) 26.2 % Normal [facility] Comment on above: Performed By: #### C BCA, CMP, 97155-0, THYR, 48930-8 #### [facility] ([id number]) [address], [address] [place] [address] MCH (RBC) [Entitic mass] 30.2 pg Normal 27-34 [facility] Comment on above: Performed By: #### C BCA, CMP, 16665-9, THYR, 08446-5 #### [facility] ([id number]) [address], [address] [place] [address] MCHC (RBC) [Mass/Vol] 33.1 g/dL Normal 32-36 [facility] Comment on above: Performed By: #### C BCA, CMP, 44073-8, THYR, 90727-0 #### [facility] ([id number]) [address], [address] [place] [address] MCV (RBC) [Entitic vol] 91 fL Normal 80-100 [facility] Comment on above: Performed By: #### C BCA, CMP, 99090-3, THYR, 93394-0 #### [facility] ([id number]) [address], [address] [place] [address] Monocytes (Bld) [#/Vol] 0.6 10*3/uL Normal 0-0.9 [facility] Comment on above: Performed By: #### C BCA, CMP, 83254-8, THYR, 79263-4 #### [facility] ([id number]) [address], [address] [place] [address] Monocytes/100 WBC (Bld) 9.0 % Normal [facility] Comment on above: Performed By: #### C BCA, CMP, 75205-3, THYR, 96258-9 #### [facility] ([id number]) [address], [address] [place] [address] Neutrophils/100 WBC (Bld) 61.6 % Normal [facility] Comment on above: Performed By: #### C BCA, CMP, 63546-9, THYR, 16640-1 #### [facility] ([id number]) [address], [address] [place] [address] Platelet mean volume (Bld) [Entitic vol] 9.1 fL Normal 7-12 [facility] Comment on above: Performed By: #### C BCA, CMP, 78378-8, THYR, 71280-7 #### [facility] ([id number]) [address], [address] [place] [address] Platelets (Bld) [#/Vol] 245 10*3/uL Normal 150-450 [facility] Comment on above: Performed By: #### C BCA, CMP, 82775-8, THYR, 79766-5 #### [facility] ([id number]) [address] [address] [place] [address] RBC COUNT 4.36 X10E12/L Normal 3.80-5.20 [facility] Comment on above: Performed By: #### C BCA, CMP, 07514-6, THYR, 90202-9 #### [facility] ([id number]) [address] [address] [place] [address] WBC (Bld) [#/Vol] 6.9 10*3/uL Normal 4.0-11.0 [facility] Comment on above: Performed By: #### C BCA, CMP, 69606-7, THYR, 71361-4 #### [facility] ([id number]) [address], [address] [place] [address] COMPREHENSIVE METABOLIC PANE Judah 07-26-2024 Albumin [Mass/Vol] 4.2 g/dL Normal 3.2-5.3 [facility] Comment on above: Performed By: #### C PHYLLIS, 85344-1, CBCA #### [facility] ([id number]) [address], [address] [place] [address] ALP [Catalytic activity/Vol] 49 U/L Normal 39-130 [facility] Comment on above: Performed By: #### C PHYLLIS, 43810-6, CBCA #### [facility] ([id number]) [address], [address] [place] [address] ALT [Catalytic activity/Vol] 10 U/L Normal 0-31 [facility] Comment on above: Performed By: #### Daisy FERGUSON, 99135-0, CBCA #### [facility] ([id number]) [address], [address] [place] [address] Anion gap [Moles/Vol] 9 mmol/L Normal 5-15 [facility] Comment on above: Performed By: #### Daisy FERGUSON, 06880-7, CBCA #### [facility] ([id number]) [address], [address] [place] [address] AST [Catalytic activity/Vol] 16 U/L Normal 0-41 [facility] Comment on above: Performed By: #### Daisy FERGUSON, 86019-5, CBCA #### [facility] ([id number]) [address], [address] [place] [address] Bilirubin [Mass/Vol] 0.4 mg/dL Normal 0.3-1.2 [facility] Comment on above: Performed By: #### Daisy FERGUSON, 86695-9, CBCA #### [facility] ([id number]) [address], [address] [place] [address] Calcium [Mass/Vol] 9.1 mg/dL Normal 8.5-10.5 [facility] Comment on above: Performed By: #### Daisy FERGUSON 46225-0, CBCA #### [facility] ([id number]) [address], [address] [place] [address] Chloride [Moles/Vol] 104 mmol/L Normal 98-109 [facility] Comment on above: Performed By: #### Daisy FERGUSON, 05339-2, CBCA #### [facility] ([id number]) [address], [address] [place] [address] CO2 [Moles/Vol] 26 mmol/L Normal 22-32 [facility] Comment on above: Performed By: #### Daisy FERGUSON 00128-2, CBCA #### [facility] ([id number]) [address], [address] [place] [address] Creatinine [Mass/Vol] 0.72 mg/dL Normal 0.40-1.00 [facility] Comment on above: Result Comment: METH OD TRACEABLE TO IDMS STANDARD Performed By: #### Daisy FERGUSON 93864-2, CBCA #### [facility] ([id number]) [address], [address] [place] [address] eGFR (CKD-EPI) NON-RACE DEPENDENT >90 Normal >59 [facility] Comment on above: Result Comment: Reported eGFR is based on the CKD-EPI 1 equation that does not use a race coefficient. Performed By: #### Daisy FERGUSON 43441-6, CBCA #### [facility] ([id number]) [address], [address] [place] [address] Glucose [Mass/Vol] 85 mg/dL Normal 65-99 [facility] Comment on above: Performed By: #### Daisy FERGUSON 95242-2, CBCA #### [facility] ([id number]) [address], [address] [place] [address] Potassium [Moles/Vol] 4.2 mmol/L Normal 3.5-5.0 [facility] Comment on above: Performed By: #### Daisy FERGUSON 08367-7, CBCA #### [facility] ([id number]) [address], [address] [place] [address] Protein [Mass/Vol] 7.0 g/dL Normal 6.0-8.0 [facility] Comment on above: Performed By: #### Daisy FERGUSON, 55652-5, CBCA #### [facility] ([id number]) [address], [address] [place] [address] Sodium [Moles/Vol] 139 mmol/L Normal 134-146 [facility] Comment on above: Performed By: #### Daisy FERGUSON, 35863-1, CBCA #### [facility] ([id number]) [address], [facility] [facility] [address] [place] [address] Urea nitrogen [Mass/Vol] 14 mg/dL Normal 5-27 [facility] Comment on above: Performed By: #### Daisy FERGUSON, 75069-9, CBCA #### [facility] ([id number]) [address], [address] [place] [address] Lipid 1996 panelon 4 Cholesterol [Mass/Vol] 171 mg/dL Normal 150-200 [facility] Comment on above: Performed By: #### Daisy FERGUSON, 47786-9, CBCA #### [facility] ([id number]) [address], [facility] [facility] [address] [place] [address] Cholesterol in HDL [Mass/Vol] 42 mg/dL Normal >39 [facility] Comment on above: Result Comment: HDL <40 mg/dL - High Risk HDL > or = 40mg/dL- Desirable HDL >60 mg/dL - Negative Risk Performed By: #### Daisy FERGUSON, 86690-4, CBCA #### [facility] ([id number]) [address], [address] [place] [address] Cholesterol in LDL [Mass/Vol] 102 mg/dL Normal <130 [facility] Comment on above: Result Comment: LDL <100 mg/dL - Desirable LDL >160 mg/dL - High Risk Performed By: #### C PHYLLIS, 11477-0, CBCA #### [facility] ([id number]) [address], [facility] [facility] [address] [place] [address] Cholesterol in VLDL [Mass/Vol] 27 mg/dL Normal 0-30 [facility] Comment on above: Performed By: #### Daisy FERGUSON, 31071-4, CBCA #### [facility] ([id number]) [address], [facility] [facility] [address] [place] [address] CHOLESTEROL:HDL 4.1 Normal 1.0-5.0 [facility] Comment on above: Performed By: #### Daisy FERGUSON, 80599-6, CBCA #### [facility] ([id number]) [address], [facility] [facility] [address] [place] [address] Triglyceride [Mass/Vol] 137 mg/dL Normal 27-150 [facility] Comment on above: Performed By: #### Daisy FERGUSON, 55896-8, CBCA #### [facility] ([id number]) [address], [facility] [facility] [address] [place] [address] XR SPINE SCOLIOSIS 1 VIEWon 12-17-2023 XR [...] Hipolito Trujillo on 12/17/2023 11:15 AM Normal [facility] XR PELVIS 1 OR 2 [...] Ibanez MD on 12/15/2023 9:32 PM Normal [facility] XR ABDOMEN AP 1 VWon [...] Hughes MD on 09/12/2023 10:00 AM Normal [facility] CBC AND AUTO DIFFon 09-04-19 24 ABSOLUTE BASOPHIL 0.0 X10E9/L Normal 0.0-0.2 [facility] Comment on above: Performed By: #### C BCA, CMP, 01765-8, THYR, 31260-0 #### [facility] ([id number]) [address], [address] [place] [address] ABSOLUTE NEUTROPHIL 4.1 X10E9/L Normal 1.5-6.6 [facility] Comment on above: Performed By: #### C BCA, CMP, 61984-9, THYR, 16755-3 #### [facility] ([id number]) [address], [address] [place] [address] Basophils/100 WBC (Bld) 0.4 % Normal [facility] Comment on above: Performed By: #### C BCA, CMP, 00126-1, THYR, 56732-5 #### [facility] ([id number]) [address], [address] [place] [address] Eosinophils (Bld) [#/Vol] 0.2 10*3/uL Normal 0.0-0.4 [facility] Comment on above: Performed By: #### C BCA, CMP, 13322-4, THYR, 16437-3 #### [facility] ([id number]) [address], [address] [place] [address] Eosinophils/100 WBC (Bld) 3.4 % Normal [facility] Comment on above: Performed By: #### C BCA, CMP, 31240-8, THYR, 16311-4 #### [facility] ([id number]) [address] [address] [place] [address] Erythrocyte distribution width (RBC) [Ratio] 13.8 % Normal 11.5-15.0 [facility] Comment on above: Performed By: #### C BCA, CMP, 04937-1, THYR, 49564-0 #### [facility] ([id number]) [address], [address] [place] [address] Hematocrit (Bld) [Volume fraction] 39.0 % Normal 35-47 [facility] Comment on above: Performed By: #### C BCA, CMP, 65404-6, THYR, 61693-3 #### [facility] ([id number]) [address], [address] [place] [address] Hemoglobin (Bld) [Mass/Vol] 12.9 g/dL Normal 11.7-15.5 [facility] Comment on above: Performed By: #### C BCA, CMP, 24432-2, THYR, 82203-3 #### [facility] ([id number]) [address], [address] [place] [address] Lymphocytes (Bld) [#/Vol] 1.9 10*3/uL Normal 1.0-3.5 [facility] Comment on above: Performed By: #### C BCA, CMP, 05931-8, THYR, 03098-4 #### [facility] ([id number]) [address], [address] [place] [address] Lymphocytes/100 WBC (Bld) 28.0 % Normal [facility] Comment on above: Performed By: #### C BCA, CMP, 20239-6, THYR, 20485-6 #### [facility] ([id number]) [address], [address] [place] [address] MCH (RBC) [Entitic mass] 29.7 pg Normal 27-34 [facility] Comment on above: Performed By: #### C BCA, CMP, 08092-0, THYR, 85738-2 #### [facility] ([id number]) [address], [address] [place] [address] MCHC (RBC) [Mass/Vol] 33.1 g/dL Normal 32-36 [facility] Comment on above: Performed By: #### C BCA, CMP, 09625-7, THYR, 71584-3 #### [facility] ([id number]) [address], [address] [place] [address] MCV (RBC) [Entitic vol] 90 fL Normal 80-100 [facility] Comment on above: Performed By: #### C BCA, CMP, 20849-7, THYR, 21433-7 #### [facility] ([id number]) [address], [address] [place] [address] Monocytes (Bld) [#/Vol] 0.6 10*3/uL Normal 0-0.9 [facility] Comment on above: Performed By: #### C BCA, CMP, 62532-8, THYR, 52653-8 #### [facility] ([id number]) [address], [address] [place] [address] Monocytes/100 WBC (Bld) 8.8 % Normal [facility] Comment on above: Performed By: #### Daisy BCA, CMP, 99813-0, THYR, 17080-5 #### [facility] ([id number]) [address], [address] [place] [address] Neutrophils/100 WBC (Bld) 59.4 % Normal [facility] Comment on above: Performed By: #### C BCA, CMP, 01736-0, THYR, 04425-4 #### [facility] ([id number]) [address], [address] [place] [address] Platelet mean volume (Bld) [Entitic vol] 8.7 fL Normal 7-12 [facility] Comment on above: Performed By: #### C BCA, CMP, 93113-9, THYR, 04837-6 #### [facility] ([id number]) [address], [address] [place] [address] Platelets (Bld) [#/Vol] 248 10*3/uL Normal 150-450 [facility] Comment on above: Performed By: #### C BCA, CMP, 02289-6, THYR, 92603-3 #### [facility] ([id number]) [address], [address] [place] [address] RBC COUNT 4.36 X10E12/L Normal 3.80-5.20 [facility] Comment on above: Performed By: #### C BCA, CMP, 57532-8, THYR, 53473-2 #### [facility] ([id number]) [address], [address] [place] [address] WBC (Bld) [#/Vol] 6.9 10*3/uL Normal 4.0-11.0 [facility] Comment on above: Performed By: #### C BCA, CMP, 48157-0, THYR, 81196-6 #### [facility] ([id number]) [address], [address] [place] [address] COMPREHENSIVE METABOLIC PANE Judah 09-04-2023 Albumin [Mass/Vol] 4.3 g/dL Normal 3.2-5.3 [facility] Comment on above: Performed By: #### C BCA, CMP, 59369-2, THYR, 66478-2 #### [facility] ([id number]) [address], [address] [place] [address] ALP [Catalytic activity/Vol] 51 U/L Normal 39-130 [facility] Comment on above: Performed By: #### C BCA, CMP, 02414-9, THYR, 88493-8 #### [facility] ([id number]) [address], [address] [place] [address] ALT [Catalytic activity/Vol] 13 U/L Normal 0-31 [facility] Comment on above: Performed By: #### C BCA, CMP, 12480-0, THYR, 56907-5 #### [facility] ([id number]) [address], [address] [place] [address] Anion gap [Moles/Vol] 6 mmol/L Normal 5-15 [facility] Comment on above: Performed By: #### C BCA, CMP, 15807-0, THYR, 87690-9 #### [facility] ([id number]) [address], [address] [place] [address] AST [Catalytic activity/Vol] 16 U/L Normal 0-41 [facility] Comment on above: Performed By: #### C BCA, CMP, 63090-0, THYR, 54972-8 #### [facility] ([id number]) [address], [address] [place] [address] Bilirubin [Mass/Vol] 0.4 mg/dL Normal 0.3-1.2 [facility] Comment on above: Performed By: #### C BCA, CMP, 48369-6, THYR, 72520-7 #### [facility] ([id number]) [address], [address] [place] [address] Calcium [Mass/Vol] 9.6 mg/dL Normal 8.5-10.5 [facility] Comment on above: Performed By: #### C BCA, CMP, 37773-2, THYR, 22526-4 #### [facility] ([id number]) [address], [address] [place] [address] Chloride [Moles/Vol] 100 mmol/L Normal 98-109 [facility] Comment on above: Performed By: #### C BCA, CMP, 19968-6, THYR, 64431-8 #### [facility] ([id number]) [address], [address] [place] [address] CO2 [Moles/Vol] 30 mmol/L Normal 22-32 [facility] Comment on above: Performed By: #### C BCA, CMP, 34861-5, THYR, 80057-9 #### [facility] ([id number]) [address], [address] [place] [address] Creatinine [Mass/Vol] 0.73 mg/dL Normal 0.40-1.00 [facility] Comment on above: Result Comment: METH OD TRACEABLE TO IDMS STANDARD Performed By: #### C BCA, CMP, 22487-9, THYR, 94476-6 #### [facility] ([id number]) [address], [address] [place] [address] eGFR (CKD-EPI) NON-RACE DEPENDENT >90 Normal >59 [facility] Comment on above: Result Comment: Reported eGFR is based on the CKD-EPI 2020 equation that does not use a race coefficient. Performed By: #### C BCA, CMP, 20684-3, THYR, 99913-3 #### [facility] ([id number]) [address], [address] [place] [address] Glucose [Mass/Vol] 98 mg/dL Normal 65-99 [facility] Comment on above: Performed By: #### C BCA, CMP, 60060-7, THYR, 21681-6 #### [facility] ([id number]) [address], [address] [place] [address] Potassium [Moles/Vol] 4.0 mmol/L Normal 3.5-5.0 [facility] Comment on above: Performed By: #### C BCA, CMP, 96237-0, THYR, 10183-4 #### [facility] ([id number]) [address], [address] [place] [address] Protein [Mass/Vol] 7.2 g/dL Normal 6.0-8.0 [facility] Comment on above: Performed By: #### C BCA, CMP, 81302-2, THYR, 94420-6 #### [facility] ([id number]) [address], [address] [place] [address] Sodium [Moles/Vol] 136 mmol/L Normal 134-146 [facility] Comment on above: Performed By: #### Daisy BCA, CMP, 35254-6, THYR, 83093-2 #### [facility] ([id number]) [address], [address] [place] [address] Urea nitrogen [Mass/Vol] 24 mg/dL Normal 5-27 [facility] Comment on above: Performed By: #### Daisy BCA, CMP, 21289-5, THYR, 49095-8 #### [facility] ([id number]) [address], [address] [place] [address] Lipid 1996 panelon 4 Cholesterol [Mass/Vol] 215 mg/dL High 150-200 [facility] Comment on above: Performed By: ###Enio Villa BCA, CMP, 91604-1, THYR, 55685-7 #### [facility] ([id number]) [address], [address] [place] [address] Cholesterol in HDL [Mass/Vol] 47 mg/dL Normal >39 [facility] Comment on above: Result Comment: HDL <40 mg/dL - High Risk HDL > or = 40mg/dL- Desirable HDL >60 mg/dL - Negative Risk Performed By: ###Enio Villa BCA, CMP, 88960-2, THYR, 26760-8 #### [facility] ([id number]) [address], [address] [place] [address] Cholesterol in LDL [Mass/Vol] 141 mg/dL High <130 [facility] Comment on above: Result Comment: LDL <100 mg/dL - Desirable LDL >160 mg/dL - High Risk Performed By: #### Daisy BCA, CMP, 03991-8, THYR, 03284-7 #### [facility] ([id number]) [address], [address] [place] [address] Cholesterol in VLDL [Mass/Vol] 27 mg/dL Normal 0-30 [facility] Comment on above: Performed By: #### C BCA, CMP, 54452-3, THYR, 13866-3 #### [facility] ([id number]) [address], [address] [place] [address] CHOLESTEROL:HDL 4.6 Normal 1.0-5.0 [facility] Comment on above: Performed By: #### C BCA, CMP, 80930-9, THYR, 50999-8 #### [facility] ([id number]) [address] [place] [address] Triglyceride [Mass/Vol] 134 mg/dL Normal 27-150 [facility] Comment on above: Performed By: #### C BCA, CMP, 04294-2, THYR, 46874-1 #### [facility] ([id number]) [address], [address] [place] [address] THYROID PROFILEon 09-04-2023 Free T4 [Mass/Vol] 0.67 ng/dL Normal 0.61-1.60 [facility] Comment on above: Performed By: #### C BCA, CMP, 47180-4, THYR, 43736-2 #### [facility] ([id number]) [address], [address] [place] [address] TSH 0.91 uIU/mL Normal 0.49-4.67 [facility] Comment on above: Performed By: #### C BCA, CMP, 20123-0, THYR, 94320-2 #### [facility] ([id number]) [address], [address] [place] [address] Vitamin D+Metabolites [Mass/ Vol]on 09-04-2023 VITAMIN D 25 HYD TOT 35.0 ng/mL Normal 30-100 [facility] Comment on above: Result Comment: Vitamin D status 25 [place] Vitamin D Deficiency <20 ng/mL Insufficiency 20-29 ng/mL Sufficiency 30-100 ng/mL Toxicity >100 ng/mL NOTE: A pediatric reference range has not been established by the tray server of this kit. The [place] [employer] recommends a Vitamin D level of = or >20ng/mL in infants and children. Performed By: #### C BCA, CMP, 16094-2, THYR, 47414-0 #### [facility] ([id number]) [address] [place] [address] MG MAMM LT DIAG FUon 023 MG MAMM LT DIAG FU Patient: SALMA PELAEZ Exam Date: 09/06/2022 : 1960 Gender:F Ordering : DR DREA ROA Admission #: [id number] Family : Order #: [id number] CLICK HERE TO VIEW EXAM RADIOLOGY REPORT [...] colon cancer at age 59. LOCATION: [facility] BREAST COMPOSITION: Heterogeneously dense,which may obscure [...] Jean M.D. on 09/06/2022 at 14:52 Normal [facility] US BREAST LEFT LIMITEDon US BREAST LEFT LIMITED Patient: SALMA PELAEZ Exam Date: 09/06/2022 : 1960 Gender:F Ordering : DR DREA ROA Admission #: [id number] Family : Order #: [id number] CLICK HERE TO VIEW EXAM RADIOLOGY REPORT [...] colon cancer at age 59. LOCATION: [facility] BREAST COMPOSITION: Heterogeneously dense,which may obscure [...] Jean M.D. on 09/06/2022 at 14:52 Normal [facility] MG MAMM SCREEN 3D LARY CADon 08-13-2022 MG MAMM SCREEN 3D LARY CAD Patient: SALMA PELAEZ Exam Date: 08/13/2022 : 1960 Gender:F Ordering : DR DREA ROA Admission #: [id number] Family : Order #: [id number] CLICK HERE TO VIEW EXAM RADIOLOGY REPORT PROCEDURE: MAMMOGRAM SCREENING 3D BILATERAL CAD COMPARISON: MG MAMM SCREEN LARY W CAD, 07/11/2020. MG MAMM SCREEN LARY W CAD, 07/07/2019. MAMMO LARY SCREEN, 07/13/2010. MG MAMM SCREEN 3D LARY CAD, 07/31/2021. INDICATIONS: Screening mammography Calculator Name [facility] Breast Cancer Risk Assessment Tool 5 Year Breast Cancer Risk 2.30% Lifetime Breast Cancer Risk 10.30% Personal Breast Cancer No Personal Ovarian Cancer No Treatments None Family Cancers Grandmother-maternal with colon cancer at age 60. LOCATION: [facility] BREAST COMPOSITION: Heterogeneously dense,which may obscure [...] M.D. on 08/15/2022 at 08:14 Normal [facility] [place] 06-03-2020 ALT No additional P-5'-P [Catalytic activity/Vol] 16 Int._Unit/L Normal 6-46 [facility] Comment on above: Performed By: #### 2 380536, 8339013, 43578026, 2469840, 6070815, 7795237, [id number] #### [facility] [address] [place] [address] Diane 06-03-2020 AST [Catalytic activity/Vol] 17 Int._Unit/L Normal 5-43 [facility] Comment on above: Performed By: #### 2 796870, 0181270, 81710344, 4415719, 6314665, 6364049, [id number] #### [facility] [address] [place] [address] [facility] 06-03-2020 Anion gap [Moles/Vol] 13 mmol/L Normal 6-16 [facility] Comment on above: Performed By: #### 2 799364, 5015869, 65778284, 2469237, 4590500, 1010203, [id number] #### [facility] [address] [place] [address] Calcium [Mass/Vol] 9.2 mg/dL Normal 8.9-11.1 [facility] Comment on above: Performed By: #### 2 942592, 1748463, 67843649, 0701622, 8227033, 7285889, [id number] #### [facility] [address] [place] [address] Chloride [Moles/Vol] 103 mmol/L Normal 101-111 [facility] Comment on above: Performed By: #### 2 943340, 4406336, 59106936, 5283472, 2796326, 0819986, 172402615 #### [facility] [address] [place] [address] CO2 [Moles/Vol] 29 mmol/L Normal 21-31 [facility] Comment on above: Performed By: #### 2 817491, 6385255, 58153547, 3908699, 5246908, 2564599, 776551044 #### [facility] [address] [place] [address] Creatinine [Mass/Vol] 0.6 mg/dL Normal 0.5-1.3 [facility] Comment on above: Performed By: #### 2 760572, 7269149, 96889429, 7602355, 0695650, 3912072, 289810445 #### [facility] [address] [place] [address] Glucose [Mass/Vol] 88 mg/dL Normal 55-199 [facility] Comment on above: Result Comment: If t his glucose result represents a fasting glucose, interpretation should refer to the following reference range: 55-99 mg/dL Performed By: #### 2 155560, 4951219, 83319520, 0675395, 1666897, 1178292, 266742900 #### [facility] [address] [place] [address] Potassium [Moles/Vol] 4.6 mmol/L Normal 3.5-5.3 [facility] Comment on above: Performed By: #### 2 255396, 0176542, 79977576, 0256091, 6761148, 1038458, 277794957 #### [facility] [address] [place] [address] Sodium [Moles/Vol] 140 mmol/L Normal 135-145 [facility] Comment on above: Performed By: #### 2 499478, 5349681, 00892755, 4720667, 5624525, 8589519, 501831353 #### [facility] [address] [place] [address] Urea nitrogen [Mass/Vol] 19 mg/dL Normal 5-21 [facility] Comment on above: Performed By: #### 2 032294, 9324255, 28927805, 2443620, 5198594, 6249849, 454883508 #### [facility] [address] [place] [address] Urea nitrogen/Creatinine [Mass ratio] 32 No Units High 10-20 [facility] Comment on above: Performed By: #### 2 200326, 2716911, 98131654, 7322031, 3688992, 0664265, 210933269 #### [facility] [address] [place] [address] CBC w/Indiceson 06-03-2020 Erythrocyte distribution width (RBC) [Ratio] 13.5 % Normal 10.9-14.2 [facility] Comment on above: Performed By: #### 2 432494, 0708216, 08436685, 7331033, 9822272, 1163646, 539557924 #### [facility] [address] [place] [address] Hematocrit (Bld) [Volume fraction] 41.7 % Normal 34.0-46.0 [facility] Comment on above: Performed By: #### 2 862582, 4284991, 59808475, 2835537, 2549384, 5647910, 714004861 #### [facility] [address] [place] [address] Hemoglobin (Bld) [Mass/Vol] 14.2 g/dL Normal 12.0-16.0 [facility] Comment on above: Performed By: #### 2 511600, 9958135, 58760667, 6135698, 1168174, 8189862, 423275685 #### [facility] [address] [place], [place] [address] MCH (RBC) [Entitic mass] 30.7 pg Normal 27.0-34.0 [facility] Comment on above: Performed By: #### 2 908316, 0340395, 41844686, 3434367, 8871342, 7363765, 772297770 #### [facility] [address] [place] [address] MCHC (RBC) [Mass/Vol] 34.0 g/dL Normal 31.4-36.0 [facility] Comment on above: Performed By: #### 2 865466, 5659305, 01570592, 9523927, 5865654, 3211290, 463692422 #### [facility] [address] [place] [address] MCV (RBC) [Entitic vol] 90.3 fL Normal 80.0-100.0 [facility] Comment on above: Performed By: #### 2 571340, 6632564, 64349036, 5500877, 0646104, 5342574, 156278290 #### [facility] [address] [place] [address] Platelet mean volume (Bld) [Entitic vol] 8.5 fL Normal 6.4-10.8 [facility] Comment on above: Performed By: #### 2 134051, 6535109, 51258501, 1359905, 5956056, 8584846, 460591112 #### [facility] [address] [place] [address] Platelets (Bld) [#/Vol] 258.0 E9/L Normal 150.0-500.0 [facility] Comment on above: Performed By: #### 2 540930, 4942877, 72183097, 5322451, 8602547, 2413906, 891243929 #### [facility] [address] [place] [address] RBC (Bld) [#/Vol] 4.6 E12/L Normal 4.3-5.9 [facility] Comment on above: Performed By: #### 2 439343, 5040626, 21531372, 1885629, 8404229, 4671878, 649429078 #### [facility] [address] [place] [address] WBC corrected for nucl RBC Auto (Bld) [#/Vol] 8.6 E9/L Normal 4.0-11.0 [facility] Comment on above: Performed By: #### 2 328756, 3768126, 64709027, 8349694, 0816375, 9359103, 789438666 #### [facility] [address] [place] [address] Lipid Panelon 06-03-2020 Cholesterol [Mass/Vol] 172 mg/dL Normal 120-200 [facility] Comment on above: Performed By: #### 2 898179, 0752677, 65254093, 4329364, 2521224, 4890010, 159656778 #### [facility] [address] [place] [address] Cholesterol in HDL [Mass/Vol] 53 mg/dL [facility] Comment on above: Result Comment: HDL > or equal to 60 mg/dL: Low cardiovascular risk HDL < 40 mg/dL : High cardiovascular risk Performed By: #### 2 107552, 7164159, 64443400, 2249613, 4345395, 1272194, 182274902 #### [facility] [address] [place] [address] Cholesterol in LDL [Mass/Vol] 104 mg/dL Normal <=129 [facility] Comment on above: Performed By: #### 2 379269, 2271943, 78432056, 6439512, 2642868, 1290042, 661979227 #### [facility] [address] [place] [address] Cholesterol in VLDL [Mass/Vol] 18 mg/dL Normal 7-40 [facility] Comment on above: Performed By: #### 2 459321, 4553581, 87594505, 4503701, 8316509, 4392731, 792490701 #### [facility] [address] [place] [address] Triglyceride [Mass/Vol] 88 mg/dL Normal <=149 [facility] Comment on above: Performed By: #### 2 355174, 2888845, 92498691, 0020946, 1352229, 9944037, 095431539 #### [facility] [address] [place] [address] Vitamin D 25 Hydroxyon 06-03 Calcidiol [Mass/Vol] 32.2 ng/mL Normal 30.0-100.0 [facility] Comment on above: Result Comment: Vit lopez D deficiency has been defined as a level of serum 25-OH vitamin D less than 20 ng/mL (1,2) by the [place] [employer] and an Endocrine Society practice guideline. The Endocrine Society further defined vitamin D insufficiency as a level between 21 and 29 ng/mL (2). 1. IOM ([place] [employer]). 2010. Dietary reference intakes for calcium and D. [place]: The National Academies Press. 2. Holick MF, Meri NC, Krissy PIERCE, et al. Evaluation, treatment, and prevention of vitamin D deficiency: an Endocrine Society clinical practice guideline. JCEM. 2010; 96 (7):1911-30. Performed By: #### 2 724737, 8314511, 70066198, 6776536, 4735618, 9092981, 907083305 #### [facility] [address] [place] [address] eGFRon 06-03-2020 GFR/1.73 sq M predicted among blacks MDRD (S/P/Bld) [Vol rate/Area] mL/min/{1.73_m2} Normal >=59 [facility] Comment on above: Order Comment: Order added by Discern Expert. Result Comment: eGFR is race adjusted. AA=. Performed By: #### 2 049653, 8886047, 13585495, 2582195, 6092890, 3577179, 954684469 #### [facility] [address] [place] [address] GFR/1.73 sq M predicted among non-blacks MDRD (S/P/Bld) [Vol rate/Area] mL/min/{1.73_m2} Normal >=59 [facility] Comment on above: Order Comment: Order added by Discern Expert. Result Comment: Mill Attendant anh kidney disease could be indicated at eGFR's of less than 60 mL/min/1.73m2. Kidney failure is indicated at less than 15 mL/min/1.73m2. Performed By: #### 2 932523, 6937831, 01041028, 8490787, 7112105, 3758454, 585543350 #### [facility] [address] [place] [address] Vital Signs Date Time Vital Sign Value Performing Clinician Alexandr matamoros 07-14-2024 07:33-0500 Body height 172.7 cm Drea Roa MD Work Phone: [facility] 07-14-2024 07:33-0500 Body mass index (BMI) [Ratio] 28.89 kg/m2 Drea Roa MD Work Phone: [facility] 07-14-2024 07:33-0500 Body temperature 97.9 [degF] Drea Roa MD Work Phone: [facility] 07-14-2024 07:33-0500 Body weight 86.18 kg Drea Roa MD Work Phone: [facility] 07-14-2024 07:33-0500 Diastolic blood pressure 88 mm[Hg] Drea Roa MD Work Phone: [facility] 07-14-2024 07:33-0500 Respiratory rate 16 /min Drea Roa MD Work Phone: [facility] 07-14-2024 07:33-0500 Systolic blood pressure 140 mm[Hg] Drea Roa MD Work Phone: [facility] Encounters Encounter Date Encounter Type Care Provider Facility Start: 10-07-2024 End: 10-07-2024 Orders Only Drea Roa MD Work Phone: [facility] Comment on above: Levoscoliosis Start: 09-06-2024 End: 09-06-2024 Refill Drea Roa MD Work Phone: [facility] Start: 07-26-2024 End: 07-26-2024 ambulatory DREA ROA [facility] Start: 07-22-2024 End: 07-22-2024 ambulatory DREA ROA [facility] Start: 07-22-2024 Encounter for genera l adult medical examination without abnormal findings DREA ROA [facility] Start: 07-14-2024 End: 07-14-2024 Patient encounter status Drea Roa MD Work Phone: [facility] Start: 07-14-2024 End: 07-14-2024 Periodic preventive med est patient 40-64yrs Drea Roa MD Work Phone: [facility] Comment on above: Routine general medi mario examination at a health care facility (Primary Dx); Encounter for screening mammogram for malignant neoplasm of breast; Levoscoliosis; Trigger finger of left hand, unspecified finger Start: 07-14-2024 End: 07-14-2024 [facility] Start: 07-14-2024 Encounter for genera l adult medical examination without abnormal findings [facility] Start: 07-07-2024 End: 07-07-2024 Orders Only Drea Roa MD Work Phone: [facility] Comment on above: Acute cough (Primary Dx) Start: 07-06-2024 End: 07-06-2024 Orders Only Drea Roa MD Work Phone: [facility] Start: 04-30-2024 End: 04-30-2024 Orders Only Drea Roa MD Work Phone: [facility] Comment on above: Rheumatoid arthritis , erosive, seronegative ([facility] Start: 03-08-2024 End: 03-08-2024 Orders Only Drea Roa MD Work Phone: [facility] Comment on above: Abnormal mammogram o f both breasts (Primary Dx) Start: 03-05-2024 End: 03-05-2024 Refill Drea Roa MD Work Phone: [facility] Start: 01-29-2024 End: 01-29-2024 Orders Only Drea Roa MD Work Phone: [facility] Start: 12-15-2023 End: 12-15-2023 ambulatory DREA ROA [facility] Start: 11-14-2023 Orders Only Drea gomez MD Work Phone: [facility] Start: 10-16-2023 Telephone encounter Drea Sam MD Work Phone: [facility] Start: 09-29-2023 Orders Only Drea gomez MD Work Phone: [facility] Comment on above: Rheumatoid arthritis , erosive, seronegative ([facility]) Start: 09-11-2023 Refill Drea gomez MD Work Phone: [facility] Start: 09-11-2023 End: 09-11-2023 ambulatory AGUSTO BELL [facility] Start: 09-04-2023 End: 09-04-2023 ambulatory DREA ROA [facility] Start: 09-04-2023 Encounter for genera l adult medical examination without abnormal findings DREA ROA [facility] Start: 08-22-2023 Refill Drea gomez MD Work Phone: [facility] Start: 08-07-2023 Orders Only Drea gomez MD Work Phone: [facility] Start: 09-06-2022 End: 09-07-[address] [...] Adult BMI Screening Adult BMI Screen ing [facility] Start: 07-14-2025 End: 07-14-2025 DBT Breast - bilateral screening Mammography screening bilateral with CAD Imaging Routine Encounter for screening mammogram for malignant neoplasm of breast Expected: 07/14/2025 (Approximate), Expires: 07/14/2025 [facility] Work Phone: Comment on above: Expected: 07/14/2025 (Approximate), Expires: 07/14/2025 Start: 07-14-2025 Depression Screening Depression Scre ening [facility] Start: 07-14-2025 Tobacco Screening Tobacco Screening [facility] [employer] [facility] Start: 03-19-2025 Screening for malign ant neoplasm of breast Mammogram [facility] Start: 2024 Fall Risk Screening Fall Risk Screen ing [facility] [employer] [facility] Start: 08-22-2024 Screening for malign ant neoplasm of breast Mammogram [facility] [employer] [facility] Start: 07-14-2024 End: 07-14-2025 CBC W Auto Differential panel - Blood CBC auto differential Lab Routine Routine general medical examination at a health care facility Expected: 07/14/2024, Expires: 07/14/2025 [facility] [employer] [facility] Comment on above: Expected: 07/14/2024 , Expires: 07/14/2025 Start: 07-14-2024 End: 07-14-2025 Comprehensive metabolic 2000 panel - Serum or Plasma Comprehensive metabolic panel Lab Routine Routine general medical examination at a health care facility Expected: 07/14/2024, Expires: 07/14/2025 [facility] [employer] [facility] Comment on above: Expected: 07/14/2024 , Expires: 07/14/2025 Start: 07-14-2024 End: 07-14-2025 DXA Skeletal system Views for bone density Dexa scan central skeletal Imaging Routine Routine general medical examination at a health care facility Expected: 07/14/2024, Expires: 07/14/2025 [facility] [employer] Comment on above: Expected: 07/14/2024 , Expires: 07/14/2025 Start: 07-14-2024 End: 07-14-2025 Lipid 1996 panel - Serum or Plasma Lipid profile Lab Routine Routine general medical examination at a health care facility Expected: 07/14/2024, Expires: 07/14/2025 [email or web address] Comment on above: Expected: 07/14/2024 , Expires: 07/14/2025 Start: 07-14-2024 End: 07-14-2025 XR Thoracic and lumbar spine for scoliosis single view X-ray spine scoliosis 1 view Imaging Routine Levoscoliosis Expected: 07/14/2024, Expires: 07/14/2025 [facility] Comment on above: Expected: 07/14/2024 , Expires: 07/14/2025 Start: 07-14-2024 End: 07-14-2024 Patient encounter procedure 07/14/2024 8:00 AM EST Office Visit [facility] [address] [place] [id number] Drea Roa MD [address] [place] [address] [facility] Start: 07-11-2024 Adult BMI Screening Adult BMI Screen ing [facility] Start: 07-11-2024 Tobacco Screening Tobacco Screening [facility] Start: 07-06-2024 End: 07-06-2024 Patient encounter procedure 07/06/2024 8:00 AM EST Office Visit [facility] [address] [id number] Drea Roa MD [address] [place] [address] [facility] Start: 04-11-2024 COVID-19 Vaccine ( season) COVID-19 Vaccine ( season) [facility] Start: 04-11-2024 COVID-19 Vaccine ( season) COVID-19 Vaccine ( season) [facility] Start: 04-11-2024 Influenza vaccination Influenza Vacc ine [facility] Start: 03-08-2024 End: 03-08-2025 US Breast - bilateral limited Ultrasound breast limited bilateral Imaging Routine Abnormal mammogram of both breasts Expected: 03/08/2024, Expires: 03/08/2025 [facility] Work Phone: Comment on above: Expected: 03/08/2024 , Expires: 03/08/2025 Start: 09-06-2023 Screening for malign ant neoplasm of breast Mammogram [facility] Start: 07-10-2023 Depression Screening Depression Scre ening [facility] Start: 04-11-2023 COVID-19 Vaccine ( season) COVID-19 Vaccine ( season) [facility] Start: 2009 Administration of varicella zoster vaccine Zoster (Shingles) Vaccine (1 of 2) [facility] Start: 1980 Screening for malign ant neoplasm of cervix Pap Smear [facility] Start: 1978 DTaP,Tdap and Td Vaccines (1 - Tdap) DTaP,Tdap and Td Vaccines (1 - Tdap) [facility] Start: 1977 Adult BMI Follow Up Plan Adult BMI Follow Up Plan [facility] End: 07-14-2025 Immune Fecal OB - FIT Immune Fecal OB - FIT Lab Routine Routine general medical examination at a health care facility 1 Occurrences starting 07/14/2024 until 07/14/2025 [facility] Comment on above: 1 Occurrences starti ng 07/14/2024 until 07/14/2025 Immunizations Immunization Date Immunization Notes Care Provider Marlin rios 05-28-2023 influenza virus vaccine, unspecified formulation Drea Roa MD Work Phone: [facility] 06-08-2022 influenza, injectabl e, quadrivalent, preservative free Drea Roa MD Work Phone: [facility] 09-15-2020 COVID-19, mRNA, LNP- S, PF, 100mcg/0.5mL Dose Drea Roa MD Work Phone: [facility] 08-18-2020 COVID-19, mRNA, LNP- S, PF, 100mcg/0.5mL Dose Drea Roa MD Work Phone: [facility] 05-26-2020 influenza, injectabl e, quadrivalent, preservative free Drea Roa MD Work Phone: [facility] Payers Date Payer Category Payer Commercial Managed C are - HMO [employer] [id number] 2018 Unknown [employer] [id number] 2018-Present [phone] [address] [place] [address] [id number] 1959 Unknown [id number] [id number]. 2.593 1959 Unknown [id number] [id number]. 2.593 1959 Unknown [id number] [id number]. 2.1286 1959 Unknown [id number] [id number]. 2.1286 1959 Unknown [id number] [id number]. 2.1286 1959 Unknown [id number] [id number]. 2.1286 1959 Unknown [id number] [id number]. 2.1286 1959 Unknown [id number] [id number]. 2.1286 1959 Unknown [id number] [id number]. 2.1286 1960 Unknown [id number] Social History Date Type Detail Facility Start: 07-11-2022 Tobacco smoking status [facility] Never smoked tobacco [facility] Start: 07-11-2022 Tobacco use and exposure Smokeless tobacco non-user [facility] Start: 07-11-2023 End: 07-14-2024 Alcoholic beverage intake Current drinker of alcohol (finding) [facility] Start: 07-10-2022 End: 07-14-2024 History of Social function [facility] Start: 07-10-2022 End: 07-14-2024 Social connection and isolation panel [facility] Do you belong to any clubs or organizations such as quaker groups, unions, [employer] or athletic groups, or school groups? No [facility] Are you now , , , , never or living with a partner? [facility] How often to you hav e a drink containing alcohol? Monthly or less [facility] How many standard dr inks containing alcohol do you have on a typical day? 1 or 2 [facility] How often do you hav e 6 or more drinks on 1 occasion? Never [facility] How hard is it for y ou to pay for the very basics like food, housing, medical care, and heating Not hard at all [facility] Do you feel stress - tense, restless, nervous, or anxious, or unable to sleep at night because your mind is troubled all the time - these days [OSQ] Not at all [facility] Start: 06-29-2020 Education 15 [facility] Start: 07-11-2022 Alcohol Comment rarely [facility] Start: 1960 Sex assigned at Female [facility] Start: 03-16-2015 Sex Female (finding) [facility] Start: 05-30-2021 Gender identity Identifies as female gender (finding) [facility] Start: 05-30-2021 Sexual orientation Heterosexual (finding) [facility] Medical Equipment Procedure Code Equipment Code Equipment Origin al Text Equipment Identifier Dates Bearing Tib [id number] Kn Ant Stab Inlay Vngrd Arcm - [id number] Start: 08-16-2021 Cement Bn Bio 40 gm Rpl [id number] - [id number] Start: 08-16-2021 Component Fem Kn Lt 70mm Crcte Rtn Cmnt Prm Vngrd Intlk Cocr - [id number] Start: 08-16-2021 Tray Tib Ascnt M xm 75mm Intlk Cocr Kn I Beam - [id number] Start: 08-16-2021 Component Ptlr T hn 6.2mm 31mm 3 Pg Wr Vngrd Kn Strl Ser A - [id number] Start: 08-16-2021 Goals Date Patient Goal [...] from the original note were not included. [id number] [facility] [id number] Subjective: Salma Pelaez is a 63 [...] 08/06/2021 Left knee pain 08/01/2021 Rheumatoid arthritis ([facility]) 07/01/2020 Primary osteoarthritis of left knee 04/16/2018 Past Medical History: Diagnosis Date Breast disorder Benign Dental disease [place] GERD (gastroesophageal reflux disease) Hyperlipidemia Hypertension Kidney stones Osteoarthritis PONV (postoperative nausea and vomiting) Primary generalized (osteo)arthritis Rheumatoid arthritis ([facility]) Visual impairment Past Surgical History: Procedure Laterality Date BONE RESECTION, RIB In 's BREAST SURGERY Bilateral Breast biopsies x 5 KNEE ARTHROSCOPY Left 2000 REPLACEMENT TOTAL JOINT KNEE Left 08/16/2021 Performed by Drea Pierson MD at [facility] TUBAL LIGATION Age 24 Family History Problem [...] visit. Follow Up: [email or web address] Miscellaneous Notes US wnl's documented in this encounter [facility] 10-16-2023 Telephone encounter Note US wnl's [facility] 09-29-2023 History of Present illness Narrative OAARS check for soma refill documented in this encounter [facility] Evaluation note Diagnosis Rheumatoid arthritis, erosive, seronegative (CMS-HCC) documented in this encounter [facility] Diagnosis Abnormal mammogram of both breasts- Primary [facility] Diagnosis Rheumatoid arthritis, erosive, seronegative (CMS-HCC) [facility] Diagnosis Difficulty voiding- Primary Other symptoms involving urinary system Nephrolithiasis Calculus of kidney Nephrolithiasis- Primary Calculus of kidney Difficulty voiding Other symptoms involving urinary system Renal cyst Unspecified congenital cystic kidney disease Acute cough- Primary [facility] Diagnosis Difficulty voiding- Primary Other [...] hand, unspecified finger [facility] Diagnosis Difficulty voiding- Primary Other [...] Care Everywhere. * Yearly Physical for Adults (Bots[place]an) [facility] System[facility]ructionsNot on file documented in [facility] Summary Purpose Family History No Family History Records FoundNo Family History Records FoundNo Family History Records FoundNo Family History Records FoundNo Family History Records Found Advance Directives Documents on File Type Date Recorded Patient Line [employer] Living Will 08/06/2021 1:39 PM [place]IV[place] Durable Power of Mortgage Loan Processing Clerk 08/06/2021 1:39 PM POA Date Activated Date Inactivated Comments 08/16/2021 11:50 AM 08/17/2021 11:53 AM Latest Code Status on File Code Status Date Activated Date Inactivated Comments Full Code 08/16/2021 11:50 AM 08/17/2021 11:53 AM Documents on File Type Date Recorded Patient Line [employer] Living Will 08/06/2021 1:39 PM LIVING [place] Durable Power of Mortgage Loan Processing Clerk 08/06/2021 1:39 PM POA Date Activated Date Inactivated Comments 08/16/2021 11:50 AM 08/17/2021 11:53 AM Additional Source Comments INFORMATION SOURCE (unrecogn ized section and content) DATE CREATED AUTHOR 06/03/2020 [facility] DATE CREATED AUTHOR AUTHOR'S ORGANIZ ATION 09/11/2022 [facility] DATE CREATED AUTHOR AUTHOR'S ORGANIZ ATION 07/16/2024 [facility] DATE CREATED AUTHOR AUTHOR'S ORGANIZ ATION 07/27/2024 [facility] DATE CREATED AUTHOR AUTHOR'S ORGANIZ ATION 08/20/2024 [facility] Reason for Visit (unrecogniz ed section and content) Reason Comments Med Refill Reason Comments Annual Exam Care Teams (unrecognized sec tion and content) [employer] Worker Relationship Specialty Start Date End Date Drea Roa MD [address] [address] PCP - General Family [facility] 05/09/22 [employer] Worker Relationship Specialty Start Date End Date Drea Roa MD [address] [place] [address] PCP - General Family Medicine 05/09/22 [employer] Worker Relationship Specialty Start Date End Date Drea Roa MD [address] [place] [address] PCP - General Family Medicine 05/09/22 [employer] Worker Relationship Specialty Start Date End Date Drea Roa MD [address] [place] [address] PCP - General Family Medicine 05/09/22 [employer] Worker Relationship Specialty Start Date End Date Drea Roa MD [address] [place] [address] PCP - General Family Medicine 05/09/22 [employer] Worker Relationship Specialty Start Date End Date Drea Roa MD [address] [place] [address] PCP - General Family Medicine 05/09/22 [employer] Worker Relationship Specialty Start Date End Date Drea Roa MD [address] [place] [address] PCP - General Family Medicine 05/09/22 [employer] Worker Relationship Specialty Start Date End Date Drea Roa MD [address] [place] [address] PCP - General Family Medicine 05/09/22 [employer] Worker Relationship Specialty Start Date End Date Drea Roa MD [address] [address] PCP - [facility] 05/09/22 [employer] Worker Relationship Specialty Start Date End Date Drea Roa MD [address] [address] PCP - General Family Medicine 05/09/22 FOR [...] BE BASED ON THE PRIMARY CLINICAL RECORDS. [employer] [facility]. provides no warranty or guarantee of the accuracy or completeness of information in this document.
== END 2024-10-11 07:54 | disposition home or self-care (01) ==
LOC: RAD 07:53
PROVIDERS: PCP Family Medicine; Visit Provider Nurse Practitioner Family
DX: M85.80 Other specified disorders of bone density and structure, unspecified site (principal); Z13.820 Encounter for screening for osteoporosis; Z78.0 Asymptomatic menopausal state
CPT/HCPCS: 77080